=== PATIENT | female | born 1980 | race African-American/Black ===

== ENCOUNTER 2020-12-28 08:02 | Outpatient (REF) | payer OTHER, SELFPAY | END 2020-12-28 08:03 | disposition home or self-care (01) | LOC: HO.LAB 08:02 | PROVIDERS: Visit Provider Internal Medicine | DX: Z20.822 Contact with and (suspected) exposure to COVID-19 (principal) | CPT/HCPCS: 36415; C9803; U0003; U0005 ==

== ENCOUNTER 2021-06-30 15:43 | Emergency (ER) | payer OTHER, SELFPAY ==
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
--- NOTE | ~2021-06-30 | XR_ITS ---
EXAMINATION: XR ANKLE, RIGHT CLINICAL INFORMATION: Pain COMPARISON: None TECHNIQUE: AP, lateral, and mortise views of the right ankle. FINDINGS: Mild soft tissue swelling about the ankle. Underlying bony structures are unremarkable. No acute fracture or dislocation. Ankle mortise appears intact. XR/XR ankle RT min 3V IMPRESSION: Mild soft tissue swelling but no acute bony abnormality.
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
[2021-06-30 16:07] VITALS: BP 126/67; PULSE 93; RESP 16; TEMP 36.3; O2SAT 98; BMI 33.5
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
--- NOTE | 2021-06-30 17:34 | MHC.MBSS ---
PT STATING SHE IS ABOUT 6 WEEKS AND WILL SIGN CONSENT FORM TO HAVE CT SCAN. PT TOO EARLY TO GET HEART TONES ON.
[2021-06-30] MEDS: Ondansetron ODT 4 MG TAB.RAPDIS TRANSLINGU (18:17)
== END 2021-06-30 19:03 | disposition home or self-care (01) ==
PROVIDERS: Emergency Provider Emergency Medicine
DX: S13.4XXA Sprain of ligaments of cervical spine, initial encounter (principal); S13.9XXA Sprain of joints and ligaments of unspecified parts of neck, initial encounter; S93.401A Sprain of unspecified ligament of right ankle, initial encounter; S06.0X0A Concussion without loss of consciousness, initial encounter; G44.309 Post-traumatic headache, unspecified, not intractable; M25.571 Pain in right ankle and joints of right foot; H53.143 Visual discomfort, bilateral; M54.2 Cervicalgia; V43.12XA Car passenger injured in collision with other type car in nontraffic accident, initial encounter; Y93.9 Activity, unspecified; Y92.410 Unspecified street and highway as the place of occurrence of the external cause; Y99.9 Unspecified external cause status; Z79.899 Other long term (current) drug therapy
CPT/HCPCS: 70450; 72125; 73610; 99284

== ENCOUNTER 2021-07-05 16:44 | Emergency (ER) | payer OTHER, SELFPAY ==
--- NOTE | ~2021-07-05 | US_ITS ---
EXAMINATION: US OBSTETRICAL ULTRASOUND CLINICAL INFORMATION: Vaginal bleeding COMPARISON: None. TECHNIQUE: Only transabdominal scanning was performed. The patient refused endovaginal scanning. FINDINGS: Uterus appears unremarkable. A gestational sac is not seen. The endometrium appears slightly heterogeneous measuring 1.6 cm. No uterine masses are seen. The right ovary measures 2.2 x 1.2 x 1.5 cm and appears normal. Left ovary measures 2.1 x 1.6 x 1.1 cm and appears normal. No free fluid is present in the cul-de-sac US/US OB pelvic and transvaginal IMPRESSION: No gestational sac is present.
[2021-07-05 18:43] VITALS: BP 153/86; PULSE 86; RESP 18; TEMP 36.8; O2SAT 97; BMI 33.5
[2021-07-05 19:38] LABS: MANUAL DIFF FLAG NO
[2021-07-05 19:39] LABS: Basophils Percent Auto 0.4 % (0-2); Eosinophils Absolute Auto 0.2 X10*3/uL (0.0-0.4); Eosinophils Percent Auto 2.6 % (0-4); Hematocrit 35.6 % (37-47); Hemoglobin 11.4 g/dl (12.0-16.0); Imm Gran Abs Auto 0.01 X10*3/uL (0.00-0.03); Imm Gran Pct Auto 0.1 % (0.0-0.4); Lymphocytes Absolute Auto 2.6 X10*3/uL (1.2-4.9); Lymphocytes Percent Auto 33.7 % (20-40); Mean Corpuscular Hemoglobin 25.9 pg (27.0-33.0); Mean Corpuscular Volume 80.9 fL (80-98); Mean Platelet Volume 9.4 fL (9.4-12.3); Monocytes Absolute Auto 0.6 X10*3/uL (0.1-1.2); Monocytes Percent Auto 7.7 % (2-11); Neutrophils Absolute Auto 4.3 X10*3/uL (2.0-8.3); Neutrophils Percent Auto 55.5 % (45-73); Platelet Count 291 X10*3/uL (160-400); Red Cell Distribution Width 14.3 % (11.0-16.0); White Blood Count 7.8 X10*3/uL (4.8-10.8)
--- NOTE | 2021-07-05 19:40 | ED_ITS ---
HPI - General Chief complaint: Vaginal Bleeding Stated complaint: miscarriage Time Seen by Provider: 07/05/21 19:40 Source: patient Mode of arrival: ambulatory Limitations: no limitations History of Present Illness HPI Narrative: On Monday she was 6 weeks and passed clots and tissue. Since then she is still bleeding. prior patient had heart and was 6weeks and 1 day. patient is RH positive, 7 P5 Complaint: vaginal bleeding Onset (ago): day(s) Severity: mild Quality: Cramping Associated symptoms: denies other symptoms Related Data Previous Rx's Medication Instructions Recorded acetaminophen 500 mg tablet 500 mg PO Q6H PRN #14 tab 06/30/21 (Tylenol Extra Strength) lidocaine 5 % topical patch 1 patch TOPICAL DAILY #15 ea 06/30/21 (Lidoderm) ondansetron HCl 4 mg tablet 4 mg PO Q8H PRN #10 tab 06/30/21 (Zofran) Allergies Allergy/AdvReac Type Severity Reaction Status Date / Time No Known Allergies Allergy Verified 06/30/21 16:10 Review of Systems Constitutional: Constitutional: Reports no additional constitutional complaints Eyes: Eyes: Reports no additional eye complaints ENT: Denies dizziness Cardiovascular: Cardiovascular: Reports no additional cardiovascular complaints Respiratory: Respiratory: Reports as per HPI Gastrointestinal: Gastrointestinal: Reports no additional gastrointestinal complaints Genitourinary: Genitourinary: Reports no additional female genitourinary complaints Musculoskeletal: Musculoskeletal: Reports no additional musculoskeletal complaints Integumentary/Breasts: Skin/Breast: Denies rash Neurologic: Reports system reviewed and no additional complaints, except as documented, Denies dizziness and Denies Sensory deficit (Neuro) Psychiatric: Psychiatric: Denies anxiety FOR[facility] Social History Social History Advance Directives: No Advance Directives Information Provided: No Patient : No Physical Exam Vital Signs: Vital Signs: Last Vital Signs Temp 98.3 F 07/05/21 18:43 Pulse 86 07/05/21 18:43 Resp 18 07/05/21 18:43 BP 153/86 H 07/05/21 18:43 Pulse Ox 97 07/05/21 18:43 Body Mass Index 33.5 Const: General: healthy appearing Nutritional Appearance: average body habitus Orientation/consciousness: oriented to person and patient oriented x3 Limitations: no limitations HENMT: Head: Yes normal to inspection Ears: external ears normal General nose exam: Normal external nose present Mouth: Normal oral and palatal mucosa present and oropharynx normal Throat: Yes posterior oropharynx normal Eyes: General: appearance normal, both eyes and all related structures Neck: Other: supple Neck: Yes normal visual inspection Chest: Chest palpation & inspection: normal inspection of the chest Resp: Auscultation: clear to auscultation bilaterally Cardio: Jugular venous distension: no JVD Rate: regular rate Rhythm: regular rhythm Heart sounds: S1 normal heart sound present and S2 normal heart sound present GI: Inspection: Yes normal to inspection Palpation (GI): Soft to palpation, nontender and No hepatosplenomegaly present Auscultation: normal bowel sounds : Other: normal vagina, small blood in os, no clots no tissue, os is closed General: Yes no CVA tenderness Back/Spine/Pelvis: Back: no CVA tenderness Skin: General skin exam: no rashes or lesions noted Neuro: General: oriented to person and patient oriented x3 Cranial nerves: Yes CN's II-XII intact bilaterally Motor exam (neuro): 5/5 motor strength present throughout Sensory Exam: No Sensory deficit (Neuro) Extrem: General: Yes normal to inspection Psych: Appearance: grossly normal Course Reevaluation(s) Reevaluation #1: no active bleeding, cervical os not opened, US shows no retained products just thickened endometrium Time: 21:19 MDM - OB/Uterine Contractions Lab Data Result diagrams: 07/05/21 19:31 07/05/21 19:30 Labs: Lab Results 07/05/21 07/05/21 07/05/21 Range/Units 19:30 19:31 19:57 WBC 7.8 (4.8-10.8) X10*3/uL RBC 4.40 (4.20-5.50) X10*6/uL Hgb 11.4 L (12.0-16.0) g/dl Hct 35.6 L (37-47) % MCV 80.9 (80-98) fL MCH 25.9 L (27.0-33.0) pg MCHC 32.0 (31.0-35.0) g/dl RDW 14.3 (11.0-16.0) % Plt Count 291 (160-400) X10*3/uL MPV 9.4 (9.4-12.3) fL Immature Gran % (Auto) 0.1 (0.0-0.4) % Neut % (Auto) 55.5 (45-73) % Lymph % (Auto) 33.7 (20-40) % Burnet % (Auto) 7.7 (2-11) % Eos % (Auto) 2.6 (0-4) % Baso % (Auto) 0.4 (0-2) % Lymph # (Auto) 2.6 (1.2-4.9) X10*3/uL Burnet # (Auto) 0.6 (0.1-1.2) X10*3/uL Eos # (Auto) 0.2 (0.0-0.4) X10*3/uL Baso # (Auto) 0.0 (0.0-0.2) X10*3/uL Abs Immat Gran (auto) 0.01 (0.00-0.03) X10*3/uL Absolute Neuts (auto) 4.3 (2.0-8.3) X10*3/uL Absolute Nucleated RBC 0.000 (0.0-0.012) X10*3/uL Nucleated RBC % (auto) 0.0 (0.0-0.2) /100WBC Sodium 139 (135-145) mmol/L Potassium 4.0 (3.3-5.1) mmol/L Chloride 106 (96-108) mmol/L Carbon Dioxide 24 (22-29) mmol/L Anion Gap 13 (12-20) BUN 11 (9-16) mg/dL Creatinine 0.94 (0.5-1.4) mg/dL Estim Creat Clear Calc 92.1 Estimated GFR > 60 Random Glucose 87 (60-115) mg/dL Calcium 9.1 (8.4-10.2) mg/dL Total Bilirubin 0.2 (0.0-1.0) mg/dL AST 12 (5-31) U/L ALT 10 (0-31) U/L Alkaline Phosphatase 70 (39-117) U/L Total Protein 6.8 (6.5-8.0) g/dL Albumin 3.9 (3.5-5.0) g/dL Beta HCG, Quant 1413 mIU/mL Urine Color YELLOW Urine Appearance CLEAR Urine pH 6.0 (5.0-8.0) Ur Specific [place] 1.010 (1.005-1.025) Urine Protein NEG (NEG-TRACE) MG/DL Urine Glucose (UA) NEG (NEG) MG/DL Urine Ketones NEG (NEG) MG/DL Urine Blood 2+ H (NEG) Urine Nitrite NEG (NEG) Ur Leukocyte Esterase NEG (NEG) Urine RBC 5-9 H (0) /HPF Urine WBC 0-2 (0-4) /HPF Ur Squamous Epith Cells TRACE /LPF Urine Bacteria TRACE /LPF Imaging Data US - abdomen: Radiologist's impression: thickened endometrium no retained products Discharge Plan Discharge Clinical Impression: Missed Patient Disposition: Home, Self-Care Instructions: Miscarriage (ED) Prescriptions: No Action acetaminophen [Tylenol Extra Strength] 500 mg tablet 500 mg PO Q6H PRN (Reason: pain) Qty: 14 RF: 0 lidocaine [Lidoderm] 5 % adhesive patch,medicated 1 patch topical DAILY Qty: 15 RF: 0 ondansetron HCl [Zofran] 4 mg tablet 4 mg PO Q8H PRN (Reason: nausea and vomiting) Qty: 10 RF: 0 Referrals: Physician,Unknown [Primary Care Provider] - 2 days
[2021-07-05 19:57] LABS: Alanine Aminotransferase 10 U/L (0-31); Albumin Level 3.9 g/dL (3.5-5.0); Alkaline Phosphatase 70 U/L (39-117); Anion Gap 13 (12-20); Aspartate Amino Transferase 12 U/L (5-31); Bilirubin Total 0.2 mg/dL (0.0-1.0); Blood Urea Nitrogen 11 mg/dL (9-16); Calcium 9.1 mg/dL (8.4-10.2); Carbon Dioxide 24 mmol/L (22-29); Chloride 106 mmol/L (96-108); Creatinine Clr Calc Pharmacy 92.1; Estimated Glomerular Filt Rate > 60; Glucose Random 87 mg/dL (60-115); Sodium 139 mmol/L (135-145); Total Protein 6.8 g/dL (6.5-8.0)
[2021-07-05 20:03] LABS: HCG Quantitative 1413 mIU/mL
[2021-07-05 20:04] LABS: Appearance Urine CLEAR; Color Urine YELLOW; Glucose Urine UA NEG (NEG); Leukocyte Esterase Urine NEG (NEG); Nitrite Urine NEG (NEG); UACC Culture Trigger NO; Urine Blood 2+ (NEG); Urine Ketones NEG (NEG); Urine Protein NEG (NEG-TRACE)
[2021-07-05 20:13] LABS: WBC Urine 0-2 /HPF (0-4)
[2021-07-05 20:17] LABS: Bacteria Urine TRACE /LPF; Squamous Epithelial Cell Urine TRACE /LPF
== END 2021-07-05 22:08 | disposition home or self-care (01) ==
PROVIDERS: Emergency Provider Emergency Medicine
DX: O20.9 Hemorrhage in early pregnancy, unspecified (principal); Z3A.01 Less than 8 weeks gestation of pregnancy; Z79.899 Other long term (current) drug therapy
CPT/HCPCS: 36415; 76801; 76817; 80053; 81001; 84702; 85025; 99283; 99284

== ENCOUNTER 2021-07-29 10:13 | Emergency (ER) | payer OTHER, SELFPAY ==
--- NOTE | ~2021-07-29 | XR_ITS ---
EXAMINATION: XR KNEE, RIGHT CLINICAL INFORMATION: Trauma, pain COMPARISON: None TECHNIQUE: Four views of the right knee. FINDINGS: There is no fracture, dislocation, destructive process. No focal joint narrowing or erosive change or chondrocalcinosis. Hoffa's fat pad in the deep infrapatellar recess appears normal. There is some mild thickening suprapatellar bursa suggesting small effusion. The distal quadriceps tendon appears thickened and the bursal side margin is ill-defined. XR/XR knee RT 4V IMPRESSION: 1. No fracture or dislocation. 2. Probable small suprapatellar effusion. Nonspecific thickening distal quadriceps with ill-defined bursal side contour. Recommend correlation with clinical impression for potential quadriceps injury.
[2021-07-29 10:54] VITALS: BP 124/75; PULSE 92; RESP 17; TEMP 36.4; O2SAT 98; BMI 33.5
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
[2021-07-29] MEDS: traMADoL HCL 50 MG TABLET PO (12:28)
--- NOTE | 2021-07-29 13:23 | PC.NURSE ---
PT CONFRONTATIONAL WITH THIS RN. PT SAYING [facility] [place] [facility], YOU ALL DONT KNOW WHAT YOU ARE DOING OVER HERE. IM GOING TO [facility]. PT OFFERED CRUTCHES AND MELISSA WRAP FOR HER RIGHT KNEE. PT AT FIRST SAYING NO I DONT WANT THAT, YOU GUYS ARENT DOING ANYTHING FOR ME. THEN I ATTEMPT TO LEAVE THE ROOM, PT STARTS ORDERING THIS RN TO PUT MELISSA WRAP ON HER KNEE. CHARGE NURSE MADE AWARE AND PROVIDER.
[2021-07-29 13:39] VITALS: RESP 18
== END 2021-07-29 13:43 | disposition home or self-care (01) ==
PROVIDERS: Emergency Provider Emergency Medicine Emergency Medical Services; PCP Internal Medicine
DX: S80.01XA Contusion of right knee, initial encounter (principal); M25.561 Pain in right knee; Y04.8XXA Assault by other bodily force, initial encounter; Y93.9 Activity, unspecified; Y92.9 Unspecified place or not applicable; Y99.9 Unspecified external cause status; Z79.899 Other long term (current) drug therapy
CPT/HCPCS: 73564; 99283

== ENCOUNTER 2021-12-18 15:23 | Emergency (ER) | payer OTHER, SELFPAY ==
--- NOTE | ~2021-12-18 | US_ITS ---
EXAMINATION: US OBSTETRICAL ULTRASOUND CLINICAL INFORMATION: Abdominal pain. No bleeding. HCG 212. Last menstrual period is unknown. COMPARISON: 07/05/2021. TECHNIQUE: Ultrasound of the maternal pelvis is performed using transabdominal and transvaginal transducers. Transvaginal imaging is performed due to inadequate visualization transabdominally. M-mode Doppler is also performed. FINDINGS: No identifiable intrauterine gestational sac. The endometrium is heterogeneous and thickened measuring up to 1.6 cm with associated vascularity. Nabothian cysts overlie the cervix and the cervical canal appears closed. The ovaries are normal in morphology with preserved flow at the moment of this examination. The right ovary measures 2.3 x 1.4 x 1.4 cm and the left ovary measures 5.1 x 2.9 x 4.8 cm. There is a 4.5 x 2.4 x 3.8 cm simple appearing cyst in the left ovary, likely a dominant follicle. US/US OB <= 14 weeks fetus IMPRESSION: No evidence of intrauterine gestational sac in this examination. The endometrium is thickened, heterogeneous and hypervascular. Differential considerations for this appearance include retained products of conception, endometritis or less likely an AVM in the absence of recent intervention. Clinical correlation is warranted.
[2021-12-18 15:49] VITALS: BP 126/76; PULSE 100; RESP 19; TEMP 36.6; O2SAT 98; BMI 32.3
[2021-12-18 16:16] LABS: MANUAL DIFF FLAG NO
[2021-12-18 16:18] LABS: Basophils Percent Auto 0.3 % (0-2); Eosinophils Absolute Auto 0.1 X10*3/uL (0.0-0.4); Hematocrit 43.1 % (37.0-47.0); Hemoglobin 13.5 g/dl (12.0-16.0); Imm Gran Abs Auto 0.03 X10*3/uL (0.00-0.03); Imm Gran Pct Auto 0.3 % (0.0-0.4); Lymphocytes Absolute Auto 1.8 X10*3/uL (1.2-4.9); Lymphocytes Percent Auto 20.8 % (20-40); Mean Corpuscular HGB Conc 31.3 g/dl (31.0-35.0); Mean Corpuscular Volume 79.8 fL (80.0-98.0); Mean Platelet Volume 9.2 fL (9.4-12.3); Monocytes Absolute Auto 0.5 X10*3/uL (0.1-1.2); Neutrophils Absolute Auto 6.2 x10*3/uL (2.0-8.3); Neutrophils Percent Auto 71.6 % (45-73); Platelet Count 342 X10*3/uL (160-400); Red Cell Distribution Width 16.6 % (11.0-16.0); White Blood Count 8.7 X10*3/uL (4.8-10.8)
[2021-12-18 16:19] LABS: Appearance Urine CLEAR; Color Urine YELLOW; Glucose Urine UA NEG (NEG); Leukocyte Esterase Urine NEG (NEG); Nitrite Urine NEG (NEG); Specific Gravity - Urine 1.025 (1.005-1.025); UACC Culture Trigger NO; Urine Blood TRACE (NEG); Urine Ketones 5 MG/DL (NEG); Urine Protein NEG (NEG-TRACE)
[2021-12-18 16:30] LABS: Anion Gap 11 (12-20); Blood Urea Nitrogen 9 mg/dL (9-16); Calcium 9.5 mg/dL (8.4-10.2); Carbon Dioxide 26 mmol/L (22-29); Chloride 101 mmol/L (96-108); Creatinine Clr Calc Pharmacy 82.3; Estimated Glomerular Filt Rate 60; Glucose Random 103 mg/dL (60-115); Potassium 4.2 mmol/L (3.3-5.1); Sodium 134 mmol/L (135-145)
[2021-12-18 16:37] LABS: HCG Quantitative 212 mIU/mL
[2021-12-18 16:46] LABS: Bacteria Urine 1+ /LPF; Mucus Urine TRACE /LPF; Squamous Epithelial Cell Urine 1+ /LPF; WBC Urine 0-2 /HPF (0-4)
--- NOTE | 2021-12-18 20:05 | ED_ITS ---
HPI - Abdominal Pain General Chief Complaint: Abdominal Pain Stated Complaint: possible ectopic /dizziness Time Seen by Provider: 12/18/21 17:40 History of Present Illness HPI narrative: Patient is a 41-year-old female had to elective termination in the past also had a miscarriage. Patient last menstrual period was early November. [facility]. It was in the 200 range. Patient was given a pill Two days prior and was given suppositories x4 yesterday. she is complaining of some cramping in the lower abdomen. No vaginal bleeding. Patient from home. [facility] did not show an intrauterine it did show a possible cyst in the ovary. Patient never had ectopic in the past. No fever no chills no cough no congestion or upper respiratory symptoms no diaphoresis. Patient is from home Related Data Previous Rx's Medication Instructions Recorded acetaminophen 500 mg tablet 500 mg PO Q6H PRN #14 tab 06/30/21 (Tylenol Extra Strength) lidocaine 5 % topical patch 1 patch TOPICAL DAILY #15 ea 06/30/21 (Lidoderm) ondansetron HCl 4 mg tablet 4 mg PO Q8H PRN #10 tab 06/30/21 (Zofran) oxycodone 5 mg capsule 5 mg PO Q8H PRN #10 cap 07/29/21 Allergies Allergy/AdvReac Type Severity Reaction Status Date / Time No Known Allergies Allergy Verified 06/30/21 16:10 Review of Systems Review of Systems positive abdominal pain. No nausea no vomiting Yes all other systems are reviewed and are negative [facility] Past Medical History Attestation statement: The following information was validated with the patient. Social History Social History Advance Directives: No Advance Directives Information Provided: No Patient : Yes Physical Exam ED Vital Signs: Vital Signs - 24 hr 12/18/21 15:49 Temperature 98 F Pulse Rate 100 Respiratory Rate 19 Blood Pressure 126/76 Pulse Oximetry 98 BMI result Body Mass Index 32.3 Appearance: Alert. Oriented X3. No acute distress. Eyes: Pupils equal, round and reactive to light. ENT: Pharynx normal. Neck: Normal inspection. Neck supple. No lymph nodes noted. No crepitus CVS: Normal heart rate and rhythm. Pulses normal. Normal S1 and S2 Respiratory: No respiratory distress. Breath sounds normal. No Wheezing. No rales Abdomen: Soft and nontender. No rigidity. No distention. good BS x4 Skin: Skin warm and dry. Normal skin color. Normal skin turgor. Extremities: No lower extremity edema. Neurovascular intact to all extremities. No Lacerations. No Rash Neuro: Oriented X 3. No motor deficit. No sensory deficit. Moving all extermities. No slurred speech MDM - Abdominal Pain MDM Narrative Medical decision making narrative: case discussed with OBGYN Dr. Rm. will get a ultrasound to look for a large ovarian mass. Patient in no distress. Patient's quant is in 200 range which is unchanged. Case discussed with OBGYN felt that patient likely had a failed elective termination. Ultrasound review a simple cyst only. This finding was also discussed with OB. Will [facility] Worsened pain risk of ectopic still exist. Return to the emergency department immediately. In stable condition with discharge home. Medical Records Attestation: I reviewed the patient's medical records. Lab Data Attestation: I reviewed the patient's lab results. Result diagrams: 12/18/21 16:04 12/18/21 16:04 Labs: Lab Results 12/18/21 12/18/21 12/18/21 Range/Units 16:04 16:04 16:04 WBC 8.7 (4.8-10.8) X10*3/uL RBC 5.40 (4.20-5.50) X10*6/uL Hgb 13.5 (12.0-16.0) g/dl Hct 43.1 (37.0-47.0) % MCV 79.8 L (80.0-98.0) fL MCH 25.0 L (27.0-33.0) pg MCHC 31.3 (31.0-35.0) g/dl RDW 16.6 H (11.0-16.0) % Plt Count 342 (160-400) X10*3/uL MPV 9.2 L (9.4-12.3) fL Immature Gran % (Auto) 0.3 (0.0-0.4) % Neut % (Auto) 71.6 (45-73) % Lymph % (Auto) 20.8 (20-40) % Maverick % (Auto) 6.0 (2-11) % Eos % (Auto) 1.0 (0-4) % Baso % (Auto) 0.3 (0-2) % Lymph # (Auto) 1.8 (1.2-4.9) X10*3/uL [place] # (Auto) 0.5 (0.1-1.2) X10*3/uL Eos # (Auto) 0.1 (0.0-0.4) X10*3/uL Baso # (Auto) 0.0 (0.0-0.2) X10*3/uL Abs Immat Gran (auto) 0.03 (0.00-0.03) X10*3/uL Absolute Neuts (auto) 6.2 (2.0-8.3) x10*3/uL Absolute Nucleated RBC 0.000 (0.0-0.012) X10*3/uL Nucleated RBC % (auto) 0.0 (0.0-0.2) /100WBC Sodium 134 L (135-145) mmol/L Potassium 4.2 (3.3-5.1) mmol/L Chloride 101 (96-108) mmol/L Carbon Dioxide 26 (22-29) mmol/L Anion Gap 11 L (12-20) BUN 9 (9-16) mg/dL Creatinine 1.02 (0.5-1.4) mg/dL Estim Creat Clear Calc 82.3 Estimated GFR 60 Random Glucose 103 (60-115) mg/dL Calcium 9.5 (8.4-10.2) mg/dL Beta HCG, Quant 212 mIU/mL Urine Color Urine Appearance Urine pH (5.0-8.0) Ur Specific [place] (1.005-1.025) Urine Protein (NEG-TRACE) MG/DL Urine Glucose (UA) (NEG) MG/DL Urine Ketones (NEG) MG/DL Urine Blood (NEG) Urine Nitrite (NEG) Ur Leukocyte Esterase (NEG) Urine RBC (0) /HPF Urine WBC (0-4) /HPF Ur Squamous Epith Cells /LPF Urine Bacteria /LPF Urine Mucus /LPF Blood Type 12/18/21 12/18/21 Range/Units 16:04 16:04 WBC (4.8-10.8) X10*3/uL RBC (4.20-5.50) X10*6/uL Hgb (12.0-16.0) g/dl Hct (37.0-47.0) % MCV (80.0-98.0) fL MCH (27.0-33.0) pg MCHC (31.0-35.0) g/dl RDW (11.0-16.0) % Plt Count (160-400) X10*3/uL MPV (9.4-12.3) fL Immature Gran % (Auto) (0.0-0.4) % Neut % (Auto) (45-73) % Lymph % (Auto) (20-40) % Maverick % (Auto) (2-11) % Eos % (Auto) (0-4) % Baso % (Auto) (0-2) % Lymph # (Auto) (1.2-4.9) X10*3/uL [place] # (Auto) (0.1-1.2) X10*3/uL Eos # (Auto) (0.0-0.4) X10*3/uL Baso # (Auto) (0.0-0.2) X10*3/uL Abs Immat Gran (auto) (0.00-0.03) X10*3/uL Absolute Neuts (auto) (2.0-8.3) x10*3/uL Absolute Nucleated RBC (0.0-0.012) X10*3/uL Nucleated RBC % (auto) (0.0-0.2) /100WBC Sodium (135-145) mmol/L Potassium (3.3-5.1) mmol/L Chloride (96-108) mmol/L Carbon Dioxide (22-29) mmol/L Anion Gap (12-20) BUN (9-16) mg/dL Creatinine (0.5-1.4) mg/dL Estim Creat Clear Calc Estimated GFR Random Glucose (60-115) mg/dL Calcium (8.4-10.2) mg/dL Beta HCG, Quant mIU/mL Urine Color YELLOW Urine Appearance CLEAR Urine pH 6.0 (5.0-8.0) Ur Specific [place] 1.025 (1.005-1.025) Urine Protein NEG (NEG-TRACE) MG/DL Urine Glucose (UA) NEG (NEG) MG/DL Urine Ketones 5 (NEG) MG/DL Urine Blood TRACE (NEG) Urine Nitrite NEG (NEG) Ur Leukocyte Esterase NEG (NEG) Urine RBC 1-4 (0) /HPF Urine WBC 0-2 (0-4) /HPF Ur Squamous Epith Cells 1+ /LPF Urine Bacteria 1+ /LPF Urine Mucus TRACE /LPF Blood Type O Positive Discharge Plan Discharge Clinical Impression: Encounter for elective termination of , Ectopic Patient Disposition: Home, Self-Care Instructions: Ectopic (DC) Prescriptions: No Action acetaminophen [Tylenol Extra Strength] 500 mg tablet 500 mg PO Q6H PRN (Reason: pain) Qty: 14 0RF lidocaine [Lidoderm] 5 % adhesive patch,medicated 1 patch topical DAILY Qty: 15 0RF Rx Instructions: leave on most painful area for up to 12 hrs. May be substituted ondansetron HCl [Zofran] 4 mg tablet 4 mg PO Q8H PRN (Reason: nausea and vomiting) Qty: 10 0RF oxycodone 5 mg capsule 5 mg PO Q8H PRN (Reason: pain) Qty: 10 0RF [facility]errals: [facility] [Provider Group] - 2 days ( Risk of ectopic still exists. [facility].)
--- NOTE | 2021-12-18 20:12 | PM.GYNCN ---
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 The patient about that she had a positive test few days ago, [facility] and was given Mifepristone po 2 days ago followed by misoprostol 800 mcg vaginally that the patient took yesterday and since then she has been having some cramping but no vaginal bleeding. The patient states that she [facility] which showed no intrauterine and hCG was in the 200 range. No abdominal pain no vaginal bleeding no nausea or vomiting. 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 Review of Systems ROS Unobtainable: All systems reviewed & are unremarkable except as noted in HPI and below Cardiovascular: Denies Palpatations, Loss of consciousness or Chest pain Respiratory: Denies Cough, Wheezing or Shortness of breath Musculoskeletal: Denies Low back pain Gastrointestinal: Denies Heartburn, Constipation, Diarrhea, Nausea or Vomiting Genitourinary: Denies Pain with urination, Burning with urination or Urinary frequency Neurological: Denies Migranes Psychological: Denies Depression OB PMFSH Social History Social History Advance Directives: No Advance Directives Information Provided: No Patient : Yes Meds Allergies Allergy/AdvReac Type Severity Reaction Status Date / Time No Known Allergies Allergy Verified 06/30/21 16:10 [employer] Physical Exam Vitals Vital signs: Temp Pulse Resp BP Pulse Ox 98 F 100 19 126/76 98 12/18/21 15:49 12/18/21 15:49 12/18/21 15:49 12/18/21 15:49 12/18/21 15:49 BMI result Body Mass Index 32.3 Constitutional General Appearance: Healthy appearing, Well-nourished and Well-developed Psychiatric Mood and Affect: active and alert, normal mood and normal affect Skin Appearance: No rashes and No lesions Lungs Respiratory Effort: No intercostal retractions Auscultation: Clear to auscultation Cardiovascular Auscultation: RRR Abdomen Auscultation/Inspection/Palpation: Normal bowel sounds, Soft, Non-distended and No tenderness Female Genitalia (Pelvic) Exam: Deferred Additional Comments: Dr. Cope reported Abdominal exam to be benign [employer] - Results Labs CBC & Chem 7: 12/18/21 16:04 12/18/21 16:04 Labs: Short CBC 12/18/21 Range/Units 16:04 WBC 8.7 (4.8-10.8) X10*3/uL Hgb 13.5 (12.0-16.0) g/dl Hct 43.1 (37.0-47.0) % Plt Count 342 (160-400) X10*3/uL BMP 12/18/21 16:04 Sodium 134 L Potassium 4.2 Chloride 101 Carbon Dioxide 26 BUN 9 Creatinine 1.02 Calcium 9.5 Urine 12/18/21 Range/Units 16:04 Urine Color YELLOW Urine Appearance CLEAR Urine pH 6.0 (5.0-8.0) Ur Specific [place] 1.025 (1.005-1.025) Urine Protein NEG (NEG-TRACE) MG/DL Urine Glucose (UA) NEG (NEG) MG/DL Assessment and Plan (1) Early stage of : Status: Acute Since the patient's abdominal exam is benign, hCG 252 and Rh positive, recommended the following: pelvic ultrasound to rule out any adnexal masses suspicious for ectopic , if negative, the patient is to be discharged home with SAB/incomplete AB/ectopic warnings, to come back for abdominal/pelvic pain fever or heavy vaginal bleeding otherwise [facility] .
[2021-12-18] MEDS: 0.9 % Sodium Chloride 1,000 ML 999 ML IV (20:18)
== END 2021-12-18 23:33 | disposition home or self-care (01) ==
PROVIDERS: Emergency Provider Emergency Medicine Emergency Medical Services
DX: O07.39 Failed attempted termination of pregnancy with other complications (principal); O00.00 Abdominal pregnancy without intrauterine pregnancy; O08.89 Other complications following an ectopic and molar pregnancy; R10.30 Lower abdominal pain, unspecified; N88.8 Other specified noninflammatory disorders of cervix uteri; N83.292 Other ovarian cyst, left side
CPT/HCPCS: 36415; 76801; 80048; 81001; 84702; 85025; 86900; 86901; 96360; 99283; 99284

== ENCOUNTER 2021-12-22 13:21 | Outpatient (REF) | payer OTHER, SELFPAY ==
[2021-12-22 15:26] LABS: HCG Quantitative 12 mIU/mL
[2021-12-23 05:29] LABS: CT PCR NOT DETECTED (Not Detect.); NG PCR NOT DETECTED (Not Detect.)
== END 2021-12-22 13:22 | disposition home or self-care (01) ==
LOC: HO.LAB 13:21
PROVIDERS: Visit Provider Obstetrics & Gynecology
DX: O03.9 Complete or unspecified spontaneous abortion without complication (principal); Z30.09 Encounter for other general counseling and advice on contraception
CPT/HCPCS: 36415; 84702; 87491; 87591; 99202

== ENCOUNTER 2022-02-14 20:40 | Emergency (ER) | payer OTHER, SELFPAY ==
--- NOTE | 2022-02-14 | ECG_ITS ---
Test Reason : CHEST PAIN Blood Pressure : / mmHG Vent. Rate : 079 BPM Atrial Rate : 079 BPM P-R Int : 186 ms QRS Dur : 086 ms QT Int : 366 ms P-R-T Axes : 060 060 039 degrees QTc Int : 419 ms Normal sinus rhythm Normal ECG No previous ECGs available Referred By: Generic ED Physician Electronically Signed By:DAYAN COTA MD
== END 2022-02-14 23:01 | disposition left against medical advice (07) ==
LOC: HO.ED 22:58
PROVIDERS: Emergency Provider Emergency Medicine
DX: R07.9 Chest pain, unspecified (principal)
CPT/HCPCS: 93005; 99281; 99283

== ENCOUNTER 2022-03-31 14:36 | Outpatient (REF) | payer OTHER, SELFPAY ==
[2022-04-06 22:56] LABS: HPV mRNA E6/E7 rflx Not Detected (Not Detected)
== END 2022-03-31 14:37 | disposition home or self-care (01) ==
LOC: HO.LAB 14:36
PROVIDERS: Visit Provider Obstetrics & Gynecology
DX: Z01.419 Encounter for gynecological examination (general) (routine) without abnormal findings (principal); Z11.51 Encounter for screening for human papillomavirus (HPV)
CPT/HCPCS: 87624; 88142

== ENCOUNTER 2023-01-04 19:17 | Emergency (ER) | payer OTHER, SELFPAY ==
--- NOTE | ~2023-01-04 | US_ITS ---
EXAMINATION: US VENOUS ULTRASOUND WITH DOPPLER LOWER EXTREMITY, LEFT CLINICAL INFORMATION: Swelling, postop COMPARISON: None available. TECHNIQUE: Ultrasound of the deep veins is performed from the hip to the calf with compression sonography and color and pulse Doppler assessment. Spectral analysis with color-flow imaging is performed. FINDINGS: There is normal venous compression and respiratory variation and augmented flow. The visualized common femoral vein, superficial femoral vein, profunda femoral vein, popliteal vein, and the trifurcation region shows no evidence of deep venous thrombosis. There is no significant popliteal fossa cyst. In the superficial soft tissues of the left inguinal region, there is a 13.4 x 3.5 x 7.4 cm complex well-defined fluid collection. US/US venous duplex LE LT IMPRESSION: No DVT demonstrated in the left lower extremity.
[2023-01-04 19:28] VITALS: BP 146/70; PULSE 100; RESP 16; TEMP 36.4; O2SAT 98; BMI 29.0
--- NOTE | 2023-01-04 19:29 | ED.GENADULT ---
HPI - General Adult General Chief complaint: Extremity Problem <CAMILA Santillan - Last Filed: 01/04/23 19:35> Stated complaint: left inner thigh..states pocket of fluid <CAMILA Santillan - Last Filed: 01/04/23 19:35> Time Seen by Provider: 01/04/23 21:22 <CAMILA Santillan - Last Filed: 01/04/23 19:35> Source: patient <Nico Lieberman MD - Last Filed: 01/04/23 23:32> Mode of arrival: ambulatory <Nico Lieberman MD - Last Filed: 01/04/23 23:32> Limitations: no limitations <Nico Lieberman MD - Last Filed: 01/04/23 23:32> History of Present Illness HPI narrative: Patient is status post BBL with fat transfer. on 12/21 in [place] comes here for left thigh swelling ultrasound done prior to my evaluation showed fluid collection > seroma. No pain no fever no redness of the skin <Nico Lieberman MD - Last Filed: 01/04/23 23:32> Related Data Home medications: Home Medications Medication Instructions Recorded Confirmed divalproex 500 mg tablet,delayed 1,000 mg PO BID 03/31/22 release (Depakote) Previous Rx's Medication Instructions Recorded acetaminophen 500 mg tablet 500 mg PO Q6H PRN pain #14 tabs 06/30/21 (Tylenol Extra Strength) <CAMILA Santillan - Last Filed: 01/04/23 19:35> Allergies/adverse reactions: Allergies Allergy/AdvReac Type Severity Reaction Status Date / Time No Known Allergies Allergy Verified 01/04/23 19:34 <CAMILA Santillan - Last Filed: 01/04/23 19:35> Review of Systems Review of Systems: Yes all other systems are reviewed and are negative <Nico Lieberman MD - Last Filed: 01/04/23 23:32> PMFSH Past Medical History Medical History: Medical History Anemia Asthma Bipolar 1 disorder Cervical high risk HPV (human papillomavirus) test positive <CAMILA Santillan - Last Filed: 01/04/23 19:35> Social History Social History: Social History Patient Tobacco Use Status: Never used Tobacco Advance Directives: No Advance Directives Information Provided: No Patient : No <CAMILA Santillan - Last Filed: 01/04/23 19:35> Physical Exam ED Vital Signs: Vital Signs - 24 hr 01/04/23 19:28 01/04/23 22:00 Temperature 97.6 F 97.9 F Pulse Rate 100 96 Respiratory Rate 16 16 Blood Pressure 146/70 H 115/69 Pulse Oximetry 98 97 Oxygen Delivery Method Room Air BMI result Body Mass Index 29.0 <CAMILA Santillan - Last Filed: 01/04/23 19:35> Vital Signs - 24 hr 01/04/23 19:28 01/04/23 22:00 Temperature 97.6 F 97.9 F Pulse Rate 100 96 Respiratory Rate 16 16 Blood Pressure 146/70 H 115/69 Pulse Oximetry 98 97 Oxygen Delivery Method Room Air BMI result Body Mass Index 29.0 <Nico Lieberman MD - Last Filed: 01/04/23 23:32> Appearance: Alert. Oriented X3. No acute distress. Neck: Normal inspection. Neck supple. CVS: Normal heart rate and rhythm. Pulses normal. Respiratory: No respiratory distress. Equal air entry bilateral, Abdomen: Soft and nontender. Bowel sounds are present, Skin: Skin warm and dry. Normal skin color. Normal skin turgor. Extremities: No lower extremity edema. No calf tenderness large soft tissue fluctuance swelling left thigh Neuro: Oriented X 3. <Nico Lieberman MD - Last Filed: 01/04/23 23:32> Course Course Course Narrative: RME - 42 yo female with recent inner thigh liposuction on 12/21 in [place] presents to the ER for evaluation of left thigh seroma and left leg swelling that started last week. She has been getting lymphatic massages that has not helped the drainage. No fevers, redness or warmth over the area. No drainage. She would like to have the seroma drained. It makes it hard to walk. Exam is consistent with a moderate sized seroma to the inner thigh, no overlying warmth or erythema. She has some generalized swelling of the LLE into the calf and foot, tightness in the calf. Plan: U/S LLE to r/o DVT, ?discuss with gen surgery management of seroma. <CAMILA Santillan - Last Filed: 01/04/23 19:35> Medications Administered Discontinued Medications Generic Name Dose Route Start Last Admin Trade Name Freq PRN Reason Stop Dose Admin Lidocaine HCl 5 ml 01/04/23 21:46 01/04/23 22:05 Lidocaine Hcl 1 % Mpf 5 Ml Vial INFILTRATI 01/04/23 21:47 5 ml ONCE ONE Administration <CAMILA Santillan - Last Filed: 01/04/23 19:35> Medications Administered Discontinued Medications Generic Name Dose Route Start Last Admin Trade Name Freq PRN Reason Stop Dose Admin Lidocaine HCl 5 ml 01/04/23 21:46 01/04/23 22:05 Lidocaine Hcl 1 % Mpf 5 Ml Vial INFILTRATI 01/04/23 21:47 5 ml ONCE ONE Administration <Nico Lieberman MD - Last Filed: 01/04/23 23:32> Procedures Abscess I/D Site: lower extremity (Left thigh) <Nico Lieberman MD - Last Filed: 01/04/23 23:32> Side (if applicable): left <Nico Lieberman MD - Last Filed: 01/04/23 23:32> Local Anesthetic: lidocaine 1% <Nico Lieberman MD - Last Filed: 01/04/23 23:32> Amount of anesthesia used (mL): 1 <Nico Lieberman MD - Last Filed: 01/04/23 23:32> Technique: needle aspiration <Nico Lieberman MD - Last Filed: 01/04/23 23:32> Amount of fluid expressed (mL): 100 <Nico Lieberman MD - Last Filed: 01/04/23 23:32> Sent for culture/gram staining?: No <Nico Lieberman MD - Last Filed: 01/04/23 23:32> Irrigation: No <Nico Lieberman MD - Last Filed: 01/04/23 23:32> Packing used?: none <Nico Lieberman MD - Last Filed: 01/04/23 23:32> Medical Decision Making Medical Decision Making MDM Narrative: Patient had a huge seroma left thigh post fast transfer and BBL surgery which was drained using needle aspiration clear fluid was drained about 100 cc patient felt much better and comfortable pressure dressing was applied <Nico Lieberman MD - Last Filed: 01/04/23 23:32> Discharge Plan Discharge Clinical Impression: Seroma, post-traumatic <CAMILA Santillan - Last Filed: 01/04/23 19:35> Patient Disposition: Home, Self-Care <CAMILA Santillan - Last Filed: 01/04/23 19:35> Instructions: Seroma (DC) <CAMILA Santillan - Last Filed: 01/04/23 19:35> Additional Instructions: Local care as advised Follow-up with surgeon if any concerns <CAMILA Santillan - Last Filed: 01/04/23 19:35> Prescriptions: No Action acetaminophen [Tylenol Extra Strength] 500 mg tablet 500 mg PO Q6H PRN (Reason: pain) Qty: 14 0RF divalproex [Depakote] 500 mg tablet,delayed release (DR/EC) 1,000 mg PO BID <CAMILA Santillan - Last Filed: 01/04/23 19:35> Referrals: Melida Aponte MD [Physician] - 1 week <CAMILA Santillan - Last Filed: 01/04/23 19:35> Interventions: ED Discharge Assessment Last Done: 01/04/23 23:27 <CAMILA Santillan - Last Filed: 01/04/23 19:35>
--- OUTSIDE RECORDS SUMMARY | 2023-01-04 21:37 | XMS_ITS | Continuity of Care Document ---
Author Name Unknown Organization [facility] Address [address] [place] [address]- Care Team Providers Care Coffee Brewer Name Role Phone Checo John Primary Care Physician [phone] Encounter [facility] Date(s): 04/15/22 - 08/13/22 [facility] [address] [place] [address] Attending Physician: Jenae WOLF, [facility] Referring Physician: Checo John Allergies, Adverse Reactions, Alerts Substance Reaction Severity Status Milk Products Resolved Pork Active Immunizations Given and Recorded Vaccine Date Status Refusal Reason SARS-CoV-2 (COVID-19) mRNA-1273 vaccine 08/28/21 R ecorded SARS-CoV-2 (COVID-19) mRNA-1273 vaccine 07/31/21 R ecorded tetanus/diphtheria/pertussis, acel(Tdap) 10/24/13 Given Medications albuterol CFC free 90 mcg/inh inhalation aerosol 2, puffs, Inhalation, 4 times a day, PRN, # 1 each, Refills 11, Tot. Refills 11, Maintenance, 08/20/21 16:07:00 EST, Aerosol, Route to Pharmacy Electronically, [id number], [facility] #[id number], 168, cm, 08/20/21 15:40:... Start Date: 08/20/21 Stop Date: 08/15/22 Status: Ordered Depakote ER = 250 mg, By Mouth, Daily, 0 Refills, Maintenance, 02/11/22 13:50:00 EDT, Partial fill upon patientrequest if the prescription is for a schedule II opioid drug. Start Date: 02/11/22 Status: Ordered fluconazole 150 mg oral tablet 1 tablet = 150 mg, By Mouth, Once, Repeat dose if still having symptoms in 72 hours, # 2 tablet, 0 Refills, Soft Stop, 07/08/22 12:02:00 EDT, Tablet, [facility] #[id number], Partial fill upon patient request if the prescription is for a schedule... Start Date: 07/08/22 Status: Ordered Problem List Condition Confirmation Course Effective Dates Status H ealth Status Informant Anxiety Confirmed Active Asthma Confirmed Active Bipolar disorder (manic depression) 1 Confirmed Active Intrahepatic cholestasis of Confirmed Active Chronic eczema Confirmed Active Sarcoidosis of skin Confirmed Active History of depression Confirmed Active History of abnormal cervical Pap smear Confirmed Active History of marijuana use Confirmed Active Latent tuberculosis Confirmed Active Irritable bowel Confirmed Active Migraine Confirmed Active AMA (advanced maternal age) multigravida 35+ Confirmed Active Obese class I Confirmed Active N Care Management [facility], Scarlett Walton [phone] Confirmed Active Posttraumatic stress disorder Confirmed Active Confirmed Active Urinary incontinence Confirmed Active Ventricular ectopy Confirmed Active 1Hx suicide attempt Social History Social History Type Response Smoking Status Former smoker, quit more than 30 days ago entered on: 11/11/21 Sex 1Has been off since 2006 Patient Care team information Personnel Name: Checo John Address: Address: [address] [place] [address] Primary [place], [place] [address]
--- OUTSIDE RECORDS SUMMARY | 2023-01-04 21:37 | XMS_ITS | Continuity of Care Document ---
Author Name Unknown Organization [facility] Address [address] [place] [address]- Care Team Providers Care Trust Manager Assistant Name Role Phone Checo John Primary Care Physician Encounter [facility] Date(s): 05/03/22 - 06/03/22 [facility] [address] [place] [id number] Attending Physician: Pb Suero MD Admitting Physician: Pb Suero MD Allergies, Adverse Reactions, Alerts Substance Reaction Severity [...] 16:07:00 EST, Aerosol, Route to Pharmacy Electronically, [id number], [facility] #[id number], 168, cm, 08/20/21 15:40:... Start Date: 08/20/21 Stop Date: 08/15/22 Status: Ordered Problem List Condition Effective Dates Status Health Status Inform ant Anxiety(Confirmed) Active Asthma(Confirmed) Active Bipolar disorder (manic depression)(Confirmed) 1 Active Intrahepatic cholestasis of (Confirmed) Active Chronic eczema(Confirmed) Active Sarcoidosis of skin(Confirmed) Active History of depression(Confirmed) Active History of abnormal cervical Pap smear(Confirmed) Active History of marijuana use(Confirmed) Active Latent tuberculosis(Confirmed) Active Irritable bowel(Confirmed) Active Migraine(Confirmed) Active AMA (advanced maternal age) multigravida 35+(Confirmed) Active Obese class I(Confirmed) Active [facility] , Scarlett Walton [phone](Confirmed) Active Posttraumatic stress disorder(Confirmed) Active (Confirmed) Active Urinary incontinence(Confirmed) Active Ventricular ectopy(Confirmed) Active 1Hx suicide attempt Social History Social History Type Response Smoking Status Former smoker, quit more than 30 days ago entered on: 11/11/21 Sex 1Has been off since 2006 Care Team Personnel Name: Checo John Address: [address] [place] [address]
--- OUTSIDE RECORDS SUMMARY | 2023-01-04 21:37 | XMS_ITS | Continuity of Care Document ---
Author Name Unknown Organization [facility] Address [address] [place] [address]- Care Team Providers Care Clinical Pharmacy Specialist Name Role Phone Sadaf Dawkins MD Primary Care Physician Encounter [facility] Date(s): 03/02/21 - 04/01/[address] [address]- Allergies, Adverse Reactions, Alerts Substance Reaction Severity Status Milk Products Resolved Pork Active Immunizations Given and Recorded Vaccine Date Status Refusal Reason tetanus/diphtheria/pertussis, acel(Tdap) 10/24/13 Given Medications Abilify 10 mg oral tablet 10 mg, 1, tablet, By Mouth, Daily, # 30 tablet, Refills 0, Tot. Refills 0, Maintenance, 05/22/20 14:30:00 EDT, Route to Pharmacy Electronically, [facility] #[id number], 168, cm, 05/22/20 14:15:00 EDT, Height, 83.7, kg, 04/29/20 15:56:00 EDT, Dry... Start Date: 05/22/20 Status: Ordered Actigall 300 mg oral capsule 300 mg, 1, capsule, By Mouth, 3 times a day, # 90 capsule, Refills 1, Tot. Refills 1, Maintenance, 05/29/20 13:47:00 EDT, Route to Pharmacy Electronically, [facility] #[id number], 168, cm, 05/26/20 15:33:00 EDT, Height, 83.58, kg, 05/26/20 15:33:... Start Date: 05/29/20 Status: Ordered albuterol CFC free 90 mcg/inh inhalation aerosol 2, puffs, Inhalation, 4 times a day, PRN, # 25 Gm, Refills 5, Tot. Refills 5, Maintenance, 01/09/2018:29:00 EDT, Aerosol, Route to Pharmacy Electronically, [id number], [facility] #[id number], 168, cm, 01/10/20 15:21:00... Start Date: 01/10/20 Status: Ordered ibuprofen 600 mg oral tablet 600 mg, 1, tablet, By Mouth, 4 times a day, PRN, # 40 tablet, Refills 0, Tot. Refills 0, Maintenance, Pain, 06/10/20 10:28:00 EDT, Route to Pharmacy Electronically, [facility] #[id number], 168, cm, 06/10/20 9:28:00 EDT, Height, 83.58, kg, ... Start Date: 06/10/20 Status: Ordered Problem List Condition Effective Dates Status Health Status Inform ant Anxiety(Confirmed) Active Asthma(Confirmed) Active Bipolar disorder (manic depression)(Confirmed) 1 Active Intrahepatic cholestasis of (Confirmed) Active Chronic eczema(Confirmed) Active History of depression(Confirmed) Active History of abnormal cervical Pap smear(Confirmed) Active History of marijuana use(Confirmed) Active Irritable bowel(Confirmed) Active Migraine(Confirmed) Active AMA (advanced maternal age) multigravida 35+(Confirmed) Active Care Management [facility] (Confirmed) Active Posttraumatic stress disorder(Confirmed) Active (Confirmed) Active Sarcoid(Confirmed) 2 Active Urinary incontinence(Confirmed) Active 1Hx suicide attempt 2Possible dx sarcoid. Hx recurrent right uveitis. Elevated MELISSA level. PET w/ increased uptake in parotids. Social History Social History Type Response Smoking Status Former smoker; Type: Cigarettes; Tobacco use times per day: 1 pack/week; 1 entered on: 10/24/13 Sex 1Has been off since 2006
--- OUTSIDE RECORDS SUMMARY | 2023-01-04 21:37 | XMS_ITS | Continuity of Care Document ---
Author Name Unknown Organization [facility] Address [address] [place] [address]- Care Team Providers Care Converting Operator Name Role Phone Juancho WOLF, Sadaf Primary Care Physician [phone] Encounter [facility] Date(s): 10/03/19 - 10/13/19 [facility] [address] [place] [address]- [facility] Attending Physician: Ora Brown Admitting Physician: Ora Brown Referring Physician: AdmtrOra Allergies, Adverse Reactions, Alerts Substance Reaction Severity Status Milk Products Active Pork Active Immunizations Given and Recorded Vaccine Date Status Refusal Reason tetanus/diphtheria/pertussis, acel(Tdap) 10/24/13 Given Medications albuterol CFC free 90 mcg/inh inhalation aerosol 2, puffs, Inhalation, 4 times a day, PRN, # 25 Gm, Refills 5, Tot. Refills 5, Maintenance, 05/02/1916:45:21 EDT, Aerosol, Route to Pharmacy Electronically, [id number], [facility] #[id number] Start Date: 05/02/19 Status: Ordered Banophen 50 mg oral capsule 2 capsule, By Mouth, Daily at bedtime, PRN NEEDED FOR INSOMNIA, # 60 capsule, 0 Refills, Soft Stop, 09/30/19 7:45:00 EST, [facility] #[id number], 168, cm, 08/20/19 13:51:00 EST, Height, 97.9,kg, 05/21/19 16:53:00 EDT, Dry Weight Start Date: 09/30/19 Status: Ordered cloNIDine 0.1 mg oral tablet 0.1 mg, 1, tablet, By Mouth, 3 times a day, # 90 tablet, Refills 4, Tot. Refills 4, Maintenance, 05/09/19 12:24:02 EDT, Route to Pharmacy Electronically, [id number], [facility] #[id number] Start Date: 05/09/19 Stop Date: 10/06/19 Status: Ordered Cryselle 28 oral tablet 1 tablet, By Mouth, Daily, # 28 tablet, 5 Refills, Maintenance, 05/09/19 12:46:42 EDT, 1 tablet By Mouth Daily,x28 days Start Date: 05/09/19 Stop Date: 10/24/19 Status: Ordered Depo-Provera Contraceptive 150 mg/mL intramuscular suspension 1 mL = 150 mg, Intramuscular, Every 3 months, # 1 mL, 0 Refills, Maintenance, 08/20/19 14:19:06 EST, Suspension Start Date: 08/20/19 Status: Ordered Diflucan 150 mg oral tablet 1 tablet = 150 mg, By Mouth, Once, # 1 tablet, 0 Refills, Soft Stop, 10/05/19 13:18:00 EST, Tablet,[facility] #[id number], 168, cm, 10/03/19 10:33:00 EST, Height, 93.3, kg, 10/03/19 10:33:00 EST, Dry Weight Start Date: 10/05/19 Status: Ordered divalproex sodium 500 mg oral tablet, extended release 1 tablet = 500 mg, By Mouth, Daily, # 30 tablet, 0 Refills, Maintenance, 07/12/19 15:48:09 EDT, ER Tablet Start Date: 07/12/19 Status: Ordered doxepin 50 mg oral capsule 1 capsule = 50 mg, By Mouth, Daily at bedtime, # 30 capsule, 4 Refills, Maintenance, 05/09/19 12:24:47 EDT Start Date: 05/09/19 Stop Date: 10/06/19 Status: Ordered famotidine 20 mg oral tablet 20 mg, 1, tablet, By Mouth, 2 times a day, # 60 tablet, Refills 0, Tot. Refills 0, Maintenance, 07/16/16 22:20:46, Route to Pharmacy Electronically, [id number], [id number] Start Date: 07/16/16 Status: Ordered prazosin 5 mg oral capsule 5 mg, 1, capsule, By Mouth, Daily at bedtime, # 30 capsule, Refills 4, Tot. Refills 4, Maintenance,05/09/19 12:25:10 EDT, Route to Pharmacy Electronically, [id number], [id number] Start Date: 05/09/19 Stop Date: 10/06/19 Status: Ordered shoe insoles shoe insoles, See Instructions, # 2 each, Refills 0, Tot. Refills 0, Maintenance, dx: foot pain ICD10: M79.672 duration: 99 weeks, 05/02/19 17:41:54 EDT, Compound Start Date: 05/02/19 Status: Ordered Problem List Condition Effective Dates Status Health Status Inform ant Asthma(Confirmed) Active Bipolar disorder (manic depression)(Confirmed) 1 Active Chronic eczema(Confirmed) Active History of marijuana use(Confirmed) Active Care Management [facility] , Nela MarkhamLivier CC [phone](Confirmed) Active Posttraumatic stress disorder(Confirmed) Active Sarcoid(Confirmed) 2 Active Urinary incontinence(Confirmed) Active 1Hx suicide attempt 2Possible dx sarcoid. Hx recurrent right uveitis. Elevated MELISSA level. PET w/ increased uptake in parotids. Social History Social History Type Response Smoking Status Never smoker entered on: 10/26/14 Sex 1Has been off since 2006
--- OUTSIDE RECORDS SUMMARY | 2023-01-04 21:37 | XMS_ITS | Continuity of Care Document ---
Author Name Unknown Organization [facility] [place] Address [address] [place] [address]- Care Team Providers Care Sand Mixer Operator Name Role Phone Checo John Primary Care Physician [phone] Encounter [facility] Date(s): 05/17/22 - 06/16/22 [facility] [place] [address] [place], [place] [address] Attending Physician: AdmOra landon Admitting Physician: Admtr, Ar8 Referring Physician: Admtr, Ar8 Allergies, Adverse Reactions, Alerts Substance Reaction Severity [...] 16:07:00 EST, Aerosol, Route to Pharmacy Electronically, [id number], [facility] #[id number], 168, cm, 08/20/21 15:40:... Start Date: 08/20/21 Stop Date: 08/15/22 Status: Ordered Depakote ER = 250 mg, By Mouth, Daily, 0 Refills, Maintenance, 02/11/22 13:50:00 EDT, Partial fill upon patientrequest if the prescription is for a schedule II opioid drug. Start Date: 02/11/22 Status: Ordered Problem List Condition Effective Dates [...] multigravida 35+(Confirmed) Active Obese class I(Confirmed) Active [facility] Care Management [facility] , Scarlett Walton [phone](Confirmed) Active Posttraumatic stress disorder(Confirmed) Active (Confirmed) Active Urinary incontinence(Confirmed) Active Ventricular ectopy(Confirmed) Active 1Hx suicide attempt Social History Social History Type Response Smoking Status Former smoker, quit more than 30 days ago entered on: 11/11/21 Sex 1Has been off since 2006 Care Team Personnel Name: Checo John Address: [address] [place] [address] Primary Care [place], [place] [address]
--- OUTSIDE RECORDS SUMMARY | 2023-01-04 21:37 | XMS_ITS | Continuity of Care Document ---
Author Name Unknown Organization [facility] Address [address] [place] [address]- Care Team Providers Care Corporate Event Planner Name Role Phone Checo John Primary Care Physician [phone] Encounter [facility] Date(s): 11/23/22 - 12/23/22 [facility] [address] [place] [address] Attending Physician: AdmOra landon Admitting Physician: AdmtrOra Referring Physician: Admtr, Ar8 Allergies, Adverse Reactions, [...] 16:07:00 EST, Aerosol, Route to Pharmacy Electronically, [id number], [id number], 168, cm, 08/20/21 15:40:... Start Date: 08/20/21 [...] Refills, Soft Stop, 07/08/22 12:02:00 EDT, Tablet, [facility] #[id number], Partial fill upon patient request if the prescription is for a schedule... Start Date: 07/08/22 Status: Ordered fluconazole 150 mg oral tablet 1 tablet = 150 mg, By Mouth, Once, Repeat dose if still having symptoms in 72 hours, # 2 tablet, 0 Refills, Soft Stop, 12/06/22 9:23:00 EST, Tablet, [facility] #[id number], Partial fill upon patient request if the prescription is for a schedule I... Start Date: 12/06/22 Status: Ordered Problem List Condition Confirmation Course [...] Confirmed Active Obese class I Confirmed Active [facility] Care Management [facility] Poojalaurence Hartman [phone] Confirmed Active Posttraumatic stress disorder Confirmed Active Confirmed Active Urinary incontinence Confirmed Active Ventricular ectopy Confirmed Active 1Hx suicide attempt Social History Social History Type Response Smoking Status Former smoker, quit more than 30 days ago entered on: 11/11/21 Sex 1Has been off since 2006 Patient Care team information Care Team Personnel Name: Era Cano NP Position: Reference Physician Member Role: Primary Care Nurse Address: Address: [address] [place] [address]- [place] Name: Mally Ham RN Position: S RN Member Role: Primary Care Nurse Name: Checo John Position: [facility] PCO Associate Professional Member Role: PCP Address: Address: [address] [place] [address] [place] [address]- Name: Rossana Avalos RN Position: [facility] RN Member Role: Primary Care Nurse Care Team Related Persons Name: JEANETTE PASQUALE Address: [address] [place] [address] Name: ANICETO LUNA Address: home [address] [place] [address] Name: NAIMA LUNA Address: Address: home [address] [place] [address] [place] Name: PT STATES NO ONE, NONE
--- OUTSIDE RECORDS SUMMARY | 2023-01-04 21:37 | XMS_ITS | Continuity of Care Document ---
Author Name Unknown Organization [facility] Address [address] [place] [address]- Care Team Providers Care Resume Specialist Name Role Phone Checo John Primary Care Physician Encounter [facility] Date(s): 07/14/22 - 08/13/22 [facility] [address] [place] [id number] Attending Physician: Ora Brown Admitting Physician: Ora Brown Referring Physician: Ora Brown Allergies, Adverse Reactions, Alerts Substance Reaction Severity [...] 16:07:00 EST, Aerosol, Route to Pharmacy Electronically, [id number], [id number], 168, cm, 08/20/21 15:40:... Start Date: 08/20/21 [...] Refills, Soft Stop, 07/08/22 12:02:00 EDT, Tablet, [facility][id number], Partial fill upon patient request if the [...] class I Confirmed Active [phone] Confirmed Active Posttraumatic stress disorder Confirmed Active Confirmed Active Urinary incontinence Confirmed Active Ventricular ectopy Confirmed Active 1Hx suicide attempt Social History Social History Type Response Smoking Status Former smoker, quit more than 30 days ago entered on: 11/11/21 Sex 1Has been off since 2006 Patient Care team information Personnel Name: Checo John Address: Address: [address] [place] [address] Primary Care [place], [place] [address]
--- OUTSIDE RECORDS SUMMARY | 2023-01-04 21:37 | XMS_ITS | Continuity of Care Document ---
Author Name Unknown Organization [facility] Address [address] [place] [address], [address] [place] [address]- Care Team Providers Care Head Turning Machine Operator Name Role Phone Sadaf Dawkins MD Primary Care Physician [phone] Encounter [facility] Date(s): 06/02/20 - 06/09/20 [facility] [address] [facility], [address] [place] [address]- [facility] Attending Physician: Lizy Stock MD Referring Physician: Amanda Rosario CNM Allergies, Adverse Reactions, Alerts Substance Reaction Severity Status Milk Products Resolved Pork Active Immunizations Given and Recorded Vaccine Date Status Refusal Reason tetanus/diphtheria/pertussis, acel(Tdap) 10/24/13 Given Medications Abilify 10 mg oral tablet 10 mg, 1, tablet, By Mouth, Daily, # 30 tablet, Refills 0, Tot. Refills 0, Maintenance, 05/22/20 14:30:00 EDT, Route to Pharmacy Electronically, [facility] #[id number], 168, cm, 05/22/20 14:15:00 EDT, Height, 83.7, kg, 04/29/20 15:56:00 EDT, Dry... Start Date: 05/22/20 Status: Ordered Actigall 300 mg oral capsule 300 mg, 1, capsule, By Mouth, 3 times a day, # 90 capsule, Refills 1, Tot. Refills 1, Maintenance, 05/29/20 13:47:00 EDT, Route to Pharmacy Electronically, [facility] #[id number], 168, cm, 05/26/20 15:33:00 EDT, Height, 83.58, kg, 05/26/20 15:33:... Start Date: 05/29/20 Status: Ordered albuterol CFC free 90 mcg/inh inhalation aerosol 2, puffs, Inhalation, 4 times a day, PRN, # 25 Gm, Refills 5, Tot. Refills 5, Maintenance, 01/09/2018:29:00 EDT, Aerosol, Route to Pharmacy Electronically, [id number], [facility] #[id number], 168, cm, 01/10/20 15:21:00... Start Date: 01/10/20 Status: Ordered Plus Iron oral tablet 1 tablet, By Mouth, Daily, # 30 tablet, 11 Refills, Maintenance, 05/22/20 14:31:00 EDT, Tablet, [facility] #[id number], 1 tablet By Mouth Daily, 168, cm, 05/22/20 14:15:00 EDT, Height, 83.7, kg,04/29/20 15:56:00 EDT, Dry Weight Start Date: 05/22/20 Status: Ordered promethazine 12.5 mg rectal suppository 1 supp = 12.5 mg, Rectally, Every 6 hours, PRN for nausea/vomiting, # 40 supp, 1 Refills, Maintenance, 05/29/20 13:45:00 EDT, Suppository, [facility] #[id number], 168, cm, 05/26/20 15:33:00 EDT,Height, 83.58, kg, 05/26/20 15:33:00 EDT, Dry Weight Start Date: 05/29/20 Status: Ordered Reglan 10 mg oral tablet 1 tablet = 10 mg, By Mouth, 3 times a day before meals and bedtime, 0 Refills, Maintenance, 06/07/20 21:04:00 EDT Start Date: 06/07/20 Status: Ordered Zofran 4 mg oral tablet See Instructions, 1 tablet By Mouth Daily, # 20 each, 1 Refills, Maintenance, 05/12/20 16:49:00 EDT, [facility] #[id number], 168, cm, 04/29/20 15:56:00 EDT, Height, 83.7, kg, 04/29/20 15:56:00 EDT, Dry Weight Start Date: 05/12/20 Status: Ordered Problem List Condition Effective Dates Status Health Status Inform ant Anxiety(Confirmed) Active Asthma(Confirmed) Active Bipolar disorder (manic depression)(Confirmed) 1 Active Intrahepatic cholestasis of (Confirmed) Active Chronic eczema(Confirmed) Active History of depression(Confirmed) Active History of abnormal cervical Pap smear(Confirmed) Active History of marijuana use(Confirmed) Active Irritable bowel(Confirmed) Active Migraine(Confirmed) Active AMA (advanced maternal age) multigravida 35+(Confirmed) Active Care Management [facility] , Nela Byrd CC [phone](Confirmed) Active Posttraumatic stress disorder(Confirmed) Active (Confirmed) Active Sarcoid(Confirmed) 2 Active Urinary incontinence(Confirmed) Active 1Hx suicide attempt 2Possible dx sarcoid. Hx recurrent right uveitis. Elevated MELISSA level. PET w/ increased uptake in parotids. Social History Social History Type Response Smoking Status Never (less than 100 in lifetime); Tobacco user in household: No entered on: 01/08/20 Sex Female 1Has been off since 2006
--- OUTSIDE RECORDS SUMMARY | 2023-01-04 21:37 | XMS_ITS | Continuity of Care Document ---
Author Name Unknown Organization [facility] Address [address] [place] [address]- Care Team Providers Care Graphic Editor Name Role Phone Checo John Primary Care Physician Encounter [facility] [id number] Date(s): 01/24/22 - 02/23/22 [facility] [address] [place] [address]- [place] Allergies, Adverse Reactions, Alerts Substance Reaction Severity [...] 16:07:00 EST, Aerosol, Route to Pharmacy Electronically, [id number], [facility] #[id number], 168, cm, 08/20/21 15:40:... Start Date: 08/20/21 [...] multigravida 35+(Confirmed) Active Obese class I(Confirmed) Active [facility] Care Management [facility] , Scarlett Walton [phone](Confirmed) Active Posttraumatic stress disorder(Confirmed) Active (Confirmed) Active Urinary incontinence(Confirmed) Active Ventricular ectopy(Confirmed) Active 1Hx suicide attempt Social History Social History Type Response Smoking Status Former smoker, quit more than 30 days ago entered on: 11/11/21 Sex 1Has been off since 2006
--- OUTSIDE RECORDS SUMMARY | 2023-01-04 21:37 | XMS_ITS | Continuity of Care Document ---
Author Name Unknown Organization [facility] [place] Address [address] [place] [address]- Care Team Providers Care Sample Selector Name Role Phone Checo John Primary Care Physician Encounter [facility] Date(s): 01/14/22 - 02/13/22 [facility] [address] [place] [address]- Allergies, Adverse Reactions, Alerts Substance Reaction Severity [...] 16:07:00 EST, Aerosol, Route to Pharmacy Electronically, [id number], [id number], 168, cm, 08/20/21 15:40:... Start Date: 08/20/21 [...] multigravida 35+(Confirmed) Active Obese class I(Confirmed) Active N Care Management [facility] , Scarlett Walton [phone](Confirmed) Active Posttraumatic stress disorder(Confirmed) Active (Confirmed) Active Sarcoid(Confirmed) 2 Active Urinary incontinence(Confirmed) Active Ventricular ectopy(Confirmed) Active 1Hx suicide attempt 2Possible dx sarcoid. Hx recurrent right uveitis. Elevated MELISSA level. PET w/ increased uptake in parotids. Social History Social History Type Response Smoking Status Former smoker, quit more than 30 days ago entered on: 11/11/21 Sex 1Has been off since 2006
--- OUTSIDE RECORDS SUMMARY | 2023-01-04 21:37 | XMS_ITS | Continuity of Care Document ---
Author Name Unknown Organization [facility] Address [address] [place] [address], [address] [place] [address]- Care Team Providers Care Director Of Development And Marketing Name Role Phone Sadaf Dawkins MD Primary Care Physician Encounter [facility] Date(s): 06/05/20 - 07/05/20 [facility] [address] [facility], [address] [place] [address]- [facility] Attending Physician: Ora Brown Admitting Physician: AdmOra landon Referring Physician: AdmtrOra Allergies, Adverse Reactions, Alerts Substance Reaction Severity Status Milk Products Resolved Pork Active Immunizations Given and Recorded Vaccine Date Status Refusal Reason tetanus/diphtheria/pertussis, acel(Tdap) 10/24/13 Given Medications Abilify 10 mg oral tablet 10 mg, 1, tablet, By Mouth, Daily, # 30 tablet, Refills 0, Tot. Refills 0, Maintenance, 05/22/20 14:30:00 EDT, Route to Pharmacy Electronically, [facility] #[id number], 168, cm, 05/22/20 14:15:00 EDT, Height, 83.7, kg, 04/29/20 15:56:00 EDT, Dry... Start Date: 05/22/20 Status: Ordered Actigall 300 mg oral capsule 300 mg, 1, capsule, By Mouth, 3 times a day, # 90 capsule, Refills 1, Tot. Refills 1, Maintenance, 05/29/20 13:47:00 EDT, Route to Pharmacy Electronically, [facility] #[id number], 168, cm, 05/26/20 15:33:00 EDT, Height, 83.58, kg, 05/26/20 15:33:... Start Date: 05/29/20 Status: Ordered albuterol CFC free 90 mcg/inh inhalation aerosol 2, puffs, Inhalation, 4 times a day, PRN, # 25 Gm, Refills 5, Tot. Refills 5, Maintenance, 01/09/2018:29:00 EDT, Aerosol, Route to Pharmacy Electronically, [id number], [facility] #[id number], 168, cm, 01/10/20 15:21:00... Start Date: 01/10/20 Status: Ordered ibuprofen 600 mg oral tablet 600 mg, 1, tablet, By Mouth, 4 times a day, PRN, # 40 tablet, Refills 0, Tot. Refills 0, Maintenance, Pain, 06/10/20 10:28:00 EDT, Route to Pharmacy Electronically, [facility] #[id number], 168, cm, 06/10/20 9:28:00 EDT, Height, 83.58, kg, ... Start Date: 06/10/20 Status: Ordered Plus Iron oral tablet 1 tablet, By Mouth, Daily, # 30 tablet, 11 Refills, Maintenance, 05/22/20 14:31:00 EDT, Tablet, [facility] #[id number], 1 tablet By Mouth Daily, 168, cm, 05/22/20 14:15:00 EDT, Height, 83.7, kg,04/29/20 15:56:00 EDT, Dry Weight Start Date: 05/22/20 Status: Ordered promethazine 12.5 mg rectal suppository 1 supp = 12.5 mg, Rectally, Every 6 hours, PRN for nausea/vomiting, # 40 supp, 1 Refills, Maintenance, 05/29/20 13:45:00 EDT, Suppository, [facility] #[id number], 168, cm, 05/26/20 15:33:00 EDT,Height, 83.58, kg, [...] each, 1 Refills, Maintenance, 05/12/20 16:49:00 EDT, [facility] #[id number], 168, cm, 04/29/20 15:56:00 EDT, Height, 83.7, [...] maternal age) multigravida 35+(Confirmed) Active Care Management [facility] , Nela Byrd [phone](Confirmed) Active Posttraumatic stress disorder(Confirmed) Active (Confirmed) Active [...]
--- OUTSIDE RECORDS SUMMARY | 2023-01-04 21:37 | XMS_ITS | Continuity of Care Document ---
Author Name Unknown Organization [facility] Address [address] [place] [address]- Care Team Providers Care Stagecraft Teacher Name Role Phone Sadaf Dawkins MD Primary Care Physician Encounter [facility] Date(s): 06/17/21 - 07/17/[address] [address] Allergies, Adverse Reactions, Alerts Substance Reaction Severity Status Milk Products Resolved Pork Active Immunizations Given and Recorded Vaccine Date Status Refusal Reason tetanus/diphtheria/pertussis, acel(Tdap) 10/24/13 Given Medications albuterol CFC free 90 mcg/inh inhalation aerosol 2, puffs, Inhalation, 4 times a day, PRN, # 1 each, Refills 11, Tot. Refills 11, Maintenance, 04/14/21 14:17:00 EDT, Aerosol, Route to Pharmacy Electronically, [id number], [facility] #[id number], 168, cm, 04/14/21 14:05:... Start Date: 04/14/21 Stop Date: 04/09/22 Status: Ordered cloNIDine 0.1 mg oral tablet 0.1 mg, 1, tablet, By Mouth, 2 times a day, Refills 0, Maintenance, 04/14/21 14:35:00 EDT, Partial fill upon patient request if the prescription is for a schedule II opioid drug. Start Date: 04/14/21 Status: Ordered divalproex sodium 500 mg oral tablet, extended release 0 Refills, Maintenance, 04/14/21 14:35:00 EDT, Partial fill upon patient request if the prescription is for a schedule II opioid drug. Start Date: 04/14/21 Status: Ordered erythromycin 0.5% ophthalmic ointment 0 Refills, Maintenance, 04/14/21 14:35:00 EDT, Partial fill upon patient request if the prescription is for a schedule II opioid drug. Start Date: 04/14/21 Status: Ordered mirtazapine 7.5 mg oral tablet 0 Refills, Maintenance, 04/14/21 14:35:00 EDT, Partial fill upon patient request if the prescription is for a schedule II opioid drug. Start Date: 04/14/21 Status: Ordered prazosin 1 mg oral capsule Refills 0, Maintenance, 04/14/21 14:35:00 EDT, Partial fill upon patient request if the prescription is for a schedule II opioid drug. Start Date: 04/14/21 Status: Ordered Problem List Condition Effective Dates Status Health Status Inform ant Anxiety(Confirmed) Active Asthma(Confirmed) Active Bipolar disorder (manic depression)(Confirmed) 1 Active Intrahepatic cholestasis of (Confirmed) Active Chronic eczema(Confirmed) Active History of depression(Confirmed) Active History of abnormal cervical Pap smear(Confirmed) Active History of marijuana use(Confirmed) Active Irritable bowel(Confirmed) Active Migraine(Confirmed) Active AMA (advanced maternal age) multigravida 35+(Confirmed) Active Care Management [facility] Taylerman (Confirmed) Active Posttraumatic stress disorder(Confirmed) Active (Confirmed) [...]
--- OUTSIDE RECORDS SUMMARY | 2023-01-04 21:38 | XMS_ITS | Continuity of Care Document ---
Author Name Unknown Organization [facility] [place] Address [address] [place] [address]- Care Team Providers Care Accounts Receivable Associate Name Role Phone Checo John Primary Care Physician [id number] Date(s): 01/26/22 - 02/25/22 [facility] [place] [address] [place], [place] [address] Allergies, Adverse Reactions, Alerts Substance Reaction Severity [...] 16:07:00 EST, Aerosol, Route to Pharmacy Electronically, [id number], [facility][id number], 168, cm, 08/20/21 15:40:... Start Date: 08/20/21 [...] multigravida 35+(Confirmed) Active Obese class I(Confirmed) Active [facility] Care Management [facility] , Scarlett Walton [phone](Confirmed) Active Posttraumatic stress disorder(Confirmed) Active (Confirmed) Active Urinary incontinence(Confirmed) Active Ventricular ectopy(Confirmed) Active 1Hx suicide attempt Social History Social History Type Response Smoking Status Former smoker, quit more than 30 days ago entered on: 11/11/21 Sex 1Has been off since 2006
--- OUTSIDE RECORDS SUMMARY | 2023-01-04 21:38 | XMS_ITS | Continuity of Care Document ---
Author Name Unknown Organization [facility] Address [address] [address]- Care Team Providers Care Electronics Specialist Name Role Phone Sadaf Dawkins MD Primary Care Physician Encounter [facility] Date(s): 05/26/20 - 06/25/20 [facility] [address] [address]- [facility] Allergies, Adverse Reactions, Alerts Substance Reaction Severity Status Milk Products Resolved Pork Active Immunizations Given and Recorded Vaccine Date Status Refusal Reason tetanus/diphtheria/pertussis, acel(Tdap) 10/24/13 Given Medications Abilify 10 mg oral tablet 10 mg, 1, tablet, By Mouth, Daily, # 30 tablet, Refills 0, Tot. Refills 0, Maintenance, 05/22/20 14:30:00 EDT, Route to Pharmacy Electronically, [facility] #[id number], 168, cm, 05/22/20 14:15:00 EDT, Height, 83.7, kg, 04/29/20 15:56:00 EDT, Dry... Start Date: 05/22/20 Status: Ordered Actigall 300 mg oral capsule 300 mg, 1, capsule, By Mouth, 3 times a day, # 90 capsule, Refills 1, Tot. Refills 1, Maintenance, 05/29/20 13:47:00 EDT, Route to Pharmacy Electronically, [facility] #[id number], 168, cm, 05/26/20 15:33:00 EDT, Height, 83.58, kg, 05/26/20 15:33:... Start Date: 05/29/20 Status: Ordered albuterol CFC free 90 mcg/inh inhalation aerosol 2, puffs, Inhalation, 4 times a day, PRN, # 25 Gm, Refills 5, Tot. Refills 5, Maintenance, 01/09/2018:29:00 EDT, Aerosol, Route to Pharmacy Electronically, [id number], [facility] #[id number], 168, cm, 01/10/20 15:21:00... Start Date: 01/10/20 Status: Ordered ibuprofen 600 mg oral tablet 600 mg, 1, tablet, By Mouth, 4 times a day, PRN, # 40 tablet, Refills 0, Tot. Refills 0, Maintenance, Pain, 06/10/20 10:28:00 EDT, Route to Pharmacy Electronically, [facility] #[id number], 168, cm, 06/10/20 9:28:00 EDT, Height, 83.58, kg, ... Start Date: 06/10/20 Status: Ordered Plus Iron oral tablet 1 tablet, By Mouth, Daily, # 30 tablet, 11 Refills, Maintenance, 05/22/20 14:31:00 EDT, Tablet, [facility] #[id number], 1 tablet By Mouth Daily, 168, cm, 05/22/20 14:15:00 EDT, Height, 83.7, kg,04/29/20 15:56:00 EDT, Dry Weight Start Date: 05/22/20 Status: Ordered promethazine 12.5 mg rectal suppository 1 supp = 12.5 mg, Rectally, Every 6 hours, PRN for nausea/vomiting, # 40 supp, 1 Refills, Maintenance, 05/29/20 13:45:00 EDT, Suppository, [facility] #[id number], 168, cm, 05/26/20 15:33:00 EDT,Height, 83.58, kg, [...] each, 1 Refills, Maintenance, 05/12/20 16:49:00 EDT, [facility] #[id number], 168, cm, 04/29/20 15:56:00 EDT, Height, 83.7, [...] maternal age) multigravida 35+(Confirmed) Active Care Management [facility] , Nela Byrd CC [phone](Confirmed) Active Posttraumatic stress disorder(Confirmed) Active (Confirmed) Active Sarcoid(Confirmed) 2 Active Urinary incontinence(Confirmed) Active 1Hx suicide attempt 2Possible dx sarcoid. Hx recurrent right uveitis. Elevated MELISSA level. PET w/ increased uptake in parotids. Social History Social History Type Response Smoking Status Never (less than 100 in lifetime); Tobacco user in household: No entered on: 01/08/20 Sex 1Has been off since 2006
--- OUTSIDE RECORDS SUMMARY | 2023-01-04 21:38 | XMS_ITS | Continuity of Care Document ---
Author Name Unknown Organization [facility] Address [address] [place] [address]- Care Team Providers Care In Home Sales Consultant Name Role Phone Sadaf Dawkins MD Primary Care Physician [place] [facility] [place]/28/[place] - 06/27/[address] [address]- Allergies, Adverse Reactions, Alerts Substance Reaction Severity Status Milk Products Resolved Pork Active Immunizations Given and Recorded Vaccine Date Status Refusal Reason tetanus/diphtheria/pertussis, acel(Tdap) 10/24/13 Given Medications albuterol CFC free 90 mcg/inh inhalation aerosol 2, puffs, Inhalation, 4 times a day, PRN, # 1 each, Refills 11, Tot. Refills 11, Maintenance, 04/14/21 14:17:00 EDT, Aerosol, Route to Pharmacy Electronically, [id number], [facility] #[id number], 168, cm, 04/14/21 14:05:... Start Date: 04/14/21 [...] Active Care Management [facility] Taylerman (Confirmed) Active Posttraumatic stress disorder(Confirmed) Active [...]
--- OUTSIDE RECORDS SUMMARY | 2023-01-04 21:38 | XMS_ITS | Continuity of Care Document ---
Author Name Unknown Organization [facility] Address [address] [address]- Care Team Providers Care Web Applications Developer Name Role Phone Checo John Primary Care Physician [phone] Encounter [facility] [id number] Date(s): 05/05/22 - 06/04/22 [facility] [address] [address]- Attending Physician: Ora Brown Admitting Physician: Ora [...] 16:07:00 EST, Aerosol, Route to Pharmacy Electronically, [id number], [facility] #[id number], 168, cm, 08/20/21 15:40:... Start Date: 08/20/21 [...] multigravida 35+(Confirmed) Active Obese class I(Confirmed) Active [facility] Care Management [facility] , Scarlett Walton [phone](Confirmed) Active Posttraumatic stress disorder(Confirmed) Active (Confirmed) Active Urinary incontinence(Confirmed) Active Ventricular ectopy(Confirmed) Active 1Hx suicide attempt Social History Social History Type Response Smoking Status Former smoker, quit more than 30 days ago entered on: 11/11/21 Sex 1Has been off since 2006 Care Team Personnel Name: Checo John Address: [address] [place] [address] [place], [place] [address]
--- OUTSIDE RECORDS SUMMARY | 2023-01-04 21:38 | XMS_ITS | Continuity of Care Document ---
Author Name Unknown Organization [facility] Address [address] [address]- Care Team Providers Care Quarter Supervisor Name Role Phone Checo John Primary Care Physician Encounter [facility] Date(s): 10/21/22 - 11/20/22 [facility] [address] [address]- [place] Allergies, Adverse Reactions, Alerts Substance Reaction [...] 16:07:00 EST, Aerosol, Route to Pharmacy Electronically, [id number], [facility] #[id number], 168, cm, 08/20/21 15:40:... Start Date: 08/20/21 [...] Refills, Soft Stop, 07/08/22 12:02:00 EDT, Tablet, [facility][id number], Partial fill upon patient request if the [...] Confirmed Active Obese class I Confirmed Active [facility] Care Management [facility] Pooja Hartman [phone] Confirmed Active Posttraumatic stress disorder Confirmed Active Confirmed Active Urinary incontinence Confirmed Active Ventricular ectopy Confirmed Active 1Hx suicide attempt Social History Social History Type Response Smoking Status Former smoker, quit more than 30 days ago entered on: 11/11/21 Sex 1Has been off since 2006 Patient Care team information Care Team Personnel Name: Jerome AUTOBODY TECHNICIAN, Era Alvarez Position: [facility] PCO Associate Professional Member Role: Primary Care Nurse Name: Mally Ham RN Position: [facility] RN Member Role: Primary Care Nurse Name: Checo John Position: [facility] PC[facility] Associate Professional Member Role: PCP Address: Address: [address] [place] [address]- Name: Rossana Avalos RN Position: [facility] SN RN Member Role: Primary Care Nurse Care Team Related Persons Name: PASQUALE REID Address: home [address] [place] [address] Name: NAICETO LUNA Address: home [address] [place] [address] Name: NAIMA LUNA Address: Address: home [address] [place] [address] [place] Name: PT STATES NO ONE, NONE
--- OUTSIDE RECORDS SUMMARY | 2023-01-04 21:38 | XMS_ITS | Continuity of Care Document ---
Author Name Unknown Organization [facility] Address [address] [place] [address]- Care Team Providers Care Substation Operator Conversion Name Role Phone Checo John Primary Care Physician Encounter [facility] NBR [id number] Date(s): 11/19/21 - 12/19/21 [facility] [address] [place] [address] Allergies, Adverse Reactions, Alerts Substance Reaction Severity Status Milk Products Resolved Pork Active Immunizations Given and Recorded Vaccine Date Status Refusal Reason SARS-CoV-2 (COVID-19) mRNA-1273 vaccine 08/28/21 R ecorded SARS-CoV-2 (COVID-19) mRNA-1273 vaccine 07/31/21 R ecorded tetanus/diphtheria/pertussis, acel(Tdap) 10/24/13 Given Medications Abilify 2 mg oral tablet 2 mg, 1, tablet, By Mouth, Daily, total 7mg dose, Refills 0, Maintenance, 08/20/21 16:07:00 EST, Partial fill upon patient request if the prescription is for a schedule II opioid drug. Start Date: 08/20/21 Status: Ordered albuterol CFC free 90 mcg/inh inhalation aerosol 2, puffs, Inhalation, 4 times a day, PRN, # 1 each, Refills 11, Tot. Refills 11, Maintenance, 08/20/21 16:07:00 EST, Aerosol, Route to Pharmacy Electronically, [id number], [facility] #[id number], 168, cm, 08/20/21 15:40:... Start Date: 08/20/21 Stop Date: 08/15/22 Status: Ordered erythromycin 0.5% ophthalmic ointment 0 [...] multigravida 35+(Confirmed) Active Obese class I(Confirmed) Active [facility] Care Management [facility] , Scarlett Anton [phone](Confirmed) Active Posttraumatic stress disorder(Confirmed) Active (Confirmed) Active [...]
--- OUTSIDE RECORDS SUMMARY | 2023-01-04 21:38 | XMS_ITS | Continuity of Care Document ---
Author Name Unknown Organization [facility] Address [address] [place] [address]- Care Team Providers Care Tank Shop Supervisor Name Role Phone Sadaf Dawkins MD Primary Care Physician [phone] [facility] [id number] Date(s): 10/29/20 - 11/05/20 [facility] [address] [place] [address]- Attending Physician: Ishaan Belcher MD Referring Physician: Sadaf Dawkins MD Allergies, Adverse Reactions, Alerts Substance Reaction Severity Status Milk Products Resolved Pork Active Immunizations Given and Recorded Vaccine Date Status Refusal Reason tetanus/diphtheria/pertussis, acel(Tdap) 10/24/13 Given Medications Abilify 10 mg oral tablet 10 mg, 1, tablet, By Mouth, Daily, # 30 tablet, Refills 0, Tot. Refills 0, Maintenance, 05/22/20 14:30:00 EDT, Route to Pharmacy Electronically, [facility] #[id number], 168, cm, 05/22/20 14:15:00 EDT, Height, 83.7, kg, 04/29/20 15:56:00 EDT, Dry... Start Date: 05/22/20 Status: Ordered Actigall 300 mg oral capsule 300 mg, 1, capsule, By Mouth, 3 times a day, # 90 capsule, Refills 1, Tot. Refills 1, Maintenance, 05/29/20 13:47:00 EDT, Route to Pharmacy Electronically, [facility] #[id number], 168, cm, 05/26/20 15:33:00 EDT, Height, 83.58, kg, 05/26/20 15:33:... Start Date: 05/29/20 Status: Ordered albuterol CFC free 90 mcg/inh inhalation aerosol 2, puffs, Inhalation, 4 times a day, PRN, # 25 Gm, Refills 5, Tot. Refills 5, Maintenance, 01/09/2018:29:00 EDT, Aerosol, Route to Pharmacy Electronically, [id number], [facility] #[id number], 168, cm, 01/10/20 15:21:00... Start Date: 01/10/20 Status: Ordered Diflucan 150 mg oral tablet 1 tablet = 150 mg, By Mouth, Once, # 1 tablet, 0 Refills, Soft Stop, 11/03/20 9:59:00 EST, Tablet, [facility] #[id number], Partial fill upon patient request if the prescription is for a scheduleII opioid drug., 168, cm, 10/29/20 9:46:00 EST, Hei... Start Date: 11/03/20 Status: Ordered ibuprofen 600 mg oral tablet 600 mg, 1, tablet, By Mouth, 4 times a day, PRN, # 40 tablet, Refills 0, Tot. Refills 0, Maintenance, Pain, 06/10/20 10:28:00 EDT, Route to Pharmacy Electronically, [facility] #[id number], 168, cm, 06/10/20 9:28:00 EDT, Height, 83.58, kg, ... Start Date: 06/10/20 Status: Ordered Plus Iron oral tablet 1 tablet, By Mouth, Daily, # 30 tablet, 11 Refills, Maintenance, 05/22/20 14:31:00 EDT, Tablet, [facility] #[id number], 1 tablet By Mouth Daily, 168, cm, 05/22/20 14:15:00 EDT, Height, 83.7, kg,04/29/20 15:56:00 EDT, Dry Weight Start Date: 05/22/20 Status: Ordered promethazine 12.5 mg rectal suppository 1 supp = 12.5 mg, Rectally, Every 6 hours, PRN for nausea/vomiting, # 40 supp, 1 Refills, Maintenance, 05/29/20 13:45:00 EDT, Suppository, [facility] #[id number], 168, cm, 05/26/20 15:33:00 EDT,Height, 83.58, kg, [...] each, 1 Refills, Maintenance, 05/12/20 16:49:00 EDT, [facility] #[id number], 168, cm, 04/29/20 15:56:00 EDT, Height, 83.7, [...] maternal age) multigravida 35+(Confirmed) Active Care Management [facility] Nela CC [phone](Confirmed) Active Posttraumatic stress disorder(Confirmed) Active (Confirmed) Active Sarcoid(Confirmed) 2 Active Urinary incontinence(Confirmed) Active 1Hx suicide attempt 2Possible dx sarcoid. Hx recurrent right uveitis. Elevated MELISSA level. PET w/ increased uptake in parotids. Vital Signs Most recent to oldest [Reference Range]: 1 Height 168 cm (10/29/20 9:46 AM) Oxygen Saturation [94-100 %] 100 % (10/29/20 9:46 AM) Pulse Rate [55-90 bpm] 87 bpm (10/29/20 9:46 AM) Blood Pressure [90-138/55-84 mm Hg] 129/ 90mm Hg (10/29/20 9:46 AM) Respiratory Rate [16-30 br/min] 18 br/mi n (10/29/20 9:46 AM) Temperature [96.8-100.4 DegF] 97.9 DegF (10/29/20 9:46 AM) Mode of Delivery (Oxygen) Room air (10/29/20 9:46 AM) Blood pressure sites Arm, right (10/29/20 9:46 AM) Temperature Route Temporal (10/29/20 9:46 AM) Social History Social History Type Response Smoking Status Former smoker; Type: Cigarettes; Tobacco use times per day: 1 pack/week; 1 entered on: 10/24/13 Sex 1Has been off since 2006
--- OUTSIDE RECORDS SUMMARY | 2023-01-04 21:38 | XMS_ITS | Continuity of Care Document ---
Author Name Unknown Organization [facility] Address [address] [place] [address]- Care Team Providers Care Second Hand Name Role Phone Sadaf Dawkins MD Primary Care Physician Encounter [facility] Date(s): 10/21/19 - 10/22/[address] [address] [facility] Discharge Disposition: A-D/C Walkout Attending Physician: Not on Staff, Attending MD Admitting Physician: Not on Staff, Admitting MD Referring Physician: Not on Staff, Referring MD Allergies, Adverse Reactions, Alerts Substance Reaction Severity Status Milk Products Active Pork Active Immunizations Given and Recorded Vaccine Date Status Refusal Reason tetanus/diphtheria/pertussis, acel(Tdap) 10/24/13 Given Medications albuterol CFC free 90 mcg/inh inhalation aerosol 2, puffs, Inhalation, 4 times a day, PRN, # 25 Gm, Refills 5, Tot. Refills 5, Maintenance, 05/02/1916:45:21 EDT, Aerosol, Route to Pharmacy Electronically, [id number], [facility] #[id number] Start Date: 05/02/19 Status: Ordered Banophen 50 mg oral capsule 2 capsule, By Mouth, Daily at bedtime, PRN NEEDED FOR INSOMNIA, # 60 capsule, 0 Refills, Soft Stop, 09/30/19 7:45:00 EST, [facility] #[id number], 168, cm, 08/20/19 13:51:00 EST, Height, 97.9,kg, 05/21/19 16:53:00 EDT, Dry Weight Start Date: 09/30/19 Status: Ordered cloNIDine 0.1 mg oral tablet 0.1 mg, 1, tablet, By Mouth, 3 times a day, # 90 tablet, Refills 4, Tot. Refills 4, Maintenance, 05/09/19 12:24:02 EDT, Route to Pharmacy Electronically, [id number], [facility] #[id number] Start Date: 05/09/19 Stop Date: 10/06/19 Status: [...] 0 Refills, Soft Stop, 10/05/19 13:18:00 EST, Tablet,[facility] #[id number], 168, cm, 10/03/19 10:33:00 EST, Height, 93.3, [...] Maintenance, 07/16/16 22:20:46, Route to Pharmacy Electronically, [id number], [facility] [id number] Start Date: 07/16/16 Status: Ordered prazosin 5 mg oral capsule 5 mg, 1, capsule, By Mouth, Daily at bedtime, # 30 capsule, Refills 4, Tot. Refills 4, Maintenance,05/09/19 12:25:10 EDT, Route to Pharmacy Electronically, [id number], [facility] #[id number] Start Date: 05/09/19 Stop Date: 10/06/19 Status: [...] History of marijuana use(Confirmed) Active Care Management [facility] , Nela MarkhamLivier CC [phone](Confirmed) Active Posttraumatic stress disorder(Confirmed) Active Sarcoid(Confirmed) 2 Active Urinary incontinence(Confirmed) Active 1Hx suicide attempt 2Possible dx sarcoid. Hx recurrent right uveitis. Elevated MELISSA level. PET w/ increased uptake in parotids. Vital Signs Most recent to oldest [Reference Range]: 1 Weight 91 kg (10/21/19 9:24 PM) Oxygen Saturation [94-100 %] 100 % (10/21/19 9:24 PM) Pulse Rate [55-90 bpm] 84 bpm (10/21/19 9:24 PM) Blood Pressure [90-138/55-84 mm Hg] 134/ 73mm Hg (10/21/19 9:24 PM) Respiratory Rate [16-30 br/min] 16 br/mi n (10/21/19 9:24 PM) Temperature [96.8-100.4 DegF] 98.1 DegF (10/21/19 9:24 PM) Mode of Delivery (Oxygen) Room air (10/21/19 9:24 PM) Blood pressure sites Arm, right (10/21/19 9:24 PM) Temperature Route Oral (10/21/19 9:24 PM) Dry Weight 91 kg (10/21/19 9:24 PM) Weight Obtained Via Standing scale (10/21/19 9:24 PM) Dry Weight Obtained Via Standing scale (10/21/19 9:24 PM) Social History Social History Type Response Smoking Status Never smoker entered on: 10/26/14 Sex 1Has been off since 2006
--- OUTSIDE RECORDS SUMMARY | 2023-01-04 21:38 | XMS_ITS | Continuity of Care Document ---
Author Name Unknown Organization [facility] Address [address] [place] [address]- Care Team Providers Care Manager Environmental Name Role Phone Checo John Primary Care Physician [phone] Encounter [facility] NBR [id number] Date(s): 11/22/21 - 12/22/21 [facility] [address] [place], [place] [address] Allergies, Adverse Reactions, Alerts Substance Reaction [...] 16:07:00 EST, Aerosol, Route to Pharmacy Electronically, [id number], [facility] #[id number], 168, cm, 08/20/21 15:40:... Start Date: 08/20/21 [...] multigravida 35+(Confirmed) Active Obese class I(Confirmed) Active [facility] Care Management [facility] , Scarlett Anton [phone](Confirmed) Active Posttraumatic stress disorder(Confirmed) Active (Confirmed) Active [...]
--- OUTSIDE RECORDS SUMMARY | 2023-01-04 21:38 | XMS_ITS | Continuity of Care Document ---
Author Name Unknown Organization [facility] Address [address] [place] [address]- Care Team Providers Care Cardiology Teacher Name Role Phone Sadaf Dawkins MD Primary Care Physician [phone] Encounter [facility] Date(s): 05/06/20 - 06/05/[address] [address] [place] Allergies, Adverse Reactions, Alerts Substance Reaction Severity Status Milk Products Resolved Pork Active Immunizations Given and Recorded Vaccine Date Status Refusal Reason tetanus/diphtheria/pertussis, acel(Tdap) 10/24/13 Given Medications Abilify 10 mg oral tablet 10 mg, 1, tablet, By Mouth, Daily, # 30 tablet, Refills 0, Tot. Refills 0, Maintenance, 05/22/20 14:30:00 EDT, Route to Pharmacy Electronically, [facility] #[id number], 168, cm, 05/22/20 14:15:00 EDT, Height, 83.7, kg, 04/29/20 15:56:00 EDT, Dry... Start Date: 05/22/20 Status: Ordered Actigall 300 mg oral capsule 300 mg, 1, capsule, By Mouth, 3 times a day, # 90 capsule, Refills 1, Tot. Refills 1, Maintenance, 05/29/20 13:47:00 EDT, Route to Pharmacy Electronically, [facility] #[id number], 168, cm, 05/26/20 15:33:00 EDT, Height, 83.58, kg, 05/26/20 15:33:... Start Date: 05/29/20 Status: Ordered albuterol CFC free 90 mcg/inh inhalation aerosol 2, puffs, Inhalation, 4 times a day, PRN, # 25 Gm, Refills 5, Tot. Refills 5, Maintenance, 01/09/2018:29:00 EDT, Aerosol, Route to Pharmacy Electronically, [id number], [facility] #[id number], 168, cm, 01/10/20 15:21:00... Start Date: 01/10/20 Status: Ordered Plus Iron oral tablet 1 tablet, By Mouth, Daily, # 30 tablet, 11 Refills, Maintenance, 05/22/20 14:31:00 EDT, Tablet, [facility] #[id number], 1 tablet By Mouth Daily, 168, cm, 05/22/20 14:15:00 EDT, Height, 83.7, kg,04/29/20 15:56:00 EDT, Dry Weight Start Date: 05/22/20 Status: Ordered promethazine 12.5 mg rectal suppository 1 supp = 12.5 mg, Rectally, Every 6 hours, PRN for nausea/vomiting, # 40 supp, 1 Refills, Maintenance, 05/29/20 13:45:00 EDT, Suppository, [facility] #[id number], 168, cm, 05/26/20 15:33:00 EDT,Height, 83.58, kg, 05/26/20 15:33:00 EDT, Dry Weight Start Date: 05/29/20 Status: Ordered Zofran 4 mg oral tablet See Instructions, 1 tablet By Mouth Daily, # 20 each, 1 Refills, Maintenance, 05/12/20 16:49:00 EDT, [facility] #[id number], 168, cm, 04/29/20 15:56:00 EDT, Height, 83.7, [...] maternal age) multigravida 35+(Confirmed) Active Care Management [facility] , Nela Byrd [facility] [phone](Confirmed) Active Posttraumatic stress disorder(Confirmed) Active (Confirmed) Active [...]
--- OUTSIDE RECORDS SUMMARY | 2023-01-04 21:38 | XMS_ITS | Continuity of Care Document ---
Author Name Unknown Organization [facility] Address [address] [address]- Care Team Providers Care Industrial Diamond Polisher Name Role Phone Sadaf Dawkins MD Primary Care Physician [facility] [id number] Date(s): 04/23/21 - 05/30/21 [facility] [address] [address]- Attending Physician: Sadaf Dawkins MD Admitting Physician: Sadaf Dawkins MD Referring Physician: Sadaf Dawkins MD Allergies, [...] 14:17:00 EDT, Aerosol, Route to Pharmacy Electronically, [id number], [facility] #[id number], 168, cm, 04/14/21 14:05:... Start Date: 04/14/21 [...] maternal age) multigravida 35+(Confirmed) Active Care Management [facility] (Confirmed) Active Posttraumatic stress disorder(Confirmed) [...]
--- OUTSIDE RECORDS SUMMARY | 2023-01-04 21:38 | XMS_ITS | Continuity of Care Document ---
Author Name Unknown Organization [facility] Address [address] [place] [address]- Care Team Providers Care Molded Candles Wicker Name Role Phone Checo John Primary Care Physician Encounter [facility] R [id number] Date(s): 01/20/22 - 01/27/22 [facility] [address] [place] [address]- Attending Physician: Andry Herrera DO Referring Physician: Checo John Allergies, Adverse Reactions, [...] 16:07:00 EST, Aerosol, Route to Pharmacy Electronically, [id number], [facility] #[id number], 168, cm, 08/20/21 15:40:... Start Date: 08/20/21 Stop Date: 08/15/22 Status: Ordered Diflucan 150 mg oral tablet 1 tablet = 150 mg, By Mouth, Once, # 2 tablet, 0 Refills, Soft Stop, 01/20/22 16:56:00 EDT, Tablet,[facility] #[id number], Partial fill upon patient request if the prescription is for a schedule II opioid drug., 168, cm, 01/20/22 16:13:00 EDT, H... Start Date: 01/20/22 Status: Ordered erythromycin 0.5% ophthalmic ointment 0 [...] multigravida 35+(Confirmed) Active Obese class I(Confirmed) Active [facility] Care Management [facility] , Scarlett Walton [phone](Confirmed) Active Posttraumatic stress disorder(Confirmed) Active (Confirmed) Active Sarcoid(Confirmed) 2 Active Urinary incontinence(Confirmed) Active Ventricular ectopy(Confirmed) Active 1Hx suicide attempt 2Possible dx sarcoid. Hx recurrent right uveitis. Elevated MELISSA level. PET w/ increased uptake in parotids. Vital Signs Most recent to oldest [Reference Range]: 1 Height 168 cm (01/20/22 4:13 PM) Oxygen Saturation [94-100 %] 100 % (01/20/22 4:13 PM) Pulse Rate [55-90 bpm] 93 bpm *H* (01/20/22 4:13 PM) Blood Pressure [90-138/55-84 mm Hg] 133/ 88mm Hg (01/20/22 4:13 PM) Temperature [96.8-100.4 DegF] 97.6 DegF (01/20/22 4:13 PM) Mode of Delivery (Oxygen) Room air (01/20/22 4:13 PM) Blood pressure sites Arm, right (01/20/22 4:13 PM) Temperature Route Temporal (01/20/22 4:13 PM) Social History Social History Type Response Smoking Status Former smoker, quit more than 30 days ago entered on: 11/11/21 Sex 1Has been off since 2006
--- OUTSIDE RECORDS SUMMARY | 2023-01-04 21:38 | XMS_ITS | Continuity of Care Document ---
Author Name Unknown Organization [facility] Address [address] [place] [address]- Care Team Providers Care Painter And Grader Cork Name Role Phone Checo John Primary Care Physician Encounter [facility] Date(s): 06/27/22 - 07/27/22 [facility] [address] [place], [place] [address] Attending Physician: Andry Herrera DO Allergies, Adverse Reactions, Alerts Substance Reaction Severity [...] 16:07:00 EST, Aerosol, Route to Pharmacy Electronically, [id number], [facility] #[id number], 613, cm, 08/20/21 15:40:... Start Date: 08/20/21 Stop [...] Refills, Soft Stop, 07/08/22 12:02:00 EDT, Tablet, [facility] #[id number], Partial fill upon patient request if the [...] Confirmed Active Obese class I Confirmed Active [facility] Care Management [facility], Scarlett Anton [phone] Confirmed Active Posttraumatic stress disorder Confirmed Active Confirmed Active Urinary incontinence Confirmed Active Ventricular ectopy Confirmed Active 1Hx suicide attempt Social History Social History Type Response Smoking Status Former smoker, quit more than 30 days ago entered on: 11/11/21 Sex 1Has been off since 2006 Patient Care team information Personnel Name: Checo John Address: Address: [address] [place] [address] Primary [facility] [place] [address]
--- OUTSIDE RECORDS SUMMARY | 2023-01-04 21:38 | XMS_ITS | Continuity of Care Document ---
Author Name Unknown Organization [facility] Address [address] [place] [address]- Care Team Providers Care Boiler Attendant Name Role Phone Sadaf Dawkins MD Primary Care Physician Encounter [facility] Date(s): 12/12/19 - 12/22/[address] [address]- [facility] Attending Physician: Ora Brown Admitting Physician: Ora [...] 05/02/1916:45:21 EDT, Aerosol, Route to Pharmacy Electronically, [id number], [facility] #[id number] Start Date: 05/02/19 Status: Ordered Banophen 50 mg oral capsule 2 capsule, By Mouth, Daily at bedtime, PRN NEEDED FOR INSOMNIA, # 60 capsule, 0 Refills, Soft Stop, 09/30/19 7:45:00 EST, [facility] #[id number], 168, cm, 08/20/19 13:51:00 EST, Height, 97.9,kg, 05/21/19 16:53:00 EDT, Dry Weight Start Date: 09/30/19 Status: Ordered cloNIDine 0.1 mg oral tablet 0.1 mg, 1, tablet, By Mouth, 3 times a day, # 90 tablet, Refills 4, Tot. Refills 4, Maintenance, 05/09/19 12:24:02 EDT, Route to Pharmacy Electronically, [id number], [facility] #[id number] Start Date: 05/09/19 Stop Date: 10/06/19 Status: Ordered Depo-Provera Contraceptive 150 mg/mL intramuscular suspension 1 mL = 150 mg, Intramuscular, Every 3 months, # 1 mL, 0 Refills, Maintenance, 08/20/19 14:19:06 EST, Suspension Start Date: 08/20/19 Status: Ordered Diflucan 150 mg oral tablet 1 tablet = 150 mg, By Mouth, Once, # 1 tablet, 0 Refills, Soft Stop, 10/05/19 13:18:00 EST, Tablet,[facility] #[id number], 168, cm, 10/03/19 10:33:00 EST, Height, 93.3, [...] Maintenance, 07/16/16 22:20:46, Route to Pharmacy Electronically, [id number], [facility] [address]1978 Start Date: 07/16/16 Status: Ordered prazosin 5 mg oral capsule 5 mg, 1, capsule, By Mouth, Daily at bedtime, # 30 capsule, Refills 4, Tot. Refills 4, Maintenance,05/09/19 12:25:10 EDT, Route to Pharmacy Electronically, [id number], [facility] #[id number] Start Date: 05/09/19 Stop Date: 10/06/19 Status: [...] History of marijuana use(Confirmed) Active Care Management [facility] , Nela MarkhamLivier CC [phone](Confirmed) Active Posttraumatic stress disorder(Confirmed) Active Sarcoid(Confirmed) 2 Active Urinary incontinence(Confirmed) Active 1Hx suicide attempt 2Possible dx sarcoid. Hx recurrent right uveitis. Elevated MELISSA level. PET w/ increased uptake in parotids. Social History Social History Type Response Smoking Status Never smoker entered on: 10/26/14 Sex 1Has been off since 2006
--- OUTSIDE RECORDS SUMMARY | 2023-01-04 21:38 | XMS_ITS | Continuity of Care Document ---
Author Name Unknown Organization [facility] Address [address] [address]- Care Team Providers Care Seconds Handler Name Role Phone Sadaf Dawkins MD Primary Care Physician Encounter [facility] ACCT R [id number] Date(s): 10/30/20 - 12/02/20 [facility] [address] [address]- Attending Physician: Not on Staff, Attending MD Referring Physician: Montrell WOLF, Lizy Cunningham Allergies, Adverse Reactions, Alerts Substance Reaction Severity Status Milk Products Resolved Pork Active Immunizations Given and Recorded Vaccine Date Status Refusal Reason tetanus/diphtheria/pertussis, acel(Tdap) 10/24/13 Given Medications Abilify 10 mg oral tablet 10 mg, 1, tablet, By Mouth, Daily, # 30 tablet, Refills 0, Tot. Refills 0, Maintenance, 05/22/20 14:30:00 EDT, Route to Pharmacy Electronically, [facility] #[id number], 168, cm, 05/22/20 14:15:00 EDT, Height, 83.7, kg, 04/29/20 15:56:00 EDT, Dry... Start Date: 05/22/20 Status: Ordered Actigall 300 mg oral capsule 300 mg, 1, capsule, By Mouth, 3 times a day, # 90 capsule, Refills 1, Tot. Refills 1, Maintenance, 05/29/20 13:47:00 EDT, Route to Pharmacy Electronically, [facility] #[id number], 168, cm, 05/26/20 15:33:00 EDT, Height, 83.58, kg, 05/26/20 15:33:... Start Date: 05/29/20 Status: Ordered albuterol CFC free 90 mcg/inh inhalation aerosol 2, puffs, Inhalation, 4 times a day, PRN, # 25 Gm, Refills 5, Tot. Refills 5, Maintenance, 01/09/2018:29:00 EDT, Aerosol, Route to Pharmacy Electronically, [id number], [facility] #[id number], 168, cm, 01/10/20 15:21:00... Start Date: 01/10/20 Status: Ordered Diflucan 150 mg oral tablet 1 tablet = 150 mg, By Mouth, Once, # 1 tablet, 0 Refills, Soft Stop, 11/11/20 13:24:00 EST, Tablet,[facility] #[id number], Partial fill upon patient request if the prescription is for a schedule II opioid drug., 168, cm, 10/29/20 9:46:00 EST, He... Start Date: 11/11/20 Status: Ordered ibuprofen 600 mg oral tablet 600 mg, 1, tablet, By Mouth, 4 times a day, PRN, # 40 tablet, Refills 0, Tot. Refills 0, Maintenance, Pain, 06/10/20 10:28:00 EDT, Route to Pharmacy Electronically, [facility] #[id number], 168, cm, 06/10/20 9:28:00 EDT, Height, 83.58, kg, ... Start Date: 06/10/20 Status: Ordered Plus Iron oral tablet 1 tablet, By Mouth, Daily, # 30 tablet, 11 Refills, Maintenance, 05/22/20 14:31:00 EDT, Tablet, [facility] #[id number], 1 tablet By Mouth Daily, 168, cm, 05/22/20 14:15:00 EDT, Height, 83.7, kg,04/29/20 15:56:00 EDT, Dry Weight Start Date: 05/22/20 Status: Ordered promethazine 12.5 mg rectal suppository 1 supp = 12.5 mg, Rectally, Every 6 hours, PRN for nausea/vomiting, # 40 supp, 1 Refills, Maintenance, 05/29/20 13:45:00 EDT, Suppository, [facility] #00821, 168, cm, 05/26/20 15:33:00 EDT,Height, 83.58, kg, [...] each, 1 Refills, Maintenance, 05/12/20 16:49:00 EDT, [facility] #[id number], 168, cm, 04/29/20 15:56:00 EDT, Height, 83.7, [...] maternal age) multigravida 35+(Confirmed) Active Care Management [facility] [phone](Confirmed) Active Posttraumatic stress disorder(Confirmed) Active (Confirmed) Active [...]
--- OUTSIDE RECORDS SUMMARY | 2023-01-04 21:38 | XMS_ITS | Continuity of Care Document ---
Author Name Unknown Organization [facility] Address [address] [place] [address]- Care Team Providers Care Hazardous Substances Scientist Name Role Phone Checo John Primary Care Physician Encounter [facility] Date(s): 05/13/22 - 06/12/22 [facility] [place] [address] [place], [place] [address] Allergies, Adverse Reactions, Alerts Substance Reaction [...] 16:07:00 EST, Aerosol, Route to Pharmacy Electronically, [id number], [facility] #[id number], 168, cm, 08/20/21 15:40:... Start Date: 08/20/21 [...] 35+(Confirmed) Active Obese class I(Confirmed) Active [facility] Care Management [facility] , Scarlett Walton [phone](Confirmed) Active Posttraumatic stress disorder(Confirmed) Active (Confirmed) Active Urinary incontinence(Confirmed) Active Ventricular ectopy(Confirmed) Active 1Hx suicide attempt Social History Social History Type Response Smoking Status Former smoker, quit more than 30 days ago entered on: 11/11/21 Sex 1Has been off since 2006 Care Team Personnel Name: Checo John Address: [address] [place] [address]
--- OUTSIDE RECORDS SUMMARY | 2023-01-04 21:38 | XMS_ITS | Continuity of Care Document ---
Author Name Unknown Organization [facility] ter Address [address] [place] [address]- Care Team Providers Care Swatch Cutter Name Role Phone Checo John Primary Care Physician [place] [facility] [place]/27/[place] - 02/09/[address] [address] Attending Physician: Mohit Maldonado MD Admitting Physician: Mohit Maldonado MD Referring Physician: Mohit Maldonado MD Allergies, Adverse Reactions, Alerts Substance Reaction [...] 16:07:00 EST, Aerosol, Route to Pharmacy Electronically, [id number], [facility] #[id number], 777, cm, 08/20/21 15:40:... Start Date: 08/20/21 Stop Date: 08/15/22 Status: Ordered Diflucan 150 mg oral tablet 1 tablet = 150 mg, By Mouth, Once, # 2 tablet, 0 Refills, Soft Stop, 01/20/22 16:56:00 EDT, Tablet,[facility] #[id number], Partial fill upon patient request if the [...] multigravida 35+(Confirmed) Active Obese class I(Confirmed) Active [facility] Care Management [facility] , Scarlett Anton [phone](Confirmed) Active Posttraumatic stress disorder(Confirmed) Active (Confirmed) Active [...]
--- OUTSIDE RECORDS SUMMARY | 2023-01-04 21:38 | XMS_ITS | Continuity of Care Document ---
Author Name Unknown Organization [facility] Address [address] [place] [address]- Care Team Providers Care Radio Interference Investigator Name Role Phone Sadaf Dawkins MD Primary Care Physician [place] [facility] [place] 11/11/20 - 12/11/20 [facility] [address] [place] [address]- Allergies, Adverse Reactions, Alerts Substance Reaction Severity Status Milk Products Resolved Pork Active Immunizations Given and Recorded Vaccine Date Status Refusal Reason tetanus/diphtheria/pertussis, acel(Tdap) 10/24/13 Given Medications Abilify 10 mg oral tablet 10 mg, 1, tablet, By Mouth, Daily, # 30 tablet, Refills 0, Tot. Refills 0, Maintenance, 05/22/20 14:30:00 EDT, Route to Pharmacy Electronically, [facility] #[id number], 168, cm, 05/22/20 14:15:00 EDT, Height, 83.7, kg, 04/29/20 15:56:00 EDT, Dry... Start Date: 05/22/20 Status: Ordered Actigall 300 mg oral capsule 300 mg, 1, capsule, By Mouth, 3 times a day, # 90 capsule, Refills 1, Tot. Refills 1, Maintenance, 05/29/20 13:47:00 EDT, Route to Pharmacy Electronically, [facility] #[id number], 168, cm, 05/26/20 15:33:00 EDT, Height, 83.58, kg, 05/26/20 15:33:... Start Date: 05/29/20 Status: Ordered albuterol CFC free 90 mcg/inh inhalation aerosol 2, puffs, Inhalation, 4 times a day, PRN, # 25 Gm, Refills 5, Tot. Refills 5, Maintenance, 01/09/2018:29:00 EDT, Aerosol, Route to Pharmacy Electronically, [id number], [facility] #40038, 168, cm, 01/10/20 15:21:00... Start Date: 01/10/20 Status: Ordered Diflucan 150 mg oral tablet 1 tablet = 150 mg, By Mouth, Once, # 1 tablet, 0 Refills, Soft Stop, 11/11/20 13:24:00 EST, Tablet,[facility] #[id number], Partial fill upon patient request if the prescription is for a schedule II opioid drug., 168, cm, 10/29/20 9:46:00 EST, He... Start Date: 11/11/20 Status: Ordered ibuprofen 600 mg oral tablet 600 mg, 1, tablet, By Mouth, 4 times a day, PRN, # 40 tablet, Refills 0, Tot. Refills 0, Maintenance, Pain, 06/10/20 10:28:00 EDT, Route to Pharmacy Electronically, [facility] #[id number], 168, cm, 06/10/20 9:28:00 EDT, Height, 83.58, kg, ... Start Date: 06/10/20 Status: Ordered Plus Iron oral tablet 1 tablet, By Mouth, Daily, # 30 tablet, 11 Refills, Maintenance, 05/22/20 14:31:00 EDT, Tablet, [facility] #[id number], 1 tablet By Mouth Daily, 168, cm, 05/22/20 14:15:00 EDT, Height, 83.7, kg,04/29/20 15:56:00 EDT, Dry Weight Start Date: 05/22/20 Status: Ordered promethazine 12.5 mg rectal suppository 1 supp = 12.5 mg, Rectally, Every 6 hours, PRN for nausea/vomiting, # 40 supp, 1 Refills, Maintenance, 05/29/20 13:45:00 EDT, Suppository, [facility] #55397, 168, cm, 05/26/20 15:33:00 EDT,Height, 83.58, kg, [...] each, 1 Refills, Maintenance, 05/12/20 16:49:00 EDT, [facility] #31716, 168, cm, 04/29/20 15:56:00 EDT, Height, 83.7, [...] age) multigravida 35+(Confirmed) Active Care Management [facility] [phone](Confirmed) Active Posttraumatic stress disorder(Confirmed) Active (Confirmed) Active [...]
--- OUTSIDE RECORDS SUMMARY | 2023-01-04 21:38 | XMS_ITS | Continuity of Care Document ---
Author Name Unknown Organization [facility] Address [address] [address]- Care Team Providers Care Adult Secondary Education Instructor Name Role Phone Checo John Primary Care Physician [phone] [place] [facility] [place] 06/03/22 [facility] [address] [place] [address] Attending Physician: Ora Brown Admitting Physician: Admtr, Ora Referring Physician: Admtr, Ar8 Allergies, Adverse Reactions, [...] 16:07:00 EST, Aerosol, Route to Pharmacy Electronically, [id number], [facility] #[id number], 168, cm, 08/20/21 15:40:... Start Date: 08/20/21 [...] Active Obese class I(Confirmed) Active [facility] Care Management [facility] , Scarlett Walton [phone](Confirmed) Active Posttraumatic stress disorder(Confirmed) Active (Confirmed) Active Urinary incontinence(Confirmed) Active Ventricular ectopy(Confirmed) Active 1Hx suicide attempt Social History Social History Type Response Smoking Status Former smoker, quit more than 30 days ago entered on: 11/11/21 Sex 1Has been off since 2006 Care Team Personnel Name: Checo John Address: [address] [place] [address] [place]
--- OUTSIDE RECORDS SUMMARY | 2023-01-04 21:38 | XMS_ITS | Continuity of Care Document ---
Author Name Unknown Organization [facility] Address [address] [place], [place] [address]- Care Team Providers Care Tube Teller Name Role Phone Checo John Primary Care Physician En[facility] [id number] Date(s): 11/11/21 - 12/11/21 [facility] [address] [place], [place] [address]- Attending Physician: Ora Brown Admitting Physician: AdmtrOra Referring Physician: Admtr, Ora Allergies, Adverse Reactions, Alerts Substance Reaction Severity [...] 16:07:00 EST, Aerosol, Route to Pharmacy Electronically, [id number], [facility] #[id number], 689, cm, 08/20/21 15:40:... Start Date: 08/20/21 Stop [...] multigravida 35+(Confirmed) Active Obese class I(Confirmed) Active [facility] Care Management [facility] , Scarlett Anton [phone](Confirmed) Active Posttraumatic stress disorder(Confirmed) Active (Confirmed) Active [...]
--- OUTSIDE RECORDS SUMMARY | 2023-01-04 21:38 | XMS_ITS | Continuity of Care Document ---
Author Name Unknown Organization [facility] Address [address] [place] [address]- Care Team Providers Care Sql Programmer Name Role Phone Sadaf Dawkins MD Primary Care Physician [place] [facility] [place] Date(s): 08/20/21 - 09/19/[address] [address]- Attending Physician: Admtr, Ora Allergies, Adverse Reactions, Alerts Substance Reaction Severity Status Milk Products Resolved Pork Active Immunizations Given and Recorded Vaccine Date Status Refusal Reason tetanus/diphtheria/pertussis, acel(Tdap) 10/24/13 Given Medications Abilify 2 [...] 16:07:00 EST, Aerosol, Route to Pharmacy Electronically, [id number], [facility] #[id number], 128, cm, 08/20/21 15:40:... Start Date: 08/20/21 Stop [...] 35+(Confirmed) Active Obese class I(Confirmed) Active [facility] Care Management [facility] , Scarlett Anton [phone](Confirmed) Active Posttraumatic stress disorder(Confirmed) Active (Confirmed) Active [...]
--- OUTSIDE RECORDS SUMMARY | 2023-01-04 21:38 | XMS_ITS | Continuity of Care Document ---
Author Name Unknown Organization [facility] [employer] [facility] Address [address] [place] [address], [address] [place] [address]- Care Team Providers Care Commercial Loan Underwriter Name Role Phone Juancho WOLF, Sadaf Primary Care Physician [place] [facility] [id number] Date(s): 05/19/20 - 05/26/20 [facility] [address] [facility] [place] [address]- [facility] Attending Physician: Lizy Stock MD Referring Physician: Stephanie Jacobs CNM Allergies, Adverse Reactions, Alerts Substance Reaction Severity Status Milk Products Resolved Pork Active Immunizations Given and Recorded Vaccine Date Status Refusal Reason tetanus/diphtheria/pertussis, acel(Tdap) 10/24/13 Given Medications Abilify 10 mg oral tablet 10 mg, 1, tablet, By Mouth, Daily, # 30 tablet, Refills 0, Tot. Refills 0, Maintenance, 05/22/20 14:30:00 EDT, Route to Pharmacy Electronically, [facility] #[id number], 168, cm, 05/22/20 14:15:00 EDT, Height, 83.7, kg, 04/29/20 15:56:00 EDT, Dry... Start Date: 05/22/20 Status: Ordered Actigall 300 mg oral capsule 300 mg, 1, capsule, By Mouth, 3 times a day, # 60 capsule, Refills 1, Tot. Refills 1, Maintenance, 04/29/20 16:07:00 EDT, Route to Pharmacy Electronically, [facility] #[id number], 168, cm, 04/29/20 15:56:00 EDT, Height, 83.7, kg, 04/29/20 15:56:0... Start Date: 04/29/20 Status: Ordered albuterol CFC free 90 mcg/inh inhalation aerosol 2, puffs, Inhalation, 4 times a day, PRN, # 25 Gm, Refills 5, Tot. Refills 5, Maintenance, 01/09/2018:29:00 EDT, Aerosol, Route to Pharmacy Electronically, [id number], [facility] #[id number], 168, cm, 01/10/20 15:21:00... Start Date: 01/10/20 Status: Ordered Plus Iron oral tablet 1 tablet, By Mouth, Daily, # 30 tablet, 11 Refills, Maintenance, 05/22/20 14:31:00 EDT, Tablet, [facility] #59525, 1 tablet By Mouth Daily, 168, cm, 05/22/20 14:15:00 EDT, Height, 83.7, kg,04/29/20 15:56:00 EDT, Dry Weight Start Date: 05/22/20 Status: Ordered promethazine 12.5 mg rectal suppository 1 supp = 12.5 mg, Rectally, Every 6 hours, PRN for nausea/vomiting, # 40 supp, 0 Refills, Maintenance, 03/25/20 14:05:00 EDT, Suppository, [facility] #[id number], 168, cm, 03/25/20 13:36:00 EDT,Height, 84, kg, 01/23/20 0:53:00 EDT, Dry Weight Start Date: 03/25/20 Status: Ordered Zofran 4 mg oral tablet See Instructions, 1 tablet By Mouth Daily, # 20 each, 1 Refills, Maintenance, 05/12/20 16:49:00 EDT, [facility] #84123, 168, cm, 04/29/20 15:56:00 EDT, Height, 83.7, kg, 04/29/20 15:56:00 EDT, Dry Weight Start Date: 05/12/20 Status: Ordered Problem List Condition Effective Dates Status Health Status Inform ant Anxiety(Confirmed) Active Asthma(Confirmed) Active Bipolar disorder (manic depression)(Confirmed) 1 Active Chronic eczema(Confirmed) Active History of depression(Confirmed) Active History of abnormal cervical Pap smear(Confirmed) Active History of marijuana use(Confirmed) Active Irritable bowel(Confirmed) Active Migraine(Confirmed) Active AMA (advanced maternal age) multigravida 35+(Confirmed) Active Care Management [facility] [phone](Confirmed) Active Posttraumatic stress disorder(Confirmed) Active (Confirmed) Active [...]
--- OUTSIDE RECORDS SUMMARY | 2023-01-04 21:38 | XMS_ITS | Continuity of Care Document ---
Author Name Unknown Organization [facility] Address [address] [place] [address]- Care Team Providers Care Devulcanizer Charger Name Role Phone Sadaf Dawkins MD Primary Care Physician [place] [facility] [place] - 05/23/[address] [address]- [place] Attending Physician: Luisa Mills MD Admitting Physician: Luisa Mills MD Referring Physician: Luann Calderon CNM Allergies, Adverse Reactions, Alerts Substance Reaction Severity Status Milk Products Resolved Pork Active Immunizations Given and Recorded Vaccine Date Status Refusal Reason tetanus/diphtheria/pertussis, acel(Tdap) 10/24/13 Given Medications Abilify 10 mg oral tablet 10 mg, 1, tablet, By Mouth, Daily, # 30 tablet, Refills 0, Tot. Refills 0, Maintenance, 05/22/20 14:30:00 EDT, Route to Pharmacy Electronically, [facility] #[id number], 168, cm, 05/22/20 14:15:00 EDT, Height, 83.7, kg, 04/29/20 15:56:00 EDT, Dry... Start Date: 05/22/20 Status: Ordered Actigall 300 mg oral capsule 300 mg, 1, capsule, By Mouth, 3 times a day, # 60 capsule, Refills 1, Tot. Refills 1, Maintenance, 04/29/20 16:07:00 EDT, Route to Pharmacy Electronically, [facility] #26511, 168, cm, 04/29/20 15:56:00 EDT, Height, 83.7, kg, 04/29/20 15:56:0... Start Date: 04/29/20 Status: Ordered albuterol CFC free 90 mcg/inh inhalation aerosol 2, puffs, Inhalation, 4 times a day, PRN, # 25 Gm, Refills 5, Tot. Refills 5, Maintenance, 01/09/2018:29:00 EDT, Aerosol, Route to Pharmacy Electronically, [id number], [facility] #90798, 168, cm, 01/10/20 15:21:00... Start Date: 01/10/20 Status: Ordered Plus Iron oral tablet 1 tablet, By Mouth, Daily, # 30 tablet, 11 Refills, Maintenance, 05/22/20 14:31:00 EDT, Tablet, [facility] #[id number], 1 tablet By Mouth Daily, 168, cm, 05/22/20 14:15:00 EDT, Height, 83.7, kg,04/29/20 15:56:00 EDT, Dry Weight Start Date: 05/22/20 Status: Ordered promethazine 12.5 mg rectal suppository 1 supp = 12.5 mg, Rectally, Every 6 hours, PRN for nausea/vomiting, # 40 supp, 0 Refills, Maintenance, 03/25/20 14:05:00 EDT, Suppository, [facility] #84733, 168, cm, 03/25/20 13:36:00 EDT,Height, 84, kg, 01/23/20 0:53:00 EDT, Dry Weight Start Date: 03/25/20 Status: Ordered Zofran 4 mg oral tablet See Instructions, 1 tablet By Mouth Daily, # 20 each, 1 Refills, Maintenance, 05/12/20 16:49:00 EDT, [facility] #52583, 168, cm, 04/29/20 15:56:00 EDT, Height, 83.7, [...] Management [facility] , [facility] [phone](Confirmed) Active Posttraumatic stress disorder(Confirmed) Active (Confirmed) Active [...]
--- OUTSIDE RECORDS SUMMARY | 2023-01-04 21:38 | XMS_ITS | Continuity of Care Document ---
Author Name Unknown Organization [facility] [employer] Address [address] [place] [address], [address] [place] [address]- Care Team Providers Care Locomotive Crane Engineer Name Role Phone Sadaf Dawkins MD Primary Care Physician En[place] [facility] Date(s): 05/14/20 - 06/25/20 [facility] [address] [facility], [address] [place] [address]- [facility] Attending Physician: Lilia Miller MD Referring Physician: Amanda Rosario CNM Allergies, Adverse Reactions, Alerts Substance Reaction Severity Status Milk Products Resolved Pork Active Immunizations Given and Recorded Vaccine Date Status Refusal Reason tetanus/diphtheria/pertussis, acel(Tdap) 10/24/13 Given Medications Abilify 10 mg oral tablet 10 mg, 1, tablet, By Mouth, Daily, # 30 tablet, Refills 0, Tot. Refills 0, Maintenance, 05/22/20 14:30:00 EDT, Route to Pharmacy Electronically, [facility] #[id number], 168, cm, 05/22/20 14:15:00 EDT, Height, 83.7, kg, 04/29/20 15:56:00 EDT, Dry... Start Date: 05/22/20 Status: Ordered Actigall 300 mg oral capsule 300 mg, 1, capsule, By Mouth, 3 times a day, # 90 capsule, Refills 1, Tot. Refills 1, Maintenance, 05/29/20 13:47:00 EDT, Route to Pharmacy Electronically, [facility] #06399, 168, cm, 05/26/20 15:33:00 EDT, Height, 83.58, kg, 05/26/20 15:33:... Start Date: 05/29/20 Status: Ordered albuterol CFC free 90 mcg/inh inhalation aerosol 2, puffs, Inhalation, 4 times a day, PRN, # 25 Gm, Refills 5, Tot. Refills 5, Maintenance, 01/09/2018:29:00 EDT, Aerosol, Route to Pharmacy Electronically, [id number], [facility] #51041, 168, cm, 01/10/20 15:21:00... Start Date: 01/10/20 Status: Ordered ibuprofen 600 mg oral tablet 600 mg, 1, tablet, By Mouth, 4 times a day, PRN, # 40 tablet, Refills 0, Tot. Refills 0, Maintenance, Pain, 06/10/20 10:28:00 EDT, Route to Pharmacy Electronically, [facility] #72877, 168, cm, 06/10/20 9:28:00 EDT, Height, 83.58, kg, ... Start Date: 06/10/20 Status: Ordered Plus Iron oral tablet 1 tablet, By Mouth, Daily, # 30 tablet, 11 Refills, Maintenance, 05/22/20 14:31:00 EDT, Tablet, [facility] #31776, 1 tablet By Mouth Daily, 168, cm, 05/22/20 14:15:00 EDT, Height, 83.7, kg,04/29/20 15:56:00 EDT, Dry Weight Start Date: 05/22/20 Status: Ordered promethazine 12.5 mg rectal suppository 1 supp = 12.5 mg, Rectally, Every 6 hours, PRN for nausea/vomiting, # 40 supp, 1 Refills, Maintenance, 05/29/20 13:45:00 EDT, Suppository, [facility] #80767, 168, cm, 05/26/20 15:33:00 EDT,Height, 83.58, kg, [...] each, 1 Refills, Maintenance, 05/12/20 16:49:00 EDT, [facility] #[id number], 168, cm, 04/29/20 15:56:00 EDT, Height, 83.7, [...] age) multigravida 35+(Confirmed) Active Care Management [facility] [phone](Confirmed) Active Posttraumatic stress disorder(Confirmed) Active (Confirmed) Active [...]
--- OUTSIDE RECORDS SUMMARY | 2023-01-04 21:38 | XMS_ITS | Continuity of Care Document ---
Author Name Unknown Organization [facility] Address [address] [address]- Care Team Providers Care Boathouse Keeper Name Role Phone Checo John Primary Care Physician [phone] [place] [facility] [place] Date[place]s): 06/01/22 - 07/01/22 [facility] [address] [address] [place] Allergies, Adverse Reactions, Alerts Substance Reaction [...] 16:07:00 EST, Aerosol, Route to Pharmacy Electronically, [id number], [facility] #[id number], 168, cm, 08/20/21 15:40:... Start Date: 08/20/21 [...] multigravida 35+(Confirmed) Active Obese class I(Confirmed) Active [facility] Care Management [facility] Scarlett Walton [phone](Confirmed) Active Posttraumatic stress disorder(Confirmed) Active (Confirmed) Active Urinary incontinence(Confirmed) Active Ventricular ectopy(Confirmed) Active 1Hx suicide attempt Social History Social History Type Response Smoking Status Former smoker, quit more than 30 days ago entered on: 11/11/21 Sex 1Has been off since 2006 Care Team Personnel Name: Cehco John Address: [address] [place] [id number] [place] [address]
--- OUTSIDE RECORDS SUMMARY | 2023-01-04 21:38 | XMS_ITS | Continuity of Care Document ---
Author Name Unknown Organization [facility] Address [address] [place] [address]- Care Team Providers Care Director Public Service Name Role Phone Sadaf Dawkins MD Primary Care Physician [place] [facility] [place] - 06/27/[address] [address]- Allergies, Adverse Reactions, Alerts Substance Reaction Severity Status Milk Products Resolved Pork Active Immunizations Given and Recorded Vaccine Date Status Refusal Reason tetanus/diphtheria/pertussis, acel(Tdap) 10/24/13 Given Medications albuterol CFC free 90 mcg/inh inhalation aerosol 2, puffs, Inhalation, 4 times a day, PRN, # 1 each, Refills 11, Tot. Refills 11, Maintenance, 04/14/21 14:17:00 EDT, Aerosol, Route to Pharmacy Electronically, [id number], [facility] #[id number], 168, cm, 04/14/21 14:05:... Start Date: 04/14/21 [...] multigravida 35+(Confirmed) Active Care Management [facility] Taylerman (Confirmed) Active Posttraumatic stress disorder(Confirmed) Active [...]
--- OUTSIDE RECORDS SUMMARY | 2023-01-04 21:38 | XMS_ITS | Continuity of Care Document ---
Author Name Unknown Organization [facility] Address [address] [address]- Care Team Providers Care Piling Cutter Name Role Phone Checo John Primary Care Physician [phone] Encounter [facility] [place] Date(s): 05/06/22 - 06/05/22 [facility] [address] [place] [id number] Allergies, Adverse Reactions, Alerts Substance Reaction [...] 16:07:00 EST, Aerosol, Route to Pharmacy Electronically, [id number], [id number], 168, cm, 08/20/21 15:40:... Start Date: 08/20/21 [...] Obese class I(Confirmed) Active N Care Management [facility] J[facility] , Scarlett Walton [phone](Confirmed) Active Posttraumatic stress disorder(Confirmed) Active (Confirmed) Active Urinary incontinence(Confirmed) Active Ventricular ectopy(Confirmed) Active 1Hx suicide attempt Social History Social History Type Response Smoking Status Former smoker, quit more than 30 days ago entered on: 11/11/21 Sex 1Has been off since 2006 Care Team Personnel Name: Checo John Address: [address] [place] [address] Care [place], [place] [address]
--- OUTSIDE RECORDS SUMMARY | 2023-01-04 21:38 | XMS_ITS | Continuity of Care Document ---
Author Name Unknown Organization [facility] Address [address] [place] [address]- Care Team Providers Care Life Agent Name Role Phone Checo John Primary Care Physician En[facility] [place] [facility] R [id number] Date(s): 03/31/22 - 06/01/22 [facility] [address] [place] [address] Attending Physician: Albert Ardon MD Admitting Physician: Albert Ardon MD Referring Physician: Checo John Allergies, Adverse Reactions, [...] 16:07:00 EST, Aerosol, Route to Pharmacy Electronically, [id number], [facility] #[id number], 168, cm, 08/20/21 15:40:... Start Date: 08/20/21 [...] Obese class I(Confirmed) Active N Care Management [facility] , Scarlett Walton [phone](Confirmed) Active Posttraumatic stress disorder(Confirmed) Active (Confirmed) Active Urinary incontinence(Confirmed) Active Ventricular ectopy(Confirmed) Active 1Hx suicide attempt Social History Social History Type Response Smoking Status Former smoker, quit more than 30 days ago entered on: 11/11/21 Sex 1Has been off since 2006
--- OUTSIDE RECORDS SUMMARY | 2023-01-04 21:38 | XMS_ITS | Continuity of Care Document ---
Author Name Unknown Organization [facility] Address [address] [address]- Care Team Providers Care Beef Cattle Grazier Name Role Phone Sadaf Dawkins MD Primary Care Physician [place] [facility] [id number] Date(s): 04/30/21 - 05/30/21 [facility] [address] [address]- Attending Physician: Ora Brown Admitting Physician: Admtr, Ar8 Referring Physician: Admtr, [...] 14:17:00 EDT, Aerosol, Route to Pharmacy Electronically, [id number], [facility] #[id number], 168, cm, 04/14/21 14:05:... Start Date: 04/14/21 [...] 35+(Confirmed) Active Care Management [facility] Taylerman (Confirmed) Active Posttraumatic stress disorder(Confirmed) Active [...]
--- OUTSIDE RECORDS SUMMARY | 2023-01-04 21:38 | XMS_ITS | Continuity of Care Document ---
Author Name Unknown Organization [facility] Address [address] [place] [address]- Care Team Providers Care Kennel Staff Member Name Role Phone Sadaf Dawkins MD Primary Care Physician [phone] Encounter [facility] [place] Date(s): 05/06/20 - 06/05/[address] [address]- [facility] Attending Physician: Admtr, Ar8 Allergies, Adverse Reactions, Alerts Substance Reaction Severity Status Milk Products Resolved Pork Active Immunizations Given and Recorded Vaccine Date Status Refusal Reason tetanus/diphtheria/pertussis, acel(Tdap) 10/24/13 Given Medications Abilify 10 mg oral tablet 10 mg, 1, tablet, By Mouth, Daily, # 30 tablet, Refills 0, Tot. Refills 0, Maintenance, 05/22/20 14:30:00 EDT, Route to Pharmacy Electronically, [facility] #[id number], 168, cm, 05/22/20 14:15:00 EDT, Height, 83.7, kg, 04/29/20 15:56:00 EDT, Dry... Start Date: 05/22/20 Status: Ordered Actigall 300 mg oral capsule 300 mg, 1, capsule, By Mouth, 3 times a day, # 90 capsule, Refills 1, Tot. Refills 1, Maintenance, 05/29/20 13:47:00 EDT, Route to Pharmacy Electronically, [facility] #[id number], 168, cm, 05/26/20 15:33:00 EDT, Height, 83.58, kg, 05/26/20 15:33:... Start Date: 05/29/20 Status: Ordered albuterol CFC free 90 mcg/inh inhalation aerosol 2, puffs, Inhalation, 4 times a day, PRN, # 25 Gm, Refills 5, Tot. Refills 5, Maintenance, 01/09/2018:29:00 EDT, Aerosol, Route to Pharmacy Electronically, [id number], [facility] #[id number], 168, cm, 01/10/20 15:21:00... Start Date: 01/10/20 Status: Ordered Plus Iron oral tablet 1 tablet, By Mouth, Daily, # 30 tablet, 11 Refills, Maintenance, 05/22/20 14:31:00 EDT, Tablet, [facility] #[id number], 1 tablet By Mouth Daily, 168, cm, 05/22/20 14:15:00 EDT, Height, 83.7, kg,04/29/20 15:56:00 EDT, Dry Weight Start Date: 05/22/20 Status: Ordered promethazine 12.5 mg rectal suppository 1 supp = 12.5 mg, Rectally, Every 6 hours, PRN for nausea/vomiting, # 40 supp, 1 Refills, Maintenance, 05/29/20 13:45:00 EDT, Suppository, [facility] #[id number], 168, cm, 05/26/20 15:33:00 EDT,Height, 83.58, kg, 05/26/20 15:33:00 EDT, Dry Weight Start Date: 05/29/20 Status: Ordered Zofran 4 mg oral tablet See Instructions, 1 tablet By Mouth Daily, # 20 each, 1 Refills, Maintenance, 05/12/20 16:49:00 EDT, [facility] #[id number], 168, cm, 04/29/20 15:56:00 EDT, Height, 83.7, [...] maternal age) multigravida 35+(Confirmed) Active Care Management [facility] Nela CC [phone](Confirmed) Active Posttraumatic stress disorder(Confirmed) Active (Confirmed) Active [...]
--- OUTSIDE RECORDS SUMMARY | 2023-01-04 21:38 | XMS_ITS | Continuity of Care Document ---
Author Name Unknown Organization [facility] Address [address] [place] [address]- Care Team Providers Care Measurer Machine Name Role Phone Sadaf Dawkins MD Primary Care Physician En[place] [facility] [place] Date(s): 10/03/19 - 10/10/19 [facility] [address] [place] [address]- [facility] Attending Physician: Maykel WOLF, [address] Referring Physician: Sadaf Dawkins MD Allergies, Adverse Reactions, Alerts Substance Reaction Severity Status Milk Products Active Pork Active Immunizations Given and Recorded Vaccine Date Status Refusal Reason tetanus/diphtheria/pertussis, acel(Tdap) 10/24/13 Given Medications albuterol CFC free 90 mcg/inh inhalation aerosol 2, puffs, Inhalation, 4 times a day, PRN, # 25 Gm, Refills 5, Tot. Refills 5, Maintenance, 05/02/1916:45:21 EDT, Aerosol, Route to Pharmacy Electronically, [id number], [facility] #[id number] Start Date: 05/02/19 Status: Ordered Banophen 50 mg oral capsule 2 capsule, By Mouth, Daily at bedtime, PRN NEEDED FOR INSOMNIA, # 60 capsule, 0 Refills, Soft Stop, 09/30/19 7:45:00 EST, [facility] #[id number], 168, cm, 08/20/19 13:51:00 EST, Height, 97.9,kg, 05/21/19 16:53:00 EDT, Dry Weight Start Date: 09/30/19 Status: Ordered cloNIDine 0.1 mg oral tablet 0.1 mg, 1, tablet, By Mouth, 3 times a day, # 90 tablet, Refills 4, Tot. Refills 4, Maintenance, 05/09/19 12:24:02 EDT, Route to Pharmacy Electronically, [id number], [facility] #[id number] Start Date: 05/09/19 Stop Date: 10/06/19 Status: [...] 0 Refills, Soft Stop, 10/05/19 13:18:00 EST, Tablet,[facility] #[id number], 168, cm, 10/03/19 10:33:00 EST, Height, 93.3, [...] Maintenance, 07/16/16 22:20:46, Route to Pharmacy Electronically, [id number], [email or web address] [id number] Start Date: 07/16/16 Status: Ordered prazosin 5 mg oral capsule 5 mg, 1, capsule, By Mouth, Daily at bedtime, # 30 capsule, Refills 4, Tot. Refills 4, Maintenance,05/09/19 12:25:10 EDT, Route to Pharmacy Electronically, [id number], [facility] #[id number] Start Date: 05/09/19 Stop Date: 10/06/19 Status: [...] History of marijuana use(Confirmed) Active Care Management [facility] , Nela MarkhamLivier CC [phone](Confirmed) Active Posttraumatic stress disorder(Confirmed) Active Sarcoid(Confirmed) 2 Active Urinary incontinence(Confirmed) Active 1Hx suicide attempt 2Possible dx sarcoid. Hx recurrent right uveitis. Elevated MELISSA level. PET w/ increased uptake in parotids. Vital Signs Most recent to oldest [Reference Range]: 1 Height 168 cm (10/03/19 10:33 AM) Weight 93.3 kg (10/03/19 10:33 AM) Oxygen Saturation [94-100 %] 100 % (10/03/19 10:33 AM) Pulse Rate [55-90 bpm] 77 bpm (10/03/19 10:33 AM) Body Mass Index [18.5-24.99] 33.06 *>HHI* (10/03/19 10:33 AM) Blood Pressure [90-138/55-84 mm Hg] 132/ 75mm Hg (10/03/19 10:33 AM) Respiratory Rate [16-30 br/min] 18 br/mi n (10/03/19 10:33 AM) Temperature [96.8-100.4 DegF] 98.1 DegF (10/03/19 10:33 AM) Mode of Delivery (Oxygen) Room air (10/03/19 10:33 AM) Blood pressure sites Arm, right (10/03/19 10:33 AM) Temperature Route Oral (10/03/19 10:33 AM) Dry Weight 93.3 kg (10/03/19 10:33 AM) Dry Weight Obtained Via Standing scale (10/03/19 10:33 AM) Social History Social History Type Response Smoking Status Never smoker entered on: 10/26/14 Sex 1Has been off since 2006
--- OUTSIDE RECORDS SUMMARY | 2023-01-04 21:38 | XMS_ITS | Continuity of Care Document ---
Author Name Unknown Organization [facility] Address [address] [place] [address]- Care Team Providers Care Belt Buckle Maker Name Role Phone Checo John Primary Care Physician [place] [facility] [place] Date(s): 07/08/22 - 08/07/22 [facility] [address] [place], [place] [address] Attending Physician: Ora Brown Admitting Physician: AdmOra [...] 16:07:00 EST, Aerosol, Route to Pharmacy Electronically, [id number], [facility] #[id number], 168, cm, 08/20/21 15:40:... Start Date: 08/20/21 [...] Refills, Soft Stop, 07/08/22 12:02:00 EDT, Tablet, [facility] #[id number], Partial fill upon patient request if the [...] class I Confirmed Active [facility] [phone] Confirmed Active Posttraumatic stress disorder Confirmed Active Confirmed Active Urinary incontinence Confirmed Active Ventricular ectopy Confirmed Active 1Hx suicide attempt Social History Social History Type Response Smoking Status Former smoker, quit more than 30 days ago entered on: 11/11/21 Sex 1Has been off since 2006 Patient Care team information Personnel Name: Checo John Address: Address: [address] [place] [address] [place], [place] [address]
--- OUTSIDE RECORDS SUMMARY | 2023-01-04 21:38 | XMS_ITS | Continuity of Care Document ---
Author Name Unknown Organization [facility] [place] Address [address] [place] [address]- Care Team Providers Care Winder Hand Name Role Phone Checo John Primary Care Physician Encounter [facility] Date(s): 02/25/22 - 03/27/22 [facility] [place] [address] [place], [place] [address] Allergies, Adverse Reactions, Alerts Substance Reaction [...] 16:07:00 EST, Aerosol, Route to Pharmacy Electronically, [id number], [facility] #[id number], 168, cm, 08/20/21 15:40:... Start Date: 08/20/21 [...] multigravida 35+(Confirmed) Active Obese class I(Confirmed) Active [facility] Care Management [facility] , Scarlett Walton [phone](Confirmed) Active Posttraumatic stress disorder(Confirmed) Active (Confirmed) Active Urinary incontinence(Confirmed) Active Ventricular ectopy(Confirmed) Active 1Hx suicide attempt Social History Social History Type Response Smoking Status Former smoker, quit more than 30 days ago entered on: 11/11/21 Sex 1Has been off since 2006
--- OUTSIDE RECORDS SUMMARY | 2023-01-04 21:38 | XMS_ITS | Continuity of Care Document ---
Author Name Unknown Organization [facility] Address [address] [place] [address]- Care Team Providers Care Glass Melt Operator Name Role Phone Sadaf Dawkins MD Primary Care Physician En[facility] Date(s): 06/02/20 - 07/02/20 [facility] [address] [address]- [facility] Allergies, Adverse Reactions, Alerts Substance Reaction Severity Status Milk Products Resolved Pork Active Immunizations Given and Recorded Vaccine Date Status Refusal Reason tetanus/diphtheria/pertussis, acel(Tdap) 10/24/13 Given Medications Abilify 10 mg oral tablet 10 mg, 1, tablet, By Mouth, Daily, # 30 tablet, Refills 0, Tot. Refills 0, Maintenance, 05/22/20 14:30:00 EDT, Route to Pharmacy Electronically, [facility] #[id number], 168, cm, 05/22/20 14:15:00 EDT, Height, 83.7, kg, 04/29/20 15:56:00 EDT, Dry... Start Date: 05/22/20 Status: Ordered Actigall 300 mg oral capsule 300 mg, 1, capsule, By Mouth, 3 times a day, # 90 capsule, Refills 1, Tot. Refills 1, Maintenance, 05/29/20 13:47:00 EDT, Route to Pharmacy Electronically, [facility] #[id number], 168, cm, 05/26/20 15:33:00 EDT, Height, 83.58, kg, 05/26/20 15:33:... Start Date: 05/29/20 Status: Ordered albuterol CFC free 90 mcg/inh inhalation aerosol 2, puffs, Inhalation, 4 times a day, PRN, # 25 Gm, Refills 5, Tot. Refills 5, Maintenance, 01/09/2018:29:00 EDT, Aerosol, Route to Pharmacy Electronically, [id number], [facility] #[id number], 168, cm, 01/10/20 15:21:00... Start Date: 01/10/20 Status: Ordered ibuprofen 600 mg oral tablet 600 mg, 1, tablet, By Mouth, 4 times a day, PRN, # 40 tablet, Refills 0, Tot. Refills 0, Maintenance, Pain, 06/10/20 10:28:00 EDT, Route to Pharmacy Electronically, [facility] #[id number], 168, cm, 06/10/20 9:28:00 EDT, Height, 83.58, kg, ... Start Date: 06/10/20 Status: Ordered Plus Iron oral tablet 1 tablet, By Mouth, Daily, # 30 tablet, 11 Refills, Maintenance, 05/22/20 14:31:00 EDT, Tablet, [facility] #[id number], 1 tablet By Mouth Daily, 168, cm, 05/22/20 14:15:00 EDT, Height, 83.7, kg,04/29/20 15:56:00 EDT, Dry Weight Start Date: 05/22/20 Status: Ordered promethazine 12.5 mg rectal suppository 1 supp = 12.5 mg, Rectally, Every 6 hours, PRN for nausea/vomiting, # 40 supp, 1 Refills, Maintenance, 05/29/20 13:45:00 EDT, Suppository, [facility] #[id number], 168, cm, 05/26/20 15:33:00 EDT,Height, 83.58, kg, [...] each, 1 Refills, Maintenance, 05/12/20 16:49:00 EDT, [facility] #[id number], 168, cm, 04/29/20 15:56:00 EDT, Height, 83.7, [...] maternal age) multigravida 35+(Confirmed) Active Care Management [facility] , Nela Byrd CC [phone](Confirmed) Active Posttraumatic stress disorder(Confirmed) Active (Confirmed) Active [...]
--- OUTSIDE RECORDS SUMMARY | 2023-01-04 21:38 | XMS_ITS | Continuity of Care Document ---
Author Name Unknown Organization [facility] Address [address] [place] [address], [address] [place] [address]- Care Team Providers Care Flue Gas Analyst Name Role Phone Sadaf Dawkins MD Primary Care Physician [phone] [place] [facility] [place] - 04/16/21 [facility] [address] [facility], [address] [place] [address]- Attending Physician: Tari Macario MD Admitting Physician: Tari Macario MD Referring Physician: Sadaf Dawkins MD Allergies, [...] 14:17:00 EDT, Aerosol, Route to Pharmacy Electronically, [id number], [facility] #[id number], 168, cm, 04/14/21 14:05:... Start Date: 04/14/21 [...] maternal age) multigravida 35+(Confirmed) Active Care Management [facility] (Confirmed) Active Posttraumatic stress disorder(Confirmed) Active (Confirmed) [...]
--- OUTSIDE RECORDS SUMMARY | 2023-01-04 21:38 | XMS_ITS | Continuity of Care Document ---
Author Name Unknown Organization [facility] Address [address] [place] [address]- Care Team Providers Care Train Station Agent Name Role Phone Sadaf Dawkins MD Primary Care Physician [phone] [id number]13[facility] [address] [place] [address]- Attending Physician: Meggan Fishman MD Referring Physician: Sadaf Dawkins MD Allergies, [...] 14:17:00 EDT, Aerosol, Route to Pharmacy Electronically, [id number], [facility] #[id number], 168, cm, 04/14/21 14:05:... Start Date: 04/14/21 [...] maternal age) multigravida 35+(Confirmed) Active [facility] (Confirmed) Active Posttraumatic stress disorder(Confirmed) Active (Confirmed) Active Sarcoid(Confirmed) 2 Active Urinary incontinence(Confirmed) Active 1Hx suicide attempt 2Possible dx sarcoid. Hx recurrent right uveitis. Elevated MELISSA level. PET w/ increased uptake in parotids. Vital Signs Most recent to oldest [Reference Range]: 1 Height 168 cm (08/06/21 1:12 PM) Oxygen Saturation [94-100 %] 100 % (08/06/21 1:12 PM) Pulse Rate [55-90 bpm] 77 bpm (08/06/21 1:12 PM) Blood Pressure [90-138/55-84 mm Hg] 110/ 62mm Hg (08/06/21 1:12 PM) Respiratory Rate [16-30 br/min] 20 br/mi n (08/06/21 1:12 PM) Temperature [96.8-100.4 DegF] 98.3 DegF (08/06/21 1:12 PM) Mode of Delivery (Oxygen) Room air (08/06/21 1:12 PM) Blood pressure sites Arm, left (08/06/21 1:12 PM) Temperature Route Temporal (08/06/21 1:12 PM) Social History Social History Type Response Smoking Status Former smoker; Type: Cigarettes; Tobacco use times per day: 1 pack/week; 1 entered on: 10/24/13 Sex 1Has been off since 2006
--- OUTSIDE RECORDS SUMMARY | 2023-01-04 21:38 | XMS_ITS | Continuity of Care Document ---
Author Name Unknown Organization [facility] Address [address] [place] [address]- Care Team Providers Care Manufacturing Engineer Name Role Phone Sadaf Dawkins MD Primary Care Physician En[facility] [place] Date(s): 08/23/21 - 09/22/[address] [address]- Allergies, Adverse Reactions, Alerts Substance Reaction Severity [...] 16:07:00 EST, Aerosol, Route to Pharmacy Electronically, [id number], [facility] #[id number], 947, cm, 08/20/21 15:40:... Start Date: 08/20/21 Stop [...] multigravida 35+(Confirmed) Active Obese class I(Confirmed) Active [facility] Care Management [facility] , Scarlett Anton [phone](Confirmed) Active Posttraumatic stress disorder(Confirmed) Active (Confirmed) Active [...]
--- OUTSIDE RECORDS SUMMARY | 2023-01-04 21:38 | XMS_ITS | Continuity of Care Document ---
Author Name Unknown [facility] Address [address] [place] [address]- Care Team Providers Care Parimutuel Ticket Checker Name Role Phone Sadaf Dawkins MD Primary Care Physician [phone] [place] [facility] [place](s): 05/06/20 - 06/05/20 [facility] [address] [address]- [facility] Allergies, Adverse Reactions, Alerts Substance Reaction Severity Status Milk Products Resolved Pork Active Immunizations Given and Recorded Vaccine Date Status Refusal Reason tetanus/diphtheria/pertussis, acel(Tdap) 10/24/13 Given Medications Abilify 10 mg oral tablet 10 mg, 1, tablet, By Mouth, Daily, # 30 tablet, Refills 0, Tot. Refills 0, Maintenance, 05/22/20 14:30:00 EDT, Route to Pharmacy Electronically, [facility] #[id number], 168, cm, 05/22/20 14:15:00 EDT, Height, 83.7, kg, 04/29/20 15:56:00 EDT, Dry... Start Date: 05/22/20 Status: Ordered Actigall 300 mg oral capsule 300 mg, 1, capsule, By Mouth, 3 times a day, # 90 capsule, Refills 1, Tot. Refills 1, Maintenance, 05/29/20 13:47:00 EDT, Route to Pharmacy Electronically, [facility] #[id number], 168, cm, 05/26/20 15:33:00 EDT, Height, 83.58, kg, 05/26/20 15:33:... Start Date: 05/29/20 Status: Ordered albuterol CFC free 90 mcg/inh inhalation aerosol 2, puffs, Inhalation, 4 times a day, PRN, # 25 Gm, Refills 5, Tot. Refills 5, Maintenance, 01/09/2018:29:00 EDT, Aerosol, Route to Pharmacy Electronically, [id number], [facility] #[id number], 168, cm, 01/10/20 15:21:00... Start Date: 01/10/20 Status: Ordered Plus Iron oral tablet 1 tablet, By Mouth, Daily, # 30 tablet, 11 Refills, Maintenance, 05/22/20 14:31:00 EDT, Tablet, [facility] #09913, 1 tablet By Mouth Daily, 168, cm, 05/22/20 14:15:00 EDT, Height, 83.7, kg,04/29/20 15:56:00 EDT, Dry Weight Start Date: 05/22/20 Status: Ordered promethazine 12.5 mg rectal suppository 1 supp = 12.5 mg, Rectally, Every 6 hours, PRN for nausea/vomiting, # 40 supp, 1 Refills, Maintenance, 05/29/20 13:45:00 EDT, Suppository, [facility] #68430, 168, cm, 05/26/20 15:33:00 EDT,Height, 83.58, kg, 05/26/20 15:33:00 EDT, Dry Weight Start Date: 05/29/20 Status: Ordered Zofran 4 mg oral tablet See Instructions, 1 tablet By Mouth Daily, # 20 each, 1 Refills, Maintenance, 05/12/20 16:49:00 EDT, [facility] #09500, 168, cm, 04/29/20 15:56:00 EDT, Height, 83.7, [...] multigravida 35+(Confirmed) Active Care Management [facility] [phone](Confirmed) Active Posttraumatic stress disorder(Confirmed) Active (Confirmed) Active [...]
--- OUTSIDE RECORDS SUMMARY | 2023-01-04 21:39 | XMS_ITS | Continuity of Care Document ---
Author Name Unknown Organization [facility] Address [address] [place] [address]- Care Team Providers Care Stain Remover Name Role Phone Sadaf Dawkins MD Primary Care Physician [phone] Encounter [facility] Date(s): 06/24/21 - 08/13/[address] [address]- Attending Physician: Sadaf Dawkins MD Admitting Physician: Sadaf Dawkins MD Allergies, Adverse Reactions, Alerts Substance Reaction Severity Status Milk Products Resolved Pork Active Immunizations Given and Recorded Vaccine Date Status Refusal Reason tetanus/diphtheria/pertussis, acel(Tdap) 10/24/13 Given Medications albuterol CFC free 90 mcg/inh inhalation aerosol 2, puffs, Inhalation, 4 times a day, PRN, # 1 each, Refills 11, Tot. Refills 11, Maintenance, 04/14/21 14:17:00 EDT, Aerosol, Route to Pharmacy Electronically, [id number], [facility] #[id number], 168, cm, 04/14/21 14:05:... Start Date: 04/14/21 [...] maternal age) multigravida 35+(Confirmed) Active Care Management [facility] (Confirmed) Active Posttraumatic stress disorder(Confirmed) Active [...]
--- OUTSIDE RECORDS SUMMARY | 2023-01-04 21:39 | XMS_ITS | Continuity of Care Document ---
Author Name Unknown Organization [facility] Address [facility] [address] [address]- Care Team Providers Care Fleet Sales Associate Name Role Phone Sadaf Dawkins MD Primary Care Physician [place] [facility] [place]/02/20 - 01/21/21 [facility] [address] [address]- Attending Physician: Danyelle Abraham CNM Admitting Physician: Danyelle Abraham CNM Referring Physician: Sadaf Dawkins MD Allergies, Adverse Reactions, Alerts Substance Reaction Severity Status Milk Products Resolved Pork Active Immunizations Given and Recorded Vaccine Date Status Refusal Reason tetanus/diphtheria/pertussis, acel(Tdap) 10/24/13 Given Medications Abilify 10 mg oral tablet 10 mg, 1, tablet, By Mouth, Daily, # 30 tablet, Refills 0, Tot. Refills 0, Maintenance, 05/22/20 14:30:00 EDT, Route to Pharmacy Electronically, [facility] #[id number], 168, cm, 05/22/20 14:15:00 EDT, Height, 83.7, kg, 04/29/20 15:56:00 EDT, Dry... Start Date: 05/22/20 Status: Ordered Actigall 300 mg oral capsule 300 mg, 1, capsule, By Mouth, 3 times a day, # 90 capsule, Refills 1, Tot. Refills 1, Maintenance, 05/29/20 13:47:00 EDT, Route to Pharmacy Electronically, [facility][id number], 168, cm, 05/26/20 15:33:00 EDT, Height, 83.58, kg, 05/26/20 15:33:... Start Date: 05/29/20 Status: Ordered albuterol CFC free 90 mcg/inh inhalation aerosol 2, puffs, Inhalation, 4 times a day, PRN, # 25 Gm, Refills 5, Tot. Refills 5, Maintenance, 01/09/2018:29:00 EDT, Aerosol, Route to Pharmacy Electronically, [id number], [facility] #[id number], 168, cm, 01/10/20 15:21:00... Start Date: 01/10/20 Status: Ordered Diflucan 150 mg oral tablet 1 tablet = 150 mg, By Mouth, Once, # 1 tablet, 0 Refills, Soft Stop, 11/11/20 13:24:00 EST, Tablet,[facility] #[id number], Partial fill upon patient request if the prescription is for a schedule II opioid drug., 168, cm, 10/29/20 9:46:00 EST, He... Start Date: 11/11/20 Status: Ordered ibuprofen 600 mg oral tablet 600 mg, 1, tablet, By Mouth, 4 times a day, PRN, # 40 tablet, Refills 0, Tot. Refills 0, Maintenance, Pain, 06/10/20 10:28:00 EDT, Route to Pharmacy Electronically, [facility] #[id number], 168, cm, 06/10/20 9:28:00 EDT, Height, 83.58, kg, ... Start Date: 06/10/20 Status: Ordered Plus Iron oral tablet 1 tablet, By Mouth, Daily, # 30 tablet, 11 Refills, Maintenance, 05/22/20 14:31:00 EDT, Tablet, [facility] #[id number], 1 tablet By Mouth Daily, 168, cm, 05/22/20 14:15:00 EDT, Height, 83.7, kg,04/29/20 15:56:00 EDT, Dry Weight Start Date: 05/22/20 Status: Ordered promethazine 12.5 mg rectal suppository 1 supp = 12.5 mg, Rectally, Every 6 hours, PRN for nausea/vomiting, # 40 supp, 1 Refills, Maintenance, 05/29/20 13:45:00 EDT, Suppository, [facility] #[id number], 168, cm, 05/26/20 15:33:00 EDT,Height, 83.58, kg, [...] each, 1 Refills, Maintenance, 05/12/20 16:49:00 EDT, [facility] #[id number], 168, cm, 04/29/20 15:56:00 EDT, Height, 83.7, [...] maternal age) multigravida 35+(Confirmed) Active Care Management [facility] [phone](Confirmed) Active Posttraumatic stress disorder(Confirmed) Active (Confirmed) Active [...]
--- OUTSIDE RECORDS SUMMARY | 2023-01-04 21:39 | XMS_ITS | Continuity of Care Document ---
Author Name Unknown Organization [facility] Address [address] [address]- Care Team Providers Care Bilingual Operator Name Role Phone Checo John Primary Care Physician [phone] [place] [facility] Date(s): 05/05/22 - 05/12/22 [facility] [address] [address]- [place] Encounter Diagnosis PVC's (premature ventricular contractions)(Discharge Diagnosis) - 05/05/22 Attending Physician: Norman Vera MD Admitting Physician: Norman Vera MD Referring Physician: Checo John Allergies, Adverse [...] 16:07:00 EST, Aerosol, Route to Pharmacy Electronically, [id number], [id number], 168, cm, 08/20/21 15:40:... Start Date: 08/20/21 [...] multigravida 35+(Confirmed) Active Obese class I(Confirmed) Active [facility] Care Management Scarlett Tiwari [phone](Confirmed) Active Posttraumatic stress disorder(Confirmed) Active (Confirmed) Active Urinary incontinence(Confirmed) Active Ventricular ectopy(Confirmed) Active 1Hx suicide attempt Diagnosis Diagnosis Type Effective Dates Health Status Clinical Service Informant PVC's (premature ventricular contractions) Discharge Diagnosis 05/05/22 Vital Signs Most recent to oldest [Reference Range]: 1 Height 168 cm (05/05/22 11:02 AM) Weight 95.9 kg (05/05/22 11:02 AM) Oxygen Saturation [94-100 %] 100 % (05/05/22 11:02 AM) Pulse Rate [55-90 bpm] 62 bpm (05/05/22 11:02 AM) Body Mass Index [18.5-24.99] 33.98 *>HHI* (05/05/22 11:02 AM) Blood Pressure [90-138/55-84 mm Hg] 121/ 68mm Hg (05/05/22 11:02 AM) Mode of Delivery (Oxygen) Room air (05/05/22 11:02 AM) Blood pressure sites Arm, left (05/05/22 11:02 AM) Weight Obtained Via Standing scale (05/05/22 11:02 AM) Social History Social History Type Response Smoking Status Former smoker, quit more than 30 days ago entered on: 11/11/21 Sex 1Has been off since 2006
--- OUTSIDE RECORDS SUMMARY | 2023-01-04 21:39 | XMS_ITS | Continuity of Care Document ---
Author Name Unknown Organization [facility] Address [address] [address]- Care Team Providers Care Paper Cup Machine Operator Name Role Phone Checo John Primary Care Physician En[place] [facility] [place] Date(s): 11/24/22 - 12/24/22 [facility] [address] [address]- Attending Physician: Ora Brown Admitting Physician: AdmtrOra Referring Physician: Admtr, Ar8 [...] 16:07:00 EST, Aerosol, Route to Pharmacy Electronically, [id number], [facility] #[id number], 708, cm, 08/20/21 15:40:... Start Date: 08/20/21 Stop [...] Refills, Soft Stop, 07/08/22 12:02:00 EDT, Tablet, [facility] #[id number], Partial fill upon patient request if the prescription is for a schedule... Start Date: 07/08/22 Status: Ordered fluconazole 150 mg oral tablet 1 tablet = 150 mg, By Mouth, Once, Repeat dose if still having symptoms in 72 hours, # 2 tablet, 0 Refills, Soft Stop, 12/06/22 9:23:00 EST, Tablet, [facility] #[id number], Partial fill upon patient request if the [...] Confirmed Active Obese class I Confirmed Active [facility] [phone] Confirmed Active Posttraumatic stress disorder Confirmed Active Confirmed Active Urinary incontinence Confirmed Active Ventricular ectopy Confirmed Active 1Hx suicide attempt Social History Social History Type Response Smoking Status Former smoker, quit more than 30 days ago entered on: 11/11/21 Sex 1Has been off since 2006 Patient Care team information Care Team Personnel Name: Jerome MARTINEZ, Era Alvarez Position: Reference Physician Member Role: Primary Care Nurse Address: Address: [address] [place] [address]- [place] Name: Mally Ham RN Position: [facility] RN Member Role: Primary Care Nurse Name: Checo John Position: [facility] PCO Associate Professional Member Role: PCP Address: Address: [address] [place] [address] [place] [address]- Name: Rossana Avalos RN Position: [facility] SN RN Member Role: Primary Care Nurse Care Team Related Persons Name: JEANETTE PASQUALE Address: home [address] [place] [address] Name: ANICETO LUNA Address: home [address] [place] [address] Name: NAIMA LUNA Address: Address: home [address] [place] [address] [place] Name: PT STATES NO ONE, NONE
--- OUTSIDE RECORDS SUMMARY | 2023-01-04 21:39 | XMS_ITS | Continuity of Care Document ---
Author Name Unknown Organization [facility] Address [address] [place] [address]- Care Team Providers Care Dermatology Teacher Name Role Phone Checo John Primary Care Physician [phone] Encounter [facility] Date(s): 05/20/22 - 06/19/22 [facility] [place] [address] [place], [place] [address] Allergies, Adverse Reactions, Alerts Substance Reaction Severity [...] 16:07:00 EST, Aerosol, Route to Pharmacy Electronically, [id number], [facility] #[id number], 168, cm, 08/20/21 15:40:... Start Date: 08/20/21 [...] 35+(Confirmed) Active Obese class I(Confirmed) Active [facility] Care Management [facility] , Scarlett Walton [phone](Confirmed) Active Posttraumatic stress disorder(Confirmed) Active (Confirmed) Active Urinary incontinence(Confirmed) Active Ventricular ectopy(Confirmed) Active 1Hx suicide attempt Social History Social History Type Response Smoking Status Former smoker, quit more than 30 days ago entered on: 11/11/21 Sex 1Has been off since 2006 Care Team Personnel Name: Checo John Address: [address] [place] [address]
--- OUTSIDE RECORDS SUMMARY | 2023-01-04 21:39 | XMS_ITS | Continuity of Care Document ---
Author Name Unknown Organization [facility] Address [address] [address]- Care Team Providers Care Store Management Trainee Name Role Phone Checo John Primary Care Physician [place] [facility] [id number] Date(s): 05/18/22 - 05/25/22 [facility] [address] [address]- Attending Physician: Norman Vera MD Admitting Physician: Norman Vera MD Referring Physician: Norman Vera MD Allergies, Adverse Reactions, Alerts Substance Reaction [...] 16:07:00 EST, Aerosol, Route to Pharmacy Electronically, [id number], [facility] #[id number], 168, cm, 08/20/21 15:40:... Start Date: 08/20/21 [...] Active [facility] Care Management Nathan Stover , Scarlett Walton [phone](Confirmed) Active Posttraumatic stress disorder(Confirmed) Active (Confirmed) Active Urinary incontinence(Confirmed) Active Ventricular ectopy(Confirmed) Active 1Hx suicide attempt Social History Social History Type Response Smoking Status Former smoker, quit more than 30 days ago entered on: 11/11/21 Sex 1Has been off since 2006
--- OUTSIDE RECORDS SUMMARY | 2023-01-04 21:39 | XMS_ITS | Continuity of Care Document ---
Author Name Unknown Organization [facility] Address [address] [address]- Care Team Providers Care Geochemist Name Role Phone Sadaf Dawkins MD Primary Care Physician Encounter [facility] Date(s): 04/27/20 - 05/27/20 [facility] [address] [address]- [facility] Allergies, Adverse Reactions, Alerts Substance Reaction Severity Status Milk Products Resolved Pork Active Immunizations Given and Recorded Vaccine Date Status Refusal Reason tetanus/diphtheria/pertussis, acel(Tdap) 10/24/13 Given Medications Abilify 10 mg oral tablet 10 mg, 1, tablet, By Mouth, Daily, # 30 tablet, Refills 0, Tot. Refills 0, Maintenance, 05/22/20 14:30:00 EDT, Route to Pharmacy Electronically, [facility] #[id number], 168, cm, 05/22/20 14:15:00 EDT, Height, 83.7, kg, 04/29/20 15:56:00 EDT, Dry... Start Date: 05/22/20 Status: Ordered Actigall 300 mg oral capsule 300 mg, 1, capsule, By Mouth, 3 times a day, # 60 capsule, Refills 1, Tot. Refills 1, Maintenance, 04/29/20 16:07:00 EDT, Route to Pharmacy Electronically, [facility] #[id number], 168, cm, 04/29/20 15:56:00 EDT, Height, 83.7, kg, 04/29/20 15:56:0... Start Date: 04/29/20 Status: Ordered albuterol CFC free 90 mcg/inh inhalation aerosol 2, puffs, Inhalation, 4 times a day, PRN, # 25 Gm, Refills 5, Tot. Refills 5, Maintenance, 01/09/2018:29:00 EDT, Aerosol, Route to Pharmacy Electronically, [id number], [facility] #[id number], 168, cm, 01/10/20 15:21:00... Start Date: 01/10/20 Status: Ordered Plus Iron oral tablet 1 tablet, By Mouth, Daily, # 30 tablet, 11 Refills, Maintenance, 05/22/20 14:31:00 EDT, Tablet, [facility] #[id number], 1 tablet By Mouth Daily, 168, cm, 05/22/20 14:15:00 EDT, Height, 83.7, kg,04/29/20 15:56:00 EDT, Dry Weight Start Date: 05/22/20 Status: Ordered promethazine 12.5 mg rectal suppository 1 supp = 12.5 mg, Rectally, Every 6 hours, PRN for nausea/vomiting, # 40 supp, 0 Refills, Maintenance, 03/25/20 14:05:00 EDT, Suppository, [facility] #[id number], 168, cm, 03/25/20 13:36:00 EDT,Height, 84, kg, 01/23/20 0:53:00 EDT, Dry Weight Start Date: 03/25/20 Status: Ordered Zofran 4 mg oral tablet See Instructions, 1 tablet By Mouth Daily, # 20 each, 1 Refills, Maintenance, 05/12/20 16:49:00 EDT, [facility] #[id number], 168, cm, 04/29/20 15:56:00 EDT, Height, 83.7, [...] maternal age) multigravida 35+(Confirmed) Active Care Management [facility] , N[facility] [phone](Confirmed) Active Posttraumatic stress disorder(Confirmed) Active (Confirmed) Active [...]
--- OUTSIDE RECORDS SUMMARY | 2023-01-04 21:39 | XMS_ITS | Continuity of Care Document ---
Author Name Unknown Organization [facility] Address [address] [place] [address], [address] [place] [address]- Care Team Providers Care Content Administrator Name Role Phone Juancho WOLF, Sadaf Primary Care Physician [place] [facility] [place](s): 05/26/20 - 06/02/20 [facility] [address] [facility], [address] [place] [address]- [facility] Attending Physician: Orville Tavares MD Admitting Physician: Montrell WOLF, Lizy Cunningham Referring Physician: Amanda Rosario CNM Allergies, Adverse Reactions, Alerts Substance Reaction Severity Status Milk Products Resolved Pork Active Immunizations Given and Recorded Vaccine Date Status Refusal Reason tetanus/diphtheria/pertussis, acel(Tdap) 10/24/13 Given Medications Abilify 10 mg oral tablet 10 mg, 1, tablet, By Mouth, Daily, # 30 tablet, Refills 0, Tot. Refills 0, Maintenance, 05/22/20 14:30:00 EDT, Route to Pharmacy Electronically, [facility] #[id number], 168, cm, 05/22/20 14:15:00 EDT, Height, 83.7, kg, 04/29/20 15:56:00 EDT, Dry... Start Date: 05/22/20 Status: Ordered Actigall 300 mg oral capsule 300 mg, 1, capsule, By Mouth, 3 times a day, # 90 capsule, Refills 1, Tot. Refills 1, Maintenance, 05/29/20 13:47:00 EDT, Route to Pharmacy Electronically, [facility] #[id number], 168, cm, 05/26/20 15:33:00 EDT, Height, 83.58, kg, 05/26/20 15:33:... Start Date: 05/29/20 Status: Ordered albuterol CFC free 90 mcg/inh inhalation aerosol 2, puffs, Inhalation, 4 times a day, PRN, # 25 Gm, Refills 5, Tot. Refills 5, Maintenance, 01/09/2018:29:00 EDT, Aerosol, Route to Pharmacy Electronically, [id number], [facility] #[id number], 168, cm, 01/10/20 15:21:00... Start Date: 01/10/20 Status: Ordered Plus Iron oral tablet 1 tablet, By Mouth, Daily, # 30 tablet, 11 Refills, Maintenance, 05/22/20 14:31:00 EDT, Tablet, [facility] #[id number], 1 tablet By Mouth Daily, 168, cm, 05/22/20 14:15:00 EDT, Height, 83.7, kg,04/29/20 15:56:00 EDT, Dry Weight Start Date: 05/22/20 Status: Ordered promethazine 12.5 mg rectal suppository 1 supp = 12.5 mg, Rectally, Every 6 hours, PRN for nausea/vomiting, # 40 supp, 1 Refills, Maintenance, 05/29/20 13:45:00 EDT, Suppository, [facility] #[id number], 168, cm, 05/26/20 15:33:00 EDT,Height, 83.58, kg, 05/26/20 15:33:00 EDT, Dry Weight Start Date: 05/29/20 Status: Ordered Zofran 4 mg oral tablet See Instructions, 1 tablet By Mouth Daily, # 20 each, 1 Refills, Maintenance, 05/12/20 16:49:00 EDT, [facility] #[id number], 168, cm, 04/29/20 15:56:00 EDT, Height, 83.7, [...] maternal age) multigravida 35+(Confirmed) Active Care Management [facility] , [facility] [phone](Confirmed) Active Posttraumatic stress disorder(Confirmed) Active (Confirmed) Active [...]
--- OUTSIDE RECORDS SUMMARY | 2023-01-04 21:39 | XMS_ITS | Continuity of Care Document ---
Author Name Unknown Organization [facility] [place] Address [address] [place] [address]- Care Team Providers Care Pantographer Name Role Phone Checo John Primary Care Physician Encounter [facility] Date(s): 02/21/22 - 03/23/22 [facility] [place] [address] [place], [place] [address] Allergies, Adverse Reactions, Alerts Substance Reaction Severity Status Pork Active Milk Products Resolved Immunizations Given and Recorded Vaccine Date Status Refusal Reason SARS-CoV-2 (COVID-19) mRNA-1273 vaccine 08/28/21 R ecorded SARS-CoV-2 (COVID-19) mRNA-1273 vaccine 07/31/21 R ecorded tetanus/diphtheria/pertussis, acel(Tdap) 10/24/13 Given Medications albuterol CFC free 90 mcg/inh inhalation aerosol 2, puffs, Inhalation, 4 times a day, PRN, # 1 each, Refills 11, Tot. Refills 11, Maintenance, 08/20/21 16:07:00 EST, Aerosol, Route to Pharmacy Electronically, [id number], [facility] #[id number], 168, cm, 08/20/21 15:40:... Start Date: 08/20/21 [...] [facility] Care Management [facility] , Scarlett Walton [phone](Confirmed) Active Posttraumatic stress disorder(Confirmed) Active (Confirmed) Active Urinary incontinence(Confirmed) Active Ventricular ectopy(Confirmed) Active 1Hx suicide attempt Social History Social History Type Response Smoking Status Former smoker, quit more than 30 days ago entered on: 11/11/21 Sex 1Has been off since 2006
--- OUTSIDE RECORDS SUMMARY | 2023-01-04 21:39 | XMS_ITS | Continuity of Care Document ---
Author Name Unknown Organization [facility] ter Address [address] [place] [address]- Care Team Providers Care Quantity Surveyor Name Role Phone Sadaf Dawkins MD Primary Care Physician Encounter [facility] [place] Date(s): 02/02/20 - 02/06/[address] [address] [facility] Encounter Diagnosis Agitation(Final) - 02/02/20 Agitation(Final) - 02/02/20 Acute lower UTI(Final) - 02/04/20 Discharge Disposition: A-D/C Home Attending Physician: Norman Burkett MD Admitting Physician: Norman Burkett MD Referring Physician: Not on Staff, Referring MD Allergies, Adverse Reactions, Alerts Substance Reaction Severity Status Milk Products Resolved Pork Active Immunizations Given and Recorded Vaccine Date Status Refusal Reason tetanus/diphtheria/pertussis, acel(Tdap) 10/24/13 Given Medications Abilify 5 mg oral tablet 5 mg, 1, tablet, By Mouth, Daily, # 30 tablet, Refills 1, Tot. Refills 1, Soft Stop, 02/06/20 10:57:00 EDT, Print Requisition Start Date: 02/06/20 Stop Date: 04/06/20 Status: Ordered acetaminophen 325 mg oral tablet 650 mg, 2, tablet, By Mouth, Every 4 hours, PRN, # 30 tablet, Refills 0, Tot. Refills 0, Acute 10/08/20 10:34:00 EST, Pain , Mild, 01/23/20 10:33:00 EDT, Print Requisition Start Date: 01/23/20 Stop Date: 10/08/20 Status: Ordered albuterol CFC free 90 mcg/inh inhalation aerosol 2, puffs, Inhalation, 4 times a day, PRN, # 25 Gm, Refills 5, Tot. Refills 5, Maintenance, 01/09/2018:29:00 EDT, Aerosol, Route to Pharmacy Electronically, [id number], [facility] #[id number], 168, cm, 01/10/20 15:21:00... Start Date: 01/10/20 Status: Ordered cephalexin monohydrate 500 mg oral capsule 1 capsule = 500 mg, By Mouth, Every 6 hours, for 5 days, # 20 capsule, 0 Refills, Acute 02/11/20 9:59:00 EDT, 02/06/20 9:59:00 EDT, Capsule Start Date: 02/06/20 Stop Date: 02/11/20 Status: Ordered Knee Immobilizer See Instructions, # 1 Unknown, Maintenance, wear as needed on left knee, 01/23/20 13:02:00 EDT, Compound Start Date: 01/23/20 Status: Ordered Miconazole 7 vaginal suppository 1 sprays, Vaginally, Daily at bedtime, # 7 supp, 0 Refills, Maintenance, 01/10/20 18:30:00 EDT, Suppository, [facility] #[id number], 1 sprays Vaginally Daily at bedtime, 168, cm, 01/10/20 15:21:00 EDT, Height, 88.5, kg, 01/08/20 11:24:00 EDT, Dry... Start Date: 01/10/20 Status: Ordered Plus Iron oral tablet 1 tablet, By Mouth, Daily, # 30 tablet, 11 Refills, Maintenance, 01/10/20 18:29:00 EDT, Tablet, [facility] #[id number], 1 tablet By Mouth Daily, 168, cm, 01/10/20 15:21:00 EDT, Height, 88.5, kg,01/08/20 11:24:00 EDT, Dry Weight Start Date: 01/10/20 Status: Ordered shoe insoles shoe insoles, See Instructions, # 2 each, Refills 0, Tot. Refills 0, Maintenance, dx: foot pain ICD10: M79.672 duration: 99 weeks, 05/02/19 17:41:54 EDT, Compound Start Date: 05/02/19 Status: Ordered Walker See Instructions, # 1 Unknown, Maintenance, wheeled walker for use as needed for walking, 01/23/20 15:07:00 EDT, Compound Start Date: 01/23/20 Status: Ordered Problem List Condition Effective Dates Status Health Status Inform ant Anxiety(Confirmed) Active Asthma(Confirmed) Active Bipolar disorder (manic depression)(Confirmed) 1 Active Chronic eczema(Confirmed) Active History of depression(Confirmed) Active History of abnormal cervical Pap smear(Confirmed) Active History of marijuana use(Confirmed) Active Irritable bowel(Confirmed) Active Migraine(Confirmed) Active AMA (advanced maternal age) multigravida 35+(Confirmed) Active Care Management [facility] Nela CC [phone](Confirmed) Active Posttraumatic stress disorder(Confirmed) Active (Confirmed) Active Sarcoid(Confirmed) 2 Active Urinary incontinence(Confirmed) Active 1Hx suicide attempt 2Possible dx sarcoid. Hx recurrent right uveitis. Elevated MELISSA level. PET w/ increased uptake in parotids. Results Orders for Microbiology Reports Name Date Urine Culture (URINE CULTURE) 02/04/20 Microbiology Reports TEST:Urine Culture STATUS:Auth (Verified) BODY SITE: SOURCE:URINE COLLECTED DATE/TIME:02/04/20 1:20 AM Urine Culture SPECIMEN DESCRIPTION : URINE SPECIAL REQUESTS : NONE CULTURE : >100,000 COL/ML STREPTOCOCCI, GR.B BETA HEMOLYTIC ISOLATED SUSCEPTIBILITY TESTING NOT ROUTINELY PERFORMED ON THIS ISOLATE. REPORT STATUS : FINAL 02/05/2020 Vital Signs Most recent to oldest [Reference Range]: 1 2 3 Oxygen Saturation [94-100 %] 100 % (02/06/20 6:54 AM) 100 % (02/05/20 10:40 PM) 99 % (02/05/20 2:01 PM) Pulse Rate [55-90 bpm] 83 bpm (02/06/20 6:54 AM) 103 bpm *H* (02/05/20 10:40 PM) 66 bpm (02/05/20 2:01 PM) Blood Pressure [90-138/55-84 mm Hg] 93/51mm Hg (02/06/20 6:54 AM) 99/68mm Hg (02/05/20 10:40 PM) 98/58mm Hg (02/05/20 2:01 PM) Respiratory Rate [16-30 br/min] 16 br/min (02/06/20 6:54 AM) 18 br/min (02/05/20 10:40 PM) 18 br/min (02/05/20 2:01 PM) Temperature [96.8-100.4 DegF] 98.2 DegF (02/06/20 6:54 AM) 97.5 DegF (02/05/20 10:40 PM) 98 DegF (02/05/20 2:01 PM) Mode of Delivery (Oxygen) Room air (02/06/20 6:54 AM) Room air (02/05/20 10:40 PM) Room air (02/05/20 2:01 PM) Blood pressure sites Arm, right (02/06/20 6:54 AM) Arm, left (02/05/20 10:40 PM) Arm, right (02/05/20 2:01 PM) Temperature Route Oral (02/06/20 6:54 AM) Oral (02/05/20 10:40 PM) Oral (02/05/20 2:01 PM) Social History Social History Type Response Smoking Status Never (less than 100 in lifetime); Tobacco user in household: No entered on: 01/08/20 Sex Female 1Has been off since 2006
--- OUTSIDE RECORDS SUMMARY | 2023-01-04 21:39 | XMS_ITS | Continuity of Care Document ---
Author Name Unknown Organization [facility] [place] Address [address] [place] [address]- Care Team Providers Care Housekeeping Coordinator Name Role Phone Checo John Primary Care Physician [phone] Encounter [facility] [place] Date(s): 11/11/21 - 12/11/21 [facility] [address] [place] [address]- Allergies, Adverse Reactions, Alerts Substance Reaction Severity [...] 16:07:00 EST, Aerosol, Route to Pharmacy Electronically, [id number], [facility] #[id number], 168, cm, 08/20/21 15:40:... Start Date: 08/20/21 [...] multigravida 35+(Confirmed) Active Obese class I(Confirmed) Active [facility] Care Management [facility] , Scarlett Anton [phone](Confirmed) Active Posttraumatic stress disorder(Confirmed) Active (Confirmed) Active [...]
--- OUTSIDE RECORDS SUMMARY | 2023-01-04 21:39 | XMS_ITS | Continuity of Care Document ---
Author Name Unknown Organization [facility] Address [address] [place], [place] [id number]- Care Team Providers Care Underwriting Manager Name Role Phone Checo John Primary Care Physician Encounter [facility] Date(s): 10/18/21 - 12/08/21 [facility] [address] [place] [address]- Attending Physician: Checo John Allergies, Adverse Reactions, Alerts [...] 16:07:00 EST, Aerosol, Route to Pharmacy Electronically, [id number], [facility] #[id number], 168, cm, 08/20/21 15:40:... Start Date: 08/20/21 [...] multigravida 35+(Confirmed) Active Obese class I(Confirmed) Active [facility] Care Management [facility] , Scarlett Anton [phone](Confirmed) Active Posttraumatic stress disorder(Confirmed) Active (Confirmed) Active [...]
--- OUTSIDE RECORDS SUMMARY | 2023-01-04 21:39 | XMS_ITS | Continuity of Care Document ---
Author Name Unknown Organization [facility] Address [address] [place] [address], [address] [place] [address]- Care Team Providers Care Tieing Machine Operator Name Role Phone Sadaf Dawkins MD Primary Care Physician [place] [facility] [place] - 06/28/20 [facility] [address] [facility] [place] [address]- [facility] Attending Physician: Aubrey WOLF, Karuna Cunningham Allergies, Adverse Reactions, Alerts Substance Reaction Severity Status Milk Products Resolved Pork Active Immunizations Given and Recorded Vaccine Date Status Refusal Reason tetanus/diphtheria/pertussis, acel(Tdap) 10/24/13 Given Medications Abilify 10 mg oral tablet 10 mg, 1, tablet, By Mouth, Daily, # 30 tablet, Refills 0, Tot. Refills 0, Maintenance, 05/22/20 14:30:00 EDT, Route to Pharmacy Electronically, [facility] #[id number], 168, cm, 05/22/20 14:15:00 EDT, Height, 83.7, kg, 04/29/20 15:56:00 EDT, Dry... Start Date: 05/22/20 Status: Ordered Actigall 300 mg oral capsule 300 mg, 1, capsule, By Mouth, 3 times a day, # 90 capsule, Refills 1, Tot. Refills 1, Maintenance, 05/29/20 13:47:00 EDT, Route to Pharmacy Electronically, [facility] #[id number], 168, cm, 05/26/20 15:33:00 EDT, Height, 83.58, kg, 05/26/20 15:33:... Start Date: 05/29/20 Status: Ordered albuterol CFC free 90 mcg/inh inhalation aerosol 2, puffs, Inhalation, 4 times a day, PRN, # 25 Gm, Refills 5, Tot. Refills 5, Maintenance, 01/09/2018:29:00 EDT, Aerosol, Route to Pharmacy Electronically, [id number], [facility] #[id number], 168, cm, 01/10/20 15:21:00... Start Date: 01/10/20 Status: Ordered ibuprofen 600 mg oral tablet 600 mg, 1, tablet, By Mouth, 4 times a day, PRN, # 40 tablet, Refills 0, Tot. Refills 0, Maintenance, Pain, 06/10/20 10:28:00 EDT, Route to Pharmacy Electronically, [facility] #[id number], 168, cm, 06/10/20 9:28:00 EDT, Height, 83.58, kg, ... Start Date: 06/10/20 Status: Ordered Plus Iron oral tablet 1 tablet, By Mouth, Daily, # 30 tablet, 11 Refills, Maintenance, 05/22/20 14:31:00 EDT, Tablet, [facility] #[id number], 1 tablet By Mouth Daily, 168, cm, 05/22/20 14:15:00 EDT, Height, 83.7, kg,04/29/20 15:56:00 EDT, Dry Weight Start Date: 05/22/20 Status: Ordered promethazine 12.5 mg rectal suppository 1 supp = 12.5 mg, Rectally, Every 6 hours, PRN for nausea/vomiting, # 40 supp, 1 Refills, Maintenance, 05/29/20 13:45:00 EDT, Suppository, [facility] #[id number], 168, cm, 05/26/20 15:33:00 EDT,Height, 83.58, kg, [...] each, 1 Refills, Maintenance, 05/12/20 16:49:00 EDT, [facility] #[id number], 168, cm, 04/29/20 15:56:00 EDT, Height, 83.7, [...] maternal age) multigravida 35+(Confirmed) Active Care Management [facility] [phone](Confirmed) Active Posttraumatic stress disorder(Confirmed) Active (Confirmed) Active [...]
--- OUTSIDE RECORDS SUMMARY | 2023-01-04 21:39 | XMS_ITS | Continuity of Care Document ---
Author Name Unknown Organization [facility] Address [address] [place] [address]- Care Team Providers Care Document Manager Name Role Phone Sadaf Dawkins MD Primary Care Physician [phone] [place] [facility] [place]s): 04/24/20 - 05/24/20 [facility] [address] [address]- [facility] Allergies, Adverse Reactions, Alerts Substance Reaction Severity Status Pork Active Milk Products Resolved Immunizations Given and Recorded Vaccine Date Status Refusal Reason tetanus/diphtheria/pertussis, acel(Tdap) 10/24/13 Given Medications Abilify 10 mg oral tablet 10 mg, 1, tablet, By Mouth, Daily, # 30 tablet, Refills 0, Tot. Refills 0, Maintenance, 05/22/20 14:30:00 EDT, Route to Pharmacy Electronically, [facility] #[id number], 168, cm, 05/22/20 14:15:00 EDT, Height, 83.7, kg, 04/29/20 15:56:00 EDT, Dry... Start Date: 05/22/20 Status: Ordered Actigall 300 mg oral capsule 300 mg, 1, capsule, By Mouth, 3 times a day, # 60 capsule, Refills 1, Tot. Refills 1, Maintenance, 04/29/20 16:07:00 EDT, Route to Pharmacy Electronically, [facility] #[id number], 168, cm, 04/29/20 15:56:00 EDT, Height, 83.7, kg, 04/29/20 15:56:0... Start Date: 04/29/20 Status: Ordered albuterol CFC free 90 mcg/inh inhalation aerosol 2, puffs, Inhalation, 4 times a day, PRN, # 25 Gm, Refills 5, Tot. Refills 5, Maintenance, 01/09/2018:29:00 EDT, Aerosol, Route to Pharmacy Electronically, [id number], [facility] #[id number], 168, cm, 01/10/20 15:21:00... Start Date: 01/10/20 Status: Ordered Plus Iron oral tablet 1 tablet, By Mouth, Daily, # 30 tablet, 11 Refills, Maintenance, 05/22/20 14:31:00 EDT, Tablet, [facility] #[id number], 1 tablet By Mouth Daily, 168, cm, 05/22/20 14:15:00 EDT, Height, 83.7, kg,04/29/20 15:56:00 EDT, Dry Weight Start Date: 05/22/20 Status: Ordered promethazine 12.5 mg rectal suppository 1 supp = 12.5 mg, Rectally, Every 6 hours, PRN for nausea/vomiting, # 40 supp, 0 Refills, Maintenance, 03/25/20 14:05:00 EDT, Suppository, [facility] #[id number], 168, cm, 03/25/20 13:36:00 EDT,Height, 84, kg, 01/23/20 0:53:00 EDT, Dry Weight Start Date: 03/25/20 Status: Ordered Zofran 4 mg oral tablet See Instructions, 1 tablet By Mouth Daily, # 20 each, 1 Refills, Maintenance, 05/12/20 16:49:00 EDT, [facility] #[id number], 168, cm, 04/29/20 15:56:00 EDT, Height, 83.7, [...] 35+(Confirmed) Active Care Management [facility] , Nela Byrd [facility] [phone](Confirmed) Active Posttraumatic stress disorder(Confirmed) Active (Confirmed) Active [...]
--- OUTSIDE RECORDS SUMMARY | 2023-01-04 21:39 | XMS_ITS | Continuity of Care Document ---
Author Name Unknown Organization [facility] Address [address] [place] [address]- Care Team Providers Care Custodial Worker Name Role Phone Checo John Primary Care Physician [place] [facility] [place] - 06/02/22 [facility] [address] [place] [address] Allergies, Adverse Reactions, Alerts Substance Reaction Severity [...] 16:07:00 EST, Aerosol, Route to Pharmacy Electronically, [id number], [id number], 168, cm, 08/20/21 15:40:... Start Date: 08/20/21 [...] Obese class I(Confirmed) Active N Care Management [facility] , Scarlett Walton [phone](Confirmed) Active Posttraumatic stress disorder(Confirmed) Active (Confirmed) Active Urinary incontinence(Confirmed) Active Ventricular ectopy(Confirmed) Active 1Hx suicide attempt Social History Social History Type Response Smoking Status Former smoker, quit more than 30 days ago entered on: 11/11/21 Sex 1Has been off since 2006 Care Team Personnel Name: Checo John Address: [address] [place] [address] [place], [place] [address]
--- OUTSIDE RECORDS SUMMARY | 2023-01-04 21:39 | XMS_ITS | Continuity of Care Document ---
Author Name Unknown Organization [facility] Address [address] [place] [address]- Care Team Providers Care Electrical Solderer Name Role Phone Sadaf Dawkins MD Primary Care Physician [phone] Encounter [facility] [place] Date(s): 10/29/20 - 11/28/20 [facility] [address] [place] [address]- Attending Physician: Ora Brown Admitting Physician: Ora [...] 05/22/20 14:30:00 EDT, Route to Pharmacy Electronically, [facility] #[id number], 168, cm, 05/22/20 14:15:00 EDT, Height, 83.7, kg, 04/29/20 15:56:00 EDT, Dry... Start Date: 05/22/20 Status: Ordered Actigall 300 mg oral capsule 300 mg, 1, capsule, By Mouth, 3 times a day, # 90 capsule, Refills 1, Tot. Refills 1, Maintenance, 05/29/20 13:47:00 EDT, Route to Pharmacy Electronically, [facility] #[id number], 168, cm, 05/26/20 15:33:00 EDT, Height, 83.58, kg, 05/26/20 15:33:... Start Date: 05/29/20 Status: Ordered albuterol CFC free 90 mcg/inh inhalation aerosol 2, puffs, Inhalation, 4 times a day, PRN, # 25 Gm, Refills 5, Tot. Refills 5, Maintenance, 01/09/2018:29:00 EDT, Aerosol, Route to Pharmacy Electronically, [id number], [facility] #[id number], 168, cm, 01/10/20 15:21:00... Start Date: 01/10/20 Status: Ordered Diflucan 150 mg oral tablet 1 tablet = 150 mg, By Mouth, Once, # 1 tablet, 0 Refills, Soft Stop, 11/11/20 13:24:00 EST, Tablet,[facility] #[id number], Partial fill upon patient request if the prescription is for a schedule II opioid drug., 168, cm, 10/29/20 9:46:00 EST, He... Start Date: 11/11/20 Status: Ordered ibuprofen 600 mg oral tablet 600 mg, 1, tablet, By Mouth, 4 times a day, PRN, # 40 tablet, Refills 0, Tot. Refills 0, Maintenance, Pain, 06/10/20 10:28:00 EDT, Route to Pharmacy Electronically, [facility] #[id number], 168, cm, 06/10/20 9:28:00 EDT, Height, 83.58, kg, ... Start Date: 06/10/20 Status: Ordered Plus Iron oral tablet 1 tablet, By Mouth, Daily, # 30 tablet, 11 Refills, Maintenance, 05/22/20 14:31:00 EDT, Tablet, [facility] #[id number], 1 tablet By Mouth Daily, 168, cm, 05/22/20 14:15:00 EDT, Height, 83.7, kg,04/29/20 15:56:00 EDT, Dry Weight Start Date: 05/22/20 Status: Ordered promethazine 12.5 mg rectal suppository 1 supp = 12.5 mg, Rectally, Every 6 hours, PRN for nausea/vomiting, # 40 supp, 1 Refills, Maintenance, 05/29/20 13:45:00 EDT, Suppository, [facility] #06023, 168, cm, 05/26/20 15:33:00 EDT,Height, 83.58, kg, [...] each, 1 Refills, Maintenance, 05/12/20 16:49:00 EDT, [facility] #[id number], 168, cm, 04/29/20 15:56:00 EDT, Height, 83.7, [...] Management [facility] [phone](Confirmed) Active Posttraumatic stress disorder(Confirmed) Active (Confirmed) Active [...]
--- OUTSIDE RECORDS SUMMARY | 2023-01-04 21:39 | XMS_ITS | Continuity of Care Document ---
Author Name Unknown Organization [facility] Address [address] [address]- Care Team Providers Care Immunology Teacher Name Role Phone Sadaf Dawkins MD Primary Care Physician En[place] [facility] [place] [facility] [id number] Date(s): 04/16/21 - 05/23/21 [facility] [address] [address]- Attending Physician: Sadaf Dawkins MD Admitting Physician: [...] 14:17:00 EDT, Aerosol, Route to Pharmacy Electronically, [id number], [facility] #[id number], 168, cm, 04/14/21 14:05:... Start Date: 04/14/21 [...] age) multigravida 35+(Confirmed) Active Care Management [facility] Taylerman (Confirmed) Active Posttraumatic stress [...]
--- OUTSIDE RECORDS SUMMARY | 2023-01-04 21:39 | XMS_ITS | Continuity of Care Document ---
Author Name Unknown Organization [facility] [place] Address [address] [place] [address]- Care Team Providers Care Inspector Materials And Processes Name Role Phone Checo John Primary Care Physician [facility] Date(s): 01/20/22 - 02/19/22 [facility] [address] [place] [address]- Allergies, Adverse Reactions, Alerts Substance Reaction Severity [...] 16:07:00 EST, Aerosol, Route to Pharmacy Electronically, [id number], [facility][id number], 168, cm, 08/20/21 15:40:... Start Date: 08/20/21 [...] Care Management [facility] , Scarlett Walton [phone](Confirmed) Active Posttraumatic stress disorder(Confirmed) Active (Confirmed) Active [...]
--- OUTSIDE RECORDS SUMMARY | 2023-01-04 21:39 | XMS_ITS | Continuity of Care Document ---
Author Name Unknown Organization [facility] Address [address] [place] [address]- Care Team Providers Care Medical Coding Specialist Name Role Phone Sadaf Dawkins MD Primary Care Physician [place] [facility] [place](s): 06/24/21 - 07/24/[address] [address] Allergies, Adverse Reactions, Alerts Substance Reaction Severity Status Milk Products Resolved Pork Active Immunizations Given and Recorded Vaccine Date Status Refusal Reason tetanus/diphtheria/pertussis, acel(Tdap) 10/24/13 Given Medications albuterol CFC free 90 mcg/inh inhalation aerosol 2, puffs, Inhalation, 4 times a day, PRN, # 1 each, Refills 11, Tot. Refills 11, Maintenance, 04/14/21 14:17:00 EDT, Aerosol, Route to Pharmacy Electronically, [id number], [facility] #[id number], 168, cm, 04/14/21 14:05:... Start Date: 04/14/21 [...] maternal age) multigravida 35+(Confirmed) Active Care Management [facility] Taylerman (Confirmed) Active Posttraumatic stress disorder(Confirmed) Active [...]
--- OUTSIDE RECORDS SUMMARY | 2023-01-04 21:39 | XMS_ITS | Continuity of Care Document ---
Author Name Unknown Organization [facility] Address [address] [place] [address]- Care Team Providers Care Political Science Faculty Member Name Role Phone Sadaf Dawkins MD Primary Care Physician [phone] Encounter [facility] Date(s): 04/27/20 - 04/27/[address] [address]- [facility] Discharge Disposition: A-D/C Home Attending Physician: Debbie Saxena MD Admitting Physician: Debbie Saxena MD Referring Physician: Debbie Saxena MD Allergies, Adverse Reactions, Alerts Substance Reaction Severity Status Milk Products Resolved Pork Active Immunizations Given and Recorded Vaccine Date Status Refusal Reason tetanus/diphtheria/pertussis, acel(Tdap) 10/24/13 Given Medications Abilify 10 mg oral tablet 10 mg, 1, tablet, By Mouth, Daily, # 30 tablet, Refills 0, Tot. Refills 0, Maintenance, 04/15/20 15:25:00 EDT, Route to Pharmacy Electronically, [facility] #[id number], 168, cm, 04/15/20 15:17:00 EDT, Height, 85.4, kg, 04/15/20 15:17:00 EDT, Dry... Start Date: 04/15/20 Status: Ordered acetaminophen 325 mg oral tablet [...] 01/09/2018:29:00 EDT, Aerosol, Route to Pharmacy Electronically, [id number], [facility] #[id number], 168, cm, 01/10/20 15:21:00... Start Date: 01/10/20 Status: Ordered Knee Immobilizer See Instructions, # 1 Unknown, Maintenance, wear as needed on left knee, 01/23/20 13:02:00 EDT, Compound Start Date: 01/23/20 Status: Ordered Miconazole 7 vaginal suppository 1 sprays, Vaginally, Daily at bedtime, # 7 supp, 0 Refills, Maintenance, 01/10/20 18:30:00 EDT, Suppository, [facility] #[id number], 1 sprays Vaginally Daily at bedtime, 168, cm, 01/10/20 15:21:00 EDT, Height, 88.5, kg, 01/08/20 11:24:00 EDT, Dry... Start Date: 01/10/20 Status: Ordered Plus Iron oral tablet 1 tablet, By Mouth, Daily, # 30 tablet, 11 Refills, Maintenance, 01/10/20 18:29:00 EDT, Tablet, [facility] #[id number], 1 tablet By Mouth Daily, 168, cm, 01/10/20 15:21:00 EDT, Height, 88.5, kg,01/08/20 11:24:00 EDT, Dry Weight Start Date: 01/10/20 Status: Ordered promethazine 12.5 mg rectal suppository 1 supp = 12.5 mg, Rectally, Every 6 hours, PRN for nausea/vomiting, # 40 supp, 0 Refills, Maintenance, 03/25/20 14:05:00 EDT, Suppository, [facility] #[id number], 168, cm, 03/25/20 13:36:00 EDT,Height, 84, kg, 01/23/20 0:53:00 EDT, Dry Weight Start Date: 03/25/20 Status: Ordered Reglan 10 mg oral tablet 1 tablet = 10 mg, By Mouth, 4 times a day, for 21 days, 30 minutes before meals and at bedtime, # 84 tablet, 2 Refills, Acute 06/29/20 15:31:00 EDT, 04/27/20 15:31:00 EDT, Tablet, [facility] #[id number], 168, cm, 04/15/20 15:17:00 EDT, Height, 85... Start Date: 04/27/20 Stop Date: 06/29/20 Status: Ordered shoe insoles shoe insoles, See Instructions, # 2 each, Refills 0, Tot. Refills 0, Maintenance, dx: foot pain ICD10: M79.672 duration: 99 weeks, 05/02/19 17:41:54 EDT, Compound Start Date: 05/02/19 Status: Ordered Unisom 25 mg oral tablet 1 tablet = 25 mg, By Mouth, Daily at bedtime, PRN for sleep, 15 to 30 minutes before bed Do not usewithin 4 hours of phenergan (promethrazine), # 16 tablet, 1 Refills, Acute 05/28/20 15:33:00 EDT, 04/27/20 15:31:00 EDT, Tablet, [facility]... Start Date: 04/27/20 Stop Date: 05/28/20 Status: Ordered Vitamin B6 50 mg oral tablet 50 mg, 1, tablet, By Mouth, Daily, for 21 days, # 21 tablet, Refills 2, Tot. Refills 2, Acute 06/29/20 15:32:00 EDT, 04/27/20 15:32:00 EDT, Route to Pharmacy Electronically, [facility] #[id number], 168, cm, 04/15/20 15:17:00 EDT, Height, 85.4, kg... Start Date: 04/27/20 Stop Date: 06/29/20 Status: Ordered Walker See Instructions, # 1 Unknown, Maintenance, wheeled walker for use as needed for walking, 01/23/20 15:07:00 EDT, Compound Start Date: 01/23/20 Status: Ordered Zofran 4 mg oral tablet See Instructions, 1 tablet By Mouth Daily, # 20 each, 1 Refills, Maintenance, 02/26/20 16:44:00 EDT, [facility] #[id number], 168, cm, 02/26/20 16:17:00 EDT, Height, 84, kg, 01/23/20 0:53:00 EDT,Dry Weight Start Date: 02/26/20 Status: Ordered Problem List Condition Effective Dates Status Health Status Inform ant Anxiety(Confirmed) Active Asthma(Confirmed) Active Bipolar disorder (manic depression)(Confirmed) 1 Active Chronic eczema(Confirmed) Active History of depression(Confirmed) Active History of abnormal cervical Pap smear(Confirmed) Active History of marijuana use(Confirmed) Active Irritable bowel(Confirmed) Active Migraine(Confirmed) Active AMA (advanced maternal age) multigravida 35+(Confirmed) Active Care Management [facility] , [facility] [phone](Confirmed) Active Posttraumatic stress disorder(Confirmed) Active (Confirmed) Active Sarcoid(Confirmed) 2 Active Urinary incontinence(Confirmed) Active 1Hx suicide attempt 2Possible dx sarcoid. Hx recurrent right uveitis. Elevated MELISSA level. PET w/ increased uptake in parotids. Vital Signs Most recent to oldest [Reference Range]: 1 Weight 84.0 kg (04/27/20 11:12 AM) Blood Pressure [90-138/55-84 mm Hg] 111/ 64mm Hg (04/27/20 11:29 AM) Respiratory Rate [16-30 br/min] 20 br/mi n (04/27/20 11:29 AM) Temperature [96.8-100.4 DegF] 98.2 DegF (04/27/20 11:12 AM) Blood pressure sites Arm, right (04/27/20 11:29 AM) Temperature Route Oral (04/27/20 11:12 AM) Weight Obtained Via Standing scale (04/27/20 11:12 AM) Social History Social History Type Response Smoking Status Never (less than 100 in lifetime); Tobacco user in household: No entered on: 01/08/20 Sex Female 1Has been off since 2006
--- OUTSIDE RECORDS SUMMARY | 2023-01-04 21:39 | XMS_ITS | Continuity of Care Document ---
Author Name Unknown Organization [facility] Address [address] [place] [address]- Care Team Providers Care Traffic Engineering Director Name Role Phone Sadaf Dawkins MD Primary Care Physician [place] [facility] [place]/10/[place] - 07/10/[address] [address]- Allergies, Adverse Reactions, Alerts Substance Reaction Severity Status Milk Products Resolved Pork Active Immunizations Given and Recorded Vaccine Date Status Refusal Reason tetanus/diphtheria/pertussis, acel(Tdap) 10/24/13 Given Medications albuterol CFC free 90 mcg/inh inhalation aerosol 2, puffs, Inhalation, 4 times a day, PRN, # 1 each, Refills 11, Tot. Refills 11, Maintenance, 04/14/21 14:17:00 EDT, Aerosol, Route to Pharmacy Electronically, [id number], [facility] #[id number], 168, cm, 04/14/21 14:05:... Start Date: 04/14/21 [...] [facility] (Confirmed) Active Posttraumatic stress [...]
--- OUTSIDE RECORDS SUMMARY | 2023-01-04 21:39 | XMS_ITS | Continuity of Care Document ---
Author Name Unknown Organization [facility] Address [address] [address]- Care Team Providers Care Decorating Kiln Operator Name Role Phone Sadaf Dawkins MD Primary Care Physician Encounter [facility] Date(s): 10/28/20 - 11/27/20 [facility] [address] [address] Allergies, Adverse Reactions, Alerts Substance Reaction Severity Status Milk Products Resolved Pork Active Immunizations Given and Recorded Vaccine Date Status Refusal Reason tetanus/diphtheria/pertussis, acel(Tdap) 10/24/13 Given Medications Abilify 10 mg oral tablet 10 mg, 1, tablet, By Mouth, Daily, # 30 tablet, Refills 0, Tot. Refills 0, Maintenance, 05/22/20 14:30:00 EDT, Route to Pharmacy Electronically, [facility] #[id number], 168, cm, 05/22/20 14:15:00 EDT, Height, 83.7, kg, 04/29/20 15:56:00 EDT, Dry... Start Date: 05/22/20 Status: Ordered Actigall 300 mg oral capsule 300 mg, 1, capsule, By Mouth, 3 times a day, # 90 capsule, Refills 1, Tot. Refills 1, Maintenance, 05/29/20 13:47:00 EDT, Route to Pharmacy Electronically, [facility] #[id number], 168, cm, 05/26/20 15:33:00 EDT, Height, 83.58, kg, 05/26/20 15:33:... Start Date: 05/29/20 Status: Ordered albuterol CFC free 90 mcg/inh inhalation aerosol 2, puffs, Inhalation, 4 times a day, PRN, # 25 Gm, Refills 5, Tot. Refills 5, Maintenance, 01/09/2018:29:00 EDT, Aerosol, Route to Pharmacy Electronically, [id number], [facility] #[id number], 168, cm, 01/10/20 15:21:00... Start Date: 01/10/20 Status: Ordered Diflucan 150 mg oral tablet 1 tablet = 150 mg, By Mouth, Once, # 1 tablet, 0 Refills, Soft Stop, 11/11/20 13:24:00 EST, Tablet,[facility] #[id number], Partial fill upon patient request if the prescription is for a schedule II opioid drug., 168, cm, 10/29/20 9:46:00 EST, He... Start Date: 11/11/20 Status: Ordered ibuprofen 600 mg oral tablet 600 mg, 1, tablet, By Mouth, 4 times a day, PRN, # 40 tablet, Refills 0, Tot. Refills 0, Maintenance, Pain, 06/10/20 10:28:00 EDT, Route to Pharmacy Electronically, [facility] #[id number], 168, cm, 06/10/20 9:28:00 EDT, Height, 83.58, kg, ... Start Date: 06/10/20 Status: Ordered Plus Iron oral tablet 1 tablet, By Mouth, Daily, # 30 tablet, 11 Refills, Maintenance, 05/22/20 14:31:00 EDT, Tablet, [facility] #[id number], 1 tablet By Mouth Daily, 168, cm, 05/22/20 14:15:00 EDT, Height, 83.7, kg,04/29/20 15:56:00 EDT, Dry Weight Start Date: 05/22/20 Status: Ordered promethazine 12.5 mg rectal suppository 1 supp = 12.5 mg, Rectally, Every 6 hours, PRN for nausea/vomiting, # 40 supp, 1 Refills, Maintenance, 05/29/20 13:45:00 EDT, Suppository, [facility] #[id number], 168, cm, 05/26/20 15:33:00 EDT,Height, 83.58, kg, [...] each, 1 Refills, Maintenance, 05/12/20 16:49:00 EDT, [facility] #00401, 168, cm, 04/29/20 15:56:00 EDT, Height, 83.7, [...] Management [facility] [phone](Confirmed) Active Posttraumatic stress disorder(Confirmed) Active (Confirmed) Active [...]
--- OUTSIDE RECORDS SUMMARY | 2023-01-04 21:39 | XMS_ITS | Continuity of Care Document ---
Author Name Unknown Organization [facility] Address [address] [place] [address]- Care Team Providers Care Drier Operator Helper Name Role Phone Checo John Primary Care Physician [phone] [facility] Date(s): 06/27/22 - 07/27/22 [facility] [address], [place] [address] [...] 16:07:00 EST, Aerosol, Route to Pharmacy Electronically, [id number], [facility] #[id number], 168, cm, 08/20/21 15:40:... Start Date: 08/20/21 [...] Refills, Soft Stop, 07/08/22 12:02:00 EDT, Tablet, [facility] #[id number], Partial fill upon patient request if the [...] class I Confirmed Active N Care Management [facility], Scarlett Anton [phone] Confirmed Active Posttraumatic stress disorder Confirmed Active Confirmed Active Urinary incontinence Confirmed Active Ventricular ectopy Confirmed Active 1Hx suicide attempt Social History Social History Type Response Smoking Status Former smoker, quit more than 30 days ago entered on: 11/11/21 Sex 1Has been off since 2006 Patient Care team information Personnel Name: Checo John Address: Address: [address] [place] [address] Primary Care [facility] [address]
--- OUTSIDE RECORDS SUMMARY | 2023-01-04 21:39 | XMS_ITS | Continuity of Care Document ---
Author Name Unknown Organization [facility] Address [address] [place] [address]- Care Team Providers Care Diamond Powder Mixer Name Role Phone Sadaf Dawkins MD Primary Care Physician [phone] [place] [facility] [place] 05/14/20 - 06/25/20 [facility] [address] [address]- [facility] Attending Physician: Not on Staff, Attending MD Referring Physician: Amanda Rosario CNM Allergies, Adverse Reactions, Alerts Substance Reaction Severity Status Milk Products Resolved Pork Active Immunizations Given and Recorded Vaccine Date Status Refusal Reason tetanus/diphtheria/pertussis, acel(Tdap) 10/24/13 Given Medications Abilify 10 mg oral tablet 10 mg, 1, tablet, By Mouth, Daily, # 30 tablet, Refills 0, Tot. Refills 0, Maintenance, 05/22/20 14:30:00 EDT, Route to Pharmacy Electronically, [facility] #[id number], 168, cm, 05/22/20 14:15:00 EDT, Height, 83.7, kg, 04/29/20 15:56:00 EDT, Dry... Start Date: 05/22/20 Status: Ordered Actigall 300 mg oral capsule 300 mg, 1, capsule, By Mouth, 3 times a day, # 90 capsule, Refills 1, Tot. Refills 1, Maintenance, 05/29/20 13:47:00 EDT, Route to Pharmacy Electronically, [facility] #[id number], 168, cm, 05/26/20 15:33:00 EDT, Height, 83.58, kg, 05/26/20 15:33:... Start Date: 05/29/20 Status: Ordered albuterol CFC free 90 mcg/inh inhalation aerosol 2, puffs, Inhalation, 4 times a day, PRN, # 25 Gm, Refills 5, Tot. Refills 5, Maintenance, 01/09/2018:29:00 EDT, Aerosol, Route to Pharmacy Electronically, [id number], [facility] #[id number], 168, cm, 01/10/20 15:21:00... Start Date: 01/10/20 Status: Ordered ibuprofen 600 mg oral tablet 600 mg, 1, tablet, By Mouth, 4 times a day, PRN, # 40 tablet, Refills 0, Tot. Refills 0, Maintenance, Pain, 06/10/20 10:28:00 EDT, Route to Pharmacy Electronically, [facility] #[id number], 168, cm, 06/10/20 9:28:00 EDT, Height, 83.58, kg, ... Start Date: 06/10/20 Status: Ordered Plus Iron oral tablet 1 tablet, By Mouth, Daily, # 30 tablet, 11 Refills, Maintenance, 05/22/20 14:31:00 EDT, Tablet, [facility] #[id number], 1 tablet By Mouth Daily, 168, cm, 05/22/20 14:15:00 EDT, Height, 83.7, kg,04/29/20 15:56:00 EDT, Dry Weight Start Date: 05/22/20 Status: Ordered promethazine 12.5 mg rectal suppository 1 supp = 12.5 mg, Rectally, Every 6 hours, PRN for nausea/vomiting, # 40 supp, 1 Refills, Maintenance, 05/29/20 13:45:00 EDT, Suppository, [facility] #[id number], 168, cm, 05/26/20 15:33:00 EDT,Height, 83.58, kg, [...] each, 1 Refills, Maintenance, 05/12/20 16:49:00 EDT, [facility] #[id number], 168, cm, 04/29/20 15:56:00 EDT, Height, 83.7, [...] maternal age) multigravida 35+(Confirmed) Active Care Management [facility] [phone](Confirmed) Active Posttraumatic stress disorder(Confirmed) Active (Confirmed) Active [...]
--- OUTSIDE RECORDS SUMMARY | 2023-01-04 21:39 | XMS_ITS | Continuity of Care Document ---
Author Name Unknown Organization [facility] Address [address] [place] [address]- Care Team Providers Care Reel Winder Name Role Phone Sadaf Dawkins MD Primary Care Physician Encounter [facility] Date(s): 05/21/21 - 06/20/[address] [address]- Allergies, Adverse Reactions, Alerts Substance Reaction Severity Status Milk Products Resolved Pork Active Immunizations Given and Recorded Vaccine Date Status Refusal Reason tetanus/diphtheria/pertussis, acel(Tdap) 10/24/13 Given Medications albuterol CFC free 90 mcg/inh inhalation aerosol 2, puffs, Inhalation, 4 times a day, PRN, # 1 each, Refills 11, Tot. Refills 11, Maintenance, 04/14/21 14:17:00 EDT, Aerosol, Route to Pharmacy Electronically, [id number], [facility] #[id number], 168, cm, 04/14/21 14:05:... Start Date: 04/14/21 [...]
--- OUTSIDE RECORDS SUMMARY | 2023-01-04 21:39 | XMS_ITS | Continuity of Care Document ---
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 Molding Machine Setter Name Role Phone Sadaf Dawkins MD Primary Care Physician [phone] [place] [facility] Date(s[place] 05/05/20 - 05/12/20 [facility] [address] [facility], [address] [place] [address]- [facility] Attending Physician: Lizy Stock MD Referring Physician: Danyelle Abraham CNM Allergies, Adverse Reactions, Alerts Substance Reaction Severity Status Milk Products Resolved Pork Active Immunizations Given and Recorded Vaccine Date Status Refusal Reason tetanus/diphtheria/pertussis, acel(Tdap) 10/24/13 Given Medications Abilify 10 mg oral tablet 10 mg, 1, tablet, By Mouth, Daily, # 30 tablet, Refills 0, Tot. Refills 0, Maintenance, 05/12/20 16:46:00 EDT, Route to Pharmacy Electronically, [facility] #[id number], 168, cm, 04/29/20 15:56:00 EDT, Height, 83.7, kg, 04/29/20 15:56:00 EDT, Dry... Start Date: 05/12/20 Status: Ordered Abilify 10 mg oral tablet 10 mg, 1, tablet, By Mouth, Daily, # 30 tablet, Refills 0, Tot. Refills 0, Maintenance, 04/15/20 15:25:00 EDT, Route to Pharmacy Electronically, [facility] #[id number], 168, cm, 04/15/20 15:17:00 EDT, Height, 85.4, kg, 04/15/20 15:17:00 EDT, Dry... Start Date: 04/15/20 Status: Ordered acetaminophen 325 mg oral tablet 650 mg, 2, tablet, By Mouth, Every 4 hours, PRN, # 30 tablet, Refills 0, Tot. Refills 0, Acute 10/08/20 10:34:00 EST, Pain , Mild, 01/23/20 10:33:00 EDT, Print Requisition Start Date: 01/23/20 Stop Date: 10/08/20 Status: Ordered Actigall 300 mg oral capsule 300 mg, 1, capsule, By Mouth, 3 times a day, # 60 capsule, Refills 1, Tot. Refills 1, Maintenance, 04/29/20 16:07:00 EDT, Route to Pharmacy Electronically, [facility] #[id number], 168, cm, 04/29/20 15:56:00 EDT, Height, 83.7, kg, 04/29/20 15:56:0... Start Date: 04/29/20 Status: Ordered albuterol CFC free 90 mcg/inh inhalation aerosol 2, puffs, Inhalation, 4 times a day, PRN, # 25 Gm, Refills 5, Tot. Refills 5, Maintenance, 01/09/2018:29:00 EDT, Aerosol, Route to Pharmacy Electronically, [id number], [facility] #[id number], 168, cm, 01/10/20 15:21:00... Start Date: 01/10/20 Status: Ordered Benadryl 25 mg oral capsule 2 capsule = 50 mg, By Mouth, 3 times a day, PRN for itching, # 100 capsule, 0 Refills, Maintenance,04/29/20 16:09:00 EDT, Capsule, [facility] #[id number], 168, cm, 04/29/20 15:56:00 EDT, Height, 83.7, kg, 04/29/20 15:56:00 EDT, Dry Weight Start Date: 04/29/20 Status: Ordered Knee Immobilizer See Instructions, # 1 Unknown, Maintenance, wear as needed on left knee, 01/23/20 13:02:00 EDT, Compound Start Date: 01/23/20 Status: Ordered Miconazole 7 vaginal suppository 1 sprays, Vaginally, Daily at bedtime, # 7 supp, 0 Refills, Maintenance, 01/10/20 18:30:00 EDT, Suppository, [facility] #[id number], 1 sprays Vaginally Daily at bedtime, 168, cm, 01/10/20 15:21:00 EDT, Height, 88.5, kg, 01/08/20 11:24:00 EDT, Dry... Start Date: 01/10/20 Status: Ordered Plus Iron oral tablet 1 tablet, By Mouth, Daily, # 30 tablet, 11 Refills, Maintenance, 01/10/20 18:29:00 EDT, Tablet, [facility] #[id number], 1 tablet By Mouth Daily, 168, cm, 01/10/20 15:21:00 EDT, Height, 88.5, kg,01/08/20 11:24:00 EDT, Dry Weight Start Date: 01/10/20 Status: Ordered promethazine 12.5 mg rectal suppository 1 supp = 12.5 mg, Rectally, Every 6 hours, PRN for nausea/vomiting, # 40 supp, 0 Refills, Maintenance, 03/25/20 14:05:00 EDT, Suppository, [facility] #[id number], 168, cm, 03/25/20 13:36:00 EDT,Height, 84, kg, 01/23/20 0:53:00 EDT, Dry Weight Start Date: 03/25/20 Status: Ordered shoe insoles shoe insoles, See [...] 05/28/20 15:33:00 EDT, 04/27/20 15:31:00 EDT, Tablet, [facility]... Start Date: 04/27/20 Stop Date: 05/28/20 Status: Ordered Vitamin B6 50 mg oral tablet 50 mg, 1, tablet, By Mouth, Daily, for 21 days, # 21 tablet, Refills 2, Tot. Refills 2, Acute 06/29/20 15:32:00 EDT, 04/27/20 15:32:00 EDT, Route to Pharmacy Electronically, [facility] #[id number], 168, cm, 04/15/20 15:17:00 EDT, Height, 85.4, kg... Start Date: 04/27/20 Stop Date: 06/29/20 Status: Ordered Walker See Instructions, # 1 Unknown, Maintenance, wheeled walker for use as needed for walking, 01/23/20 15:07:00 EDT, Compound Start Date: 01/23/20 Status: Ordered Zofran 4 mg oral tablet See Instructions, 1 tablet By Mouth Daily, # 20 each, 1 Refills, Maintenance, 05/12/20 16:49:00 EDT, [facility] #[id number], 168, cm, 04/29/20 15:56:00 EDT, Height, 83.7, [...] maternal age) multigravida 35+(Confirmed) Active Care Management [facility] [phone](Confirmed) Active Posttraumatic stress disorder(Confirmed) Active (Confirmed) Active [...]
--- OUTSIDE RECORDS SUMMARY | 2023-01-04 21:39 | XMS_ITS | Continuity of Care Document ---
Author Name Unknown Organization [facility] Address [address] [place] [address]- Care Team Providers Care Owner Oral Surgeon Name Role Phone Sadaf Dawkins MD Primary Care Physician [place] [facility] [place]/23/21 - 04/22/[address] [address] Allergies, Adverse Reactions, Alerts Substance Reaction Severity Status Milk Products Resolved Pork Active Immunizations Given and Recorded Vaccine Date Status Refusal Reason tetanus/diphtheria/pertussis, acel(Tdap) 10/24/13 Given Medications albuterol CFC free 90 mcg/inh inhalation aerosol 2, puffs, Inhalation, 4 times a day, PRN, # 1 each, Refills 11, Tot. Refills 11, Maintenance, 04/14/21 14:17:00 EDT, Aerosol, Route to Pharmacy Electronically, [id number], [facility] #[id number], 168, cm, 04/14/21 14:05:... Start Date: 04/14/21 [...] maternal age) multigravida 35+(Confirmed) Active Care Management [facility] (Confirmed) Active Posttraumatic stress disorder(Confirmed) Active [...]
--- OUTSIDE RECORDS SUMMARY | 2023-01-04 21:39 | XMS_ITS | Continuity of Care Document ---
Author Name Unknown Organization [facility] Address [address] [place] [address]- Care Team Providers Care General Intern Name Role Phone Sadaf Dawkins MD Primary Care Physician Encounter [facility] [place] Date(s): 12/11/19 - 01/11/20 [facility] [address] [address]- [facility] Attending Physician: Not on Staff, Attending MD Allergies, Adverse Reactions, Alerts Substance Reaction Severity Status Milk Products Resolved Pork Active Immunizations Given and Recorded Vaccine Date Status Refusal Reason tetanus/diphtheria/pertussis, acel(Tdap) 10/24/13 Given Medications albuterol CFC free 90 mcg/inh inhalation aerosol 2, puffs, Inhalation, 4 times a day, PRN, # 25 Gm, Refills 5, Tot. Refills 5, Maintenance, 01/09/2018:29:00 EDT, Aerosol, Route to Pharmacy Electronically, [id number], [facility] #[id number], 168, cm, 01/10/20 15:21:00... Start Date: 01/10/20 Status: Ordered Miconazole 7 vaginal suppository 1 sprays, Vaginally, Daily at bedtime, # 7 supp, 0 Refills, Maintenance, 01/10/20 18:30:00 EDT, Suppository, [facility] #[id number], 1 sprays Vaginally Daily at bedtime, 168, cm, 01/10/20 15:21:00 EDT, Height, 88.5, kg, 01/08/20 11:24:00 EDT, Dry... Start Date: 01/10/20 Status: Ordered Plus Iron oral tablet 1 tablet, By Mouth, Daily, # 30 tablet, 11 Refills, Maintenance, 01/10/20 18:29:00 EDT, Tablet, [facility] #[id number], 1 tablet By Mouth Daily, 168, cm, 01/10/20 15:21:00 EDT, Height, 88.5, kg,01/08/20 11:24:00 EDT, Dry Weight Start Date: 01/10/20 Status: Ordered Reglan 5 mg oral tablet 1 tablet = 5 mg, By Mouth, 3 times a day before meals and bedtime, for 14 days, # 56 tablet, 0 Refills, Acute 01/24/20 18:48:00 EDT, 01/10/20 18:48:00 EDT, Tablet, [facility] #[id number], 168, cm, 01/10/20 15:21:00 EDT, Height, 88.5, kg, 01/08/20... Start Date: 01/10/20 Stop Date: 01/24/20 Status: Ordered shoe insoles shoe insoles, See [...] maternal age) multigravida 35+(Confirmed) Active Care Management [facility] [phone](Confirmed) Active Posttraumatic stress disorder(Confirmed) Active (Confirmed) Active [...]
--- OUTSIDE RECORDS SUMMARY | 2023-01-04 21:39 | XMS_ITS | Continuity of Care Document ---
Author Name Unknown Organization [facility] ter Address [address] [place] [address]- Care Team Providers Care Chip Drier Name Role Phone Sadaf Dawkins MD Primary Care Physician [phone] [place] [facility] [place] - 06/10/[address] [address]- [facility] Discharge Disposition: A-D/C Home Attending Physician: Sita Garner DO Admitting Physician: Sita Garner DO Referring Physician: Danyelle Abraham CNM Allergies, Adverse Reactions, Alerts Substance Reaction Severity Status Milk Products Resolved Pork Active Immunizations Given and Recorded Vaccine Date Status Refusal Reason tetanus/diphtheria/pertussis, acel(Tdap) 10/24/13 Given Medications Abilify 10 mg oral tablet 10 mg, 1, tablet, By Mouth, Daily, # 30 tablet, Refills 0, Tot. Refills 0, Maintenance, 05/22/20 14:30:00 EDT, Route to Pharmacy Electronically, [facility] #[id number], 168, cm, 05/22/20 14:15:00 EDT, Height, 83.7, kg, 04/29/20 15:56:00 EDT, Dry... Start Date: 05/22/20 Status: Ordered Actigall 300 mg oral capsule 300 mg, 1, capsule, By Mouth, 3 times a day, # 90 capsule, Refills 1, Tot. Refills 1, Maintenance, 05/29/20 13:47:00 EDT, Route to Pharmacy Electronically, [facility] #[id number], 168, cm, 05/26/20 15:33:00 EDT, Height, 83.58, kg, 05/26/20 15:33:... Start Date: 05/29/20 Status: Ordered albuterol CFC free 90 mcg/inh inhalation aerosol 2, puffs, Inhalation, 4 times a day, PRN, # 25 Gm, Refills 5, Tot. Refills 5, Maintenance, 01/09/2018:29:00 EDT, Aerosol, Route to Pharmacy Electronically, [id number], [facility] #[id number], 168, cm, 01/10/20 15:21:00... Start Date: 01/10/20 Status: Ordered ibuprofen 600 mg oral tablet 600 mg, 1, tablet, By Mouth, 4 times a day, PRN, # 40 tablet, Refills 0, Tot. Refills 0, Maintenance, Pain, 06/10/20 10:28:00 EDT, Route to Pharmacy Electronically, [facility] #[id number], 168, cm, 06/10/20 9:28:00 EDT, Height, 83.58, kg, ... Start Date: 06/10/20 Status: Ordered Plus Iron oral tablet 1 tablet, By Mouth, Daily, # 30 tablet, 11 Refills, Maintenance, 05/22/20 14:31:00 EDT, Tablet, [facility] #[id number], 1 tablet By Mouth Daily, 168, cm, 05/22/20 14:15:00 EDT, Height, 83.7, kg,04/29/20 15:56:00 EDT, Dry Weight Start Date: 05/22/20 Status: Ordered promethazine 12.5 mg rectal suppository 1 supp = 12.5 mg, Rectally, Every 6 hours, PRN for nausea/vomiting, # 40 supp, 1 Refills, Maintenance, 05/29/20 13:45:00 EDT, Suppository, [facility] #[id number], 168, cm, 05/26/20 15:33:00 EDT,Height, 83.58, kg, [...] each, 1 Refills, Maintenance, 05/12/20 16:49:00 EDT, [facility] #[id number], 168, cm, 04/29/20 15:56:00 EDT, Height, 83.7, [...] maternal age) multigravida 35+(Confirmed) Active Care Management [facility] [phone](Confirmed) Active Posttraumatic stress disorder(Confirmed) Active (Confirmed) Active Sarcoid(Confirmed) 2 Active Urinary incontinence(Confirmed) Active 1Hx suicide attempt 2Possible dx sarcoid. Hx recurrent right uveitis. Elevated MELISSA level. PET w/ increased uptake in parotids. Vital Signs Most recent to oldest [Reference Range]: 1 2 3 Height 168 cm (06/10/20 9:00 AM) 168 cm (06/10/20 1:00 AM) 168 cm (06/09/20 4:46 PM) Weight 83.58 kg (06/07/20 9:09 PM) Oxygen Saturation [94-100 %] 100 % (06/10/20 1:00 AM) 99 % (06/09/20 3:00 AM) 100 % (06/08/20 10:00 PM) Pulse Rate [55-90 bpm] 87 bpm (06/10/20 9:00 AM) 77 bpm (06/10/20 1:00 AM) 71 bpm (06/09/20 4:46 PM) Body Mass Index [18.5-24.99] 29.61 *H* (06/07/20 9:09 PM) Blood Pressure [90-138/55-84 mm Hg] 128/67mm Hg (06/10/20 9:00 AM) 113/72mm Hg (06/10/20 1:00 AM) 108/59mm Hg (06/09/20 4:46 PM) Respiratory Rate [16-30 br/min] 20 br/min (06/10/20 10:32 AM) 20 br/min (06/10/20 10:32 AM) 20 br/min (06/10/20 9:07 AM) Temperature [96.8-100.4 DegF] 97.7 DegF (06/10/20 9:00 AM) 98.0 DegF (06/10/20 1:00 AM) 98.5 DegF (06/09/20 4:46 PM) Mode of Delivery (Oxygen) Room air (06/10/20 1:00 AM) Room air (06/09/20 3:00 AM) Room air (06/08/20 10:00 PM) Blood pressure sites Arm, right (06/09/20 4:46 PM) Arm, right (06/09/20 10:48 AM) Arm, left (06/08/20 5:07 PM) Temperature Route Oral (06/10/20 9:00 AM) Oral (06/10/20 1:00 AM) Oral (06/09/20 4:46 PM) Dry Weight 83.58 kg (06/07/20 9:09 PM) Social History Social History Type Response Smoking Status Never (less than 100 in lifetime); Tobacco user in household: No entered on: 01/08/20 Sex Female 1Has been off since 2006
--- OUTSIDE RECORDS SUMMARY | 2023-01-04 21:39 | XMS_ITS | Continuity of Care Document ---
Author Name Unknown Organization [facility] Address [address] [address]- Care Team Providers Care Environmental Health Safety Manager Name Role Phone Sadaf Dawkins MD Primary Care Physician [phone] Encounter [facility] [place] Date(s): 04/17/20 - 05/17/20 [facility] [address] [place] [address]- [facility] Allergies, Adverse Reactions, Alerts Substance Reaction Severity Status Milk Products Resolved Pork Active Immunizations Given and Recorded Vaccine Date Status Refusal Reason tetanus/diphtheria/pertussis, acel(Tdap) 10/24/13 Given Medications Abilify 10 mg oral tablet 10 mg, 1, tablet, By Mouth, Daily, # 30 tablet, Refills 0, Tot. Refills 0, Maintenance, 05/12/20 16:46:00 EDT, Route to Pharmacy Electronically, [facility] #[id number], 168, cm, 04/29/20 15:56:00 EDT, Height, 83.7, kg, 04/29/20 15:56:00 EDT, Dry... Start Date: 05/12/20 Status: Ordered Abilify 10 mg oral tablet 10 mg, 1, tablet, By Mouth, Daily, # 30 tablet, Refills 0, Tot. Refills 0, Maintenance, 04/15/20 15:25:00 EDT, Route to Pharmacy Electronically, [facility] #[id number], 168, cm, 04/15/20 15:17:00 EDT, Height, 85.4, [...] 04/29/20 16:07:00 EDT, Route to Pharmacy Electronically, [facility] #[id number], 168, cm, 04/29/20 15:56:00 EDT, Height, 83.7, kg, 04/29/20 15:56:0... Start Date: 04/29/20 Status: Ordered albuterol CFC free 90 mcg/inh inhalation aerosol 2, puffs, Inhalation, 4 times a day, PRN, # 25 Gm, Refills 5, Tot. Refills 5, Maintenance, 01/09/2018:29:00 EDT, Aerosol, Route to Pharmacy Electronically, [id number], [facility] #[id number], 168, cm, 01/10/20 15:21:00... Start Date: 01/10/20 Status: Ordered Benadryl 25 mg oral capsule 2 capsule = 50 mg, By Mouth, 3 times a day, PRN for itching, # 100 capsule, 0 Refills, Maintenance,04/29/20 16:09:00 EDT, Capsule, [facility] #[id number], 168, cm, 04/29/20 15:56:00 EDT, Height, 83.7, kg, 04/29/20 15:56:00 EDT, Dry Weight Start Date: 04/29/20 Status: Ordered Knee Immobilizer See Instructions, # 1 Unknown, Maintenance, wear as needed on left knee, 01/23/20 13:02:00 EDT, Compound Start Date: 01/23/20 Status: Ordered Miconazole 7 vaginal suppository 1 sprays, Vaginally, Daily at bedtime, # 7 supp, 0 Refills, Maintenance, 01/10/20 18:30:00 EDT, Suppository, [facility] #[id number], 1 sprays Vaginally Daily at bedtime, 168, cm, 01/10/20 15:21:00 EDT, Height, 88.5, kg, 01/08/20 11:24:00 EDT, Dry... Start Date: 01/10/20 Status: Ordered Plus Iron oral tablet 1 tablet, By Mouth, Daily, # 30 tablet, 11 Refills, Maintenance, 01/10/20 18:29:00 EDT, Tablet, [facility] #[id number], 1 tablet By Mouth Daily, 168, cm, 01/10/20 15:21:00 EDT, Height, 88.5, kg,01/08/20 11:24:00 EDT, Dry Weight Start Date: 01/10/20 Status: Ordered promethazine 12.5 mg rectal suppository 1 supp = 12.5 mg, Rectally, Every 6 hours, PRN for nausea/vomiting, # 40 supp, 0 Refills, Maintenance, 03/25/20 14:05:00 EDT, Suppository, [facility] #[id number], 168, cm, 03/25/20 13:36:00 EDT,Height, 84, kg, [...] 05/28/20 15:33:00 EDT, 04/27/20 15:31:00 EDT, Tablet, [facility]... Start Date: 04/27/20 Stop Date: 05/28/20 Status: Ordered Vitamin B6 50 mg oral tablet 50 mg, 1, tablet, By Mouth, Daily, for 21 days, # 21 tablet, Refills 2, Tot. Refills 2, Acute 06/29/20 15:32:00 EDT, 04/27/20 15:32:00 EDT, Route to Pharmacy Electronically, [facility] #[id number], 168, cm, 04/15/20 15:17:00 EDT, Height, 85.4, kg... Start Date: 04/27/20 Stop Date: 06/29/20 Status: Ordered Walker See Instructions, # 1 Unknown, Maintenance, wheeled walker for use as needed for walking, 01/23/20 15:07:00 EDT, Compound Start Date: 01/23/20 Status: Ordered Zofran 4 mg oral tablet See Instructions, 1 tablet By Mouth Daily, # 20 each, 1 Refills, Maintenance, 05/12/20 16:49:00 EDT, [facility] #[id number], 168, cm, 04/29/20 15:56:00 EDT, Height, 83.7, [...] Management [facility] [phone](Confirmed) Active Posttraumatic stress disorder(Confirmed) Active (Confirmed) Active [...]
--- OUTSIDE RECORDS SUMMARY | 2023-01-04 21:39 | XMS_ITS | Continuity of Care Document ---
Author Name Unknown Organization [facility] Address [address] [place] [address]- Care Team Providers Care Fancy Wire Drawer Name Role Phone Sadaf Dawkins MD Primary Care Physician Encounter [facility] [place] Date(s): 08/06/21 - 09/05/21 [facility] [address] [place], [place] [address] Attending Physician: Ora Brown Admitting Physician: [...] 16:07:00 EST, Aerosol, Route to Pharmacy Electronically, [id number], [facility] #[id number], 168, cm, 08/20/21 15:40:... Start Date: 08/20/21 [...] multigravida 35+(Confirmed) Active Obese class I(Confirmed) Active Care Management [facility] [place] (Confirmed) Active Posttraumatic stress disorder(Confirmed) Active (Confirmed) [...]
--- OUTSIDE RECORDS SUMMARY | 2023-01-04 21:39 | XMS_ITS | Continuity of Care Document ---
Author Name Unknown Organization [facility] Address [address] [place] [address]- Care Team Providers Care Maintainer Plant Name Role Phone Sadaf Dawkins MD Primary Care Physician [place] [facility] [place](s[place] 07/13/20 - 08/12/[address] [address] [place] Allergies, Adverse Reactions, Alerts Substance Reaction Severity Status Milk Products Resolved Pork Active Immunizations Given and Recorded Vaccine Date Status Refusal Reason tetanus/diphtheria/pertussis, acel(Tdap) 10/24/13 Given Medications Abilify 10 mg oral tablet 10 mg, 1, tablet, By Mouth, Daily, # 30 tablet, Refills 0, Tot. Refills 0, Maintenance, 05/22/20 14:30:00 EDT, Route to Pharmacy Electronically, [facility] #[id number], 168, cm, 05/22/20 14:15:00 EDT, Height, 83.7, kg, 04/29/20 15:56:00 EDT, Dry... Start Date: 05/22/20 Status: Ordered Actigall 300 mg oral capsule 300 mg, 1, capsule, By Mouth, 3 times a day, # 90 capsule, Refills 1, Tot. Refills 1, Maintenance, 05/29/20 13:47:00 EDT, Route to Pharmacy Electronically, [facility] #[id number], 168, cm, 05/26/20 15:33:00 EDT, Height, 83.58, kg, 05/26/20 15:33:... Start Date: 05/29/20 Status: Ordered albuterol CFC free 90 mcg/inh inhalation aerosol 2, puffs, Inhalation, 4 times a day, PRN, # 25 Gm, Refills 5, Tot. Refills 5, Maintenance, 01/09/2018:29:00 EDT, Aerosol, Route to Pharmacy Electronically, [id number], [facility] #[id number], 168, cm, 01/10/20 15:21:00... Start Date: 01/10/20 Status: Ordered Diflucan 150 mg oral tablet See Instructions, 1 tablet By Mouth now, then repeat in 5 days if symptoms persist, # 2 tablet, 0 Refills, Maintenance, 07/31/20 9:54:00 EDT, Tablet, [facility] #[id number], 168, cm, 07/27/20 17:38:00 EDT, Height, 86.3, kg, 07/27/20 17:59:00 EDT,... Start Date: 07/31/20 Status: Ordered ibuprofen 600 mg oral tablet 600 mg, 1, tablet, By Mouth, 4 times a day, PRN, # 40 tablet, Refills 0, Tot. Refills 0, Maintenance, Pain, 06/10/20 10:28:00 EDT, Route to Pharmacy Electronically, [facility] #[id number], 168, cm, 06/10/20 9:28:00 EDT, Height, 83.58, kg, ... Start Date: 06/10/20 Status: Ordered Plus Iron oral tablet 1 tablet, By Mouth, Daily, # 30 tablet, 11 Refills, Maintenance, 05/22/20 14:31:00 EDT, Tablet, [facility] #25348, 1 tablet By Mouth Daily, 168, cm, 05/22/20 14:15:00 EDT, Height, 83.7, kg,04/29/20 15:56:00 EDT, Dry Weight Start Date: 05/22/20 Status: Ordered promethazine 12.5 mg rectal suppository 1 supp = 12.5 mg, Rectally, Every 6 hours, PRN for nausea/vomiting, # 40 supp, 1 Refills, Maintenance, 05/29/20 13:45:00 EDT, Suppository, [facility] #[id number], 168, cm, 05/26/20 15:33:00 EDT,Height, 83.58, kg, [...] each, 1 Refills, Maintenance, 05/12/20 16:49:00 EDT, [facility] #[id number], 168, cm, 04/29/20 15:56:00 EDT, Height, 83.7, [...] Care Management [facility] [phone](Confirmed) Active Posttraumatic stress disorder(Confirmed) Active (Confirmed) Active [...]
--- OUTSIDE RECORDS SUMMARY | 2023-01-04 21:39 | XMS_ITS | Continuity of Care Document ---
Author Name Unknown Organization [facility] Address [address] [place] [address]- Care Team Providers Care Cat Breeder Name Role Phone Checo John Primary Care Physician Encounter [facility] Date(s): 01/19/22 - 02/18/22 [facility] [address] [place] [address]- Allergies, Adverse Reactions, Alerts Substance Reaction Severity [...] 16:07:00 EST, Aerosol, Route to Pharmacy Electronically, [id number], [id number], 168, cm, 08/20/21 15:40:... Start Date: 08/20/21 [...] Care Management [facility] Scar[facility] Walton [phone](Confirmed) Active Posttraumatic stress disorder(Confirmed) Active (Confirmed) Active [...]
--- OUTSIDE RECORDS SUMMARY | 2023-01-04 21:39 | XMS_ITS | Continuity of Care Document ---
Author Name Unknown Organization [facility] Address [address] [place] [address]- Care Team Providers Care Priming Mixture Carrier Name Role Phone Sadaf Dawkins MD Primary Care Physician Encounter [facility] [place] Date(s): 04/14/21 - 05/14/[address] [address]- Attending Physician: Admtr, [id number] Allergies, Adverse Reactions, Alerts Substance Reaction Severity Status Milk Products Resolved Pork Active Immunizations Given and Recorded Vaccine Date Status Refusal Reason tetanus/diphtheria/pertussis, acel(Tdap) 10/24/13 Given Medications albuterol CFC free 90 mcg/inh inhalation aerosol 2, puffs, Inhalation, 4 times a day, PRN, # 1 each, Refills 11, Tot. Refills 11, Maintenance, 04/14/21 14:17:00 EDT, Aerosol, Route to Pharmacy Electronically, [id number], [facility] #[id number], 168, cm, 04/14/21 14:05:... Start Date: 04/14/21 [...] maternal age) multigravida 35+(Confirmed) Active Care Management [facility] (Confirmed) Active Posttraumatic stress disorder(Confirmed) Active [...]
--- OUTSIDE RECORDS SUMMARY | 2023-01-04 21:39 | XMS_ITS | Continuity of Care Document ---
Author Name Unknown Organization [facility] Address [address] [place] [address]- Care Team Providers Care City Assessor Name Role Phone Sadaf Dawkins MD Primary Care Physician [phone] [place] [facility]05[place] - 06/04/[address] [address] Allergies, Adverse Reactions, Alerts Substance Reaction Severity Status Milk Products Resolved Pork Active Immunizations Given and Recorded Vaccine Date Status Refusal Reason tetanus/diphtheria/pertussis, acel(Tdap) 10/24/13 Given Medications albuterol CFC free 90 mcg/inh inhalation aerosol 2, puffs, Inhalation, 4 times a day, PRN, # 1 each, Refills 11, Tot. Refills 11, Maintenance, 04/14/21 14:17:00 EDT, Aerosol, Route to Pharmacy Electronically, [id number], [facility] #[id number], 168, cm, 04/14/21 14:05:... Start Date: 04/14/21 [...]
--- OUTSIDE RECORDS SUMMARY | 2023-01-04 21:39 | XMS_ITS | Continuity of Care Document ---
Author Name Unknown Organization [facility] ter Address [address] [place] [address]- Care Team Providers Care Mobile Engineer Name Role Phone Sadaf Dawkins MD Primary Care Physician [phone] Encounter [facility] [place] Date(s): 01/22/20 - 01/23/[address] [address]- [facility] Encounter Diagnosis Knee pain(Final) - 01/23/20 Hematoma of frontal scalp(Final) - 01/23/20 Discharge Disposition: A-D/C Home Attending Physician: Sue Kaufman MD Admitting Physician: Sue Kaufman MD Referring Physician: Not on Staff, Referring MD Allergies, Adverse Reactions, Alerts Substance Reaction Severity Status NKA Active Medications acetaminophen 325 mg oral tablet 650 mg, 2, tablet, By Mouth, Every 4 hours, PRN, # 30 tablet, Refills 0, Tot. Refills 0, Acute 10/08/20 10:34:00 EST, Pain , Mild, 01/23/20 10:33:00 EDT, Print Requisition Start Date: 01/23/20 Stop Date: 10/08/20 Status: Ordered Knee Immobilizer See Instructions, # 1 Unknown, Maintenance, wear as needed on left knee, 01/23/20 13:02:00 EDT, Compound Start Date: 01/23/20 Status: Ordered oxyCODONE 5 mg oral capsule 1 capsule = 5 mg, By Mouth, Every 6 hours, PRN as needed for pain, # 5 capsule, 0 Refills, Acute 01/25/20 15:42:00 EDT, 01/23/20 15:42:00 EDT, Capsule, Partial fill upon patient request Start Date: 01/23/20 Stop Date: 01/25/20 Status: Ordered Walker See Instructions, # 1 Unknown, Maintenance, wheeled walker for use as needed for walking, 01/23/20 15:07:00 EDT, Compound Start Date: 01/23/20 Status: Ordered Results Radiology Reports * Exam Date Time Procedure Performing Provider Status 01/23/20 7:21 AM Hand Min 3 Views Right Omari Ortiz (Verified) Notes: (Hand Min 3 Views Right) Reason For Exam: with Pain;Trauma RESULT: Hand Min 3 Views Right Hand Min 3 Views Right, 3 views Indication: 39-year-old female with pain RIGHT hand after trauma. COMPARISON: None. FINDINGS: No acute fracture or dislocation. No arthritic changes. Normal soft tissues. No radiopaque foreign body. IMPRESSION: No acute abnormality. I have personally reviewed the images and I agree with this report. WSN: [id number] Ordering Physician: Dalila Martin Dictated By: Lurdes Zuniga MD Dictated Date/Time: 01/23/20 8:06 am Reviewed By: Lamont Bautista MD Signed By: Lamont Bautista MD Signed Date/Time: 01/23/20 8:11 am Transcribed By: LILLY Transcribed Date/Time: 01/23/20 7:40 am * Exam Date Time Procedure Performing Provider Status 01/22/20 8:10 PM Knee 1 or 2 Views Left Jered Page (Verified) Notes: (Knee 1 or 2 Views Left) Reason For Exam: with Pain;Trauma RESULT: Knee 1 or 2 Views Left Knee 1 or 2 Views Left, views Reason: Trauma; with Pain; Clinical Question(s): Fracture COMPARISON: Left femur, same day. TECHNIQUE: AP and crosstable lateral views. FINDINGS: There is no evidence of acute or healing fracture, dislocation or bone lesion. No arthritic changes. No osteochondral defects or intra-articular loose bodies. No evidence of joint effusion. There is soft tissue swelling and edema anterior to the patella and patellar ligament. IMPRESSION: No evidence of fracture. Anterior soft tissue swelling/contusion. WSN: [id number] Ordering Physician: Vicky January Dictated By: Armando Paez MD Dictated Date/Time: 01/22/20 8:18 pm Reviewed By: Armando Paez MD Signed By: Armando Paez MD Signed Date/Time: 01/22/20 8:18 pm Transcribed By: LILLY Transcribed Date/Time: 01/22/20 8:18 pm * Exam Date Time Procedure Performing Provider Status 01/22/20 8:10 PM XR Femur 2 Views Left Jered Page (Verified) Notes: (XR Femur 2 Views Left) Reason For Exam: with Pain;Trauma RESULT: Femur 2 Views Left Femur 2 Views Left Reason: Trauma; with Pain; Clinical Question(s): Fracture COMPARISON: AP pelvis and left knee, 01/22/2020. TECHNIQUE: AP and crosstable lateral views obtained. FINDINGS: No fracture, dislocation or bone lesion. Visualized portions of the joints are normal. Normal soft tissues. IMPRESSION: Normal. WSN: [id number] Ordering Physician: January Dictated By: Armando Paez MD Dictated Date/Time: 01/22/20 8:19 pm Reviewed By: Armando Paez MD Signed By: Armando Paez MD Signed Date/Time: 01/22/20 8:19 pm Transcribed By: LILLY Transcribed Date/Time: 01/22/20 8:16 pm * Exam Date Time Procedure Performing Provider Status 01/22/20 7:31 PM Pelvis 1 or 2 Views Vielka Lee; Aut h (Verified) Notes: (Pelvis 1 or 2 Views) Reason For Exam: with Pain;Trauma RESULT: Pelvis 1 or 2 Views Pelvis 1 or 2 Views Reason: Trauma; with Pain; Clinical Question(s): Fracture COMPARISON: None. FINDINGS: There is no fracture or dislocation. Normal hips and sacroiliac joints. Normal soft tissues. IMPRESSION: Normal. WSN: [id number] Ordering Physician: January Dictated By: Magaly White MD Dictated Date/Time: 01/22/20 7:35 pm Reviewed By: Magaly White MD Signed By: Magaly White MD Signed Date/Time: 01/22/20 7:35 pm Transcribed By: LILLY Transcribed Date/Time: 01/22/20 7:33 pm * Exam Date Time Procedure Performing Provider Status 01/22/20 7:31 PM Chest Portable Kibe , Vielak; Auth (Ve rified) Notes: (Chest Portable) Reason For Exam: Pain;Other: RESULT: Chest Portable Chest Portable Reason: Pain; Clinical Question(s): Fracture, pneumothorax, pulmonary contusion COMPARISON: None. FINDINGS: LINES AND TUBES: None. LUNGS AND PLEURA: Clear lungs. Normal pulmonary vascularity. No pleural effusion. No pneumothorax. HEART, MEDIASTINUM AND DAVIS: Heart is normal in size. Normal mediastinal and hilar contour. BONES AND SOFT TISSUES: No fracture or dislocation. No displaced rib fracture. IMPRESSION: No acute abnormality. I have personally reviewed the images and I agree with this report. WSN: [id number] Ordering Physician: January Dictated By: Jovan Franz MD Dictated Date/Time: 01/22/20 7:47 pm Reviewed By: Magaly White MD Signed By: Magaly White MD Signed Date/Time: 01/22/20 7:52 pm Transcribed By: LILLY Transcribed Date/Time: 01/22/20 7:33 pm Vital Signs Most recent to oldest [Reference Range]: 1 2 3 Height 168 cm (01/23/20 4:49 PM) 168 cm (01/23/20 9:05 AM) 168 cm (01/23/20 3:28 AM) Weight 84.0 kg (01/22/20 11:03 PM) Oxygen Saturation [94-100 %] 96 % (01/23/20 4:49 PM) 95 % (01/23/20 9:05 AM) 100 % (01/23/20 3:28 AM) Pulse Rate [55-90 bpm] 79 bpm (01/23/20 4:49 PM) 82 bpm (01/23/20 9:05 AM) 65 bpm (01/23/20 3:28 AM) Body Mass Index [18.5-24.99] 29.76 *H* (01/22/20 11:03 PM) Blood Pressure [90-138/55-84 mm Hg] 110/68mm Hg (01/23/20 4:49 PM) 117/67mm Hg (01/23/20 9:05 AM) 99/57mm Hg (01/23/20 3:28 AM) Respiratory Rate [16-30 br/min] 20 br/min (01/23/20 4:49 PM) 18 br/min (01/23/20 2:00 PM) 20 br/min (01/23/20 9:49 AM) Temperature [96.8-100.4 DegF] 97.7 DegF (01/23/20 4:49 PM) 98.3 DegF (01/23/20 9:05 AM) 97.6 DegF (01/23/20 3:28 AM) Mode of Delivery (Oxygen) Room air (01/23/20 4:49 PM) Room air (01/23/20 9:05 AM) Room air (01/23/20 3:28 AM) Blood pressure sites Arm, left (01/23/20 4:49 PM) Arm, left (01/23/20 9:05 AM) Arm, right (01/23/20 3:28 AM) Temperature Route Oral (01/23/20 4:49 PM) Oral (01/23/20 9:05 AM) Oral (01/23/20 3:28 AM) Dry Weight 84.0 kg (01/22/20 11:03 PM) Weight Obtained Via Bed scale (01/22/20 11:03 PM) Dry Weight Obtained Via Bed scale (01/22/20 11:03 PM)
--- OUTSIDE RECORDS SUMMARY | 2023-01-04 21:39 | XMS_ITS | Continuity of Care Document ---
Author Name Unknown Organization [facility] Address [address] [place] [address]- Care Team Providers Care Distribution Technician Name Role Phone Sadaf Dawkins MD Primary Care Physician Encounter [facility] Date(s): 06/10/20 - 07/10/20 [facility] [address] [address]- [facility] Allergies, Adverse Reactions, Alerts Substance Reaction Severity Status Milk Products Resolved Pork Active Immunizations Given and Recorded Vaccine Date Status Refusal Reason tetanus/diphtheria/pertussis, acel(Tdap) 10/24/13 Given Medications Abilify 10 mg oral tablet 10 mg, 1, tablet, By Mouth, Daily, # 30 tablet, Refills 0, Tot. Refills 0, Maintenance, 05/22/20 14:30:00 EDT, Route to Pharmacy Electronically, [facility] #[id number], 168, cm, 05/22/20 14:15:00 EDT, Height, 83.7, kg, 04/29/20 15:56:00 EDT, Dry... Start Date: 05/22/20 Status: Ordered Actigall 300 mg oral capsule 300 mg, 1, capsule, By Mouth, 3 times a day, # 90 capsule, Refills 1, Tot. Refills 1, Maintenance, 05/29/20 13:47:00 EDT, Route to Pharmacy Electronically, [facility] #[id number], 168, cm, 05/26/20 15:33:00 EDT, Height, 83.58, kg, 05/26/20 15:33:... Start Date: 05/29/20 Status: Ordered albuterol CFC free 90 mcg/inh inhalation aerosol 2, puffs, Inhalation, 4 times a day, PRN, # 25 Gm, Refills 5, Tot. Refills 5, Maintenance, 01/09/2018:29:00 EDT, Aerosol, Route to Pharmacy Electronically, [id number], [facility] #[id number], 168, cm, 01/10/20 15:21:00... Start Date: 01/10/20 Status: Ordered ibuprofen 600 mg oral tablet 600 mg, 1, tablet, By Mouth, 4 times a day, PRN, # 40 tablet, Refills 0, Tot. Refills 0, Maintenance, Pain, 06/10/20 10:28:00 EDT, Route to Pharmacy Electronically, [facility] #01821, 168, cm, 06/10/20 9:28:00 EDT, Height, 83.58, kg, ... Start Date: 06/10/20 Status: Ordered Plus Iron oral tablet 1 tablet, By Mouth, Daily, # 30 tablet, 11 Refills, Maintenance, 05/22/20 14:31:00 EDT, Tablet, [facility] #[id number], 1 tablet By Mouth Daily, 168, cm, 05/22/20 14:15:00 EDT, Height, 83.7, kg,04/29/20 15:56:00 EDT, Dry Weight Start Date: 05/22/20 Status: Ordered promethazine 12.5 mg rectal suppository 1 supp = 12.5 mg, Rectally, Every 6 hours, PRN for nausea/vomiting, # 40 supp, 1 Refills, Maintenance, 05/29/20 13:45:00 EDT, Suppository, [facility] #85128, 168, cm, 05/26/20 15:33:00 EDT,Height, 83.58, kg, [...] each, 1 Refills, Maintenance, 05/12/20 16:49:00 EDT, [facility] #66131, 168, cm, 04/29/20 15:56:00 EDT, Height, 83.7, [...] maternal age) multigravida 35+(Confirmed) Active Care Management [facility] , [facility] [phone](Confirmed) Active Posttraumatic stress disorder(Confirmed) Active (Confirmed) Active [...]
--- OUTSIDE RECORDS SUMMARY | 2023-01-04 21:39 | XMS_ITS | Continuity of Care Document ---
Author Name Unknown Organization [facility] Address [address] [place] [address]- Care Team Providers Care Golf Ball Inspector Name Role Phone Sadaf Dawkins MD Primary Care Physician Encounter 10/29/20 - 12/02/20 [facility] and [address] [address]- Attending Physician: Not on Staff, Attending MD [...] 05/22/20 14:30:00 EDT, Route to Pharmacy Electronically, [facility] #[id number], 168, cm, 05/22/20 14:15:00 EDT, Height, 83.7, kg, 04/29/20 15:56:00 EDT, Dry... Start Date: 05/22/20 Status: Ordered Actigall 300 mg oral capsule 300 mg, 1, capsule, By Mouth, 3 times a day, # 90 capsule, Refills 1, Tot. Refills 1, Maintenance, 05/29/20 13:47:00 EDT, Route to Pharmacy Electronically, [facility] #[id number], 168, cm, 05/26/20 15:33:00 EDT, Height, 83.58, kg, 05/26/20 15:33:... Start Date: 05/29/20 Status: Ordered albuterol CFC free 90 mcg/inh inhalation aerosol 2, puffs, Inhalation, 4 times a day, PRN, # 25 Gm, Refills 5, Tot. Refills 5, Maintenance, 01/09/2018:29:00 EDT, Aerosol, Route to Pharmacy Electronically, [id number], [facility] #[id number], 168, cm, 01/10/20 15:21:00... Start Date: 01/10/20 Status: Ordered Diflucan 150 mg oral tablet 1 tablet = 150 mg, By Mouth, Once, # 1 tablet, 0 Refills, Soft Stop, 11/11/20 13:24:00 EST, Tablet,[facility] #[id number], Partial fill upon patient request if the prescription is for a schedule II opioid drug., 168, cm, 10/29/20 9:46:00 EST, He... Start Date: 11/11/20 Status: Ordered ibuprofen 600 mg oral tablet 600 mg, 1, tablet, By Mouth, 4 times a day, PRN, # 40 tablet, Refills 0, Tot. Refills 0, Maintenance, Pain, 06/10/20 10:28:00 EDT, Route to Pharmacy Electronically, [facility] #[id number], 168, cm, 06/10/20 9:28:00 EDT, Height, 83.58, kg, ... Start Date: 06/10/20 Status: Ordered Plus Iron oral tablet 1 tablet, By Mouth, Daily, # 30 tablet, 11 Refills, Maintenance, 05/22/20 14:31:00 EDT, Tablet, [facility] #68403, 1 tablet By Mouth Daily, 168, cm, 05/22/20 14:15:00 EDT, Height, 83.7, kg,04/29/20 15:56:00 EDT, Dry Weight Start Date: 05/22/20 Status: Ordered promethazine 12.5 mg rectal suppository 1 supp = 12.5 mg, Rectally, Every 6 hours, PRN for nausea/vomiting, # 40 supp, 1 Refills, Maintenance, 05/29/20 13:45:00 EDT, Suppository, [facility] #[id number], 168, cm, 05/26/20 15:33:00 EDT,Height, 83.58, kg, [...] each, 1 Refills, Maintenance, 05/12/20 16:49:00 EDT, [facility] #60150, 168, cm, 04/29/20 15:56:00 EDT, Height, 83.7, [...] 35+(Confirmed) Active Care Management [facility] [phone](Confirmed) Active Posttraumatic stress disorder(Confirmed) Active (Confirmed) Active [...]
--- OUTSIDE RECORDS SUMMARY | 2023-01-04 21:39 | XMS_ITS | Continuity of Care Document ---
Author Name Unknown Organization [facility] Address [address] [place] [address]- Care Team Providers Care Unisaw Operator Name Role Phone Sadaf Dawkins MD Primary Care Physician Encounter 11/02/20 - 12/02/20 [facility] and [address] [address] Attending Physician: Ora Brown Admitting Physician: [...] 05/22/20 14:30:00 EDT, Route to Pharmacy Electronically, [facility] #[id number], 168, cm, 05/22/20 14:15:00 EDT, Height, 83.7, kg, 04/29/20 15:56:00 EDT, Dry... Start Date: 05/22/20 Status: Ordered Actigall 300 mg oral capsule 300 mg, 1, capsule, By Mouth, 3 times a day, # 90 capsule, Refills 1, Tot. Refills 1, Maintenance, 05/29/20 13:47:00 EDT, Route to Pharmacy Electronically, [facility] #[id number], 168, cm, 05/26/20 15:33:00 EDT, Height, 83.58, kg, 05/26/20 15:33:... Start Date: 05/29/20 Status: Ordered albuterol CFC free 90 mcg/inh inhalation aerosol 2, puffs, Inhalation, 4 times a day, PRN, # 25 Gm, Refills 5, Tot. Refills 5, Maintenance, 01/09/2018:29:00 EDT, Aerosol, Route to Pharmacy Electronically, [id number], [facility] #85441, 168, cm, 01/10/20 15:21:00... Start Date: 01/10/20 Status: Ordered Diflucan 150 mg oral tablet 1 tablet = 150 mg, By Mouth, Once, # 1 tablet, 0 Refills, Soft Stop, 11/11/20 13:24:00 EST, Tablet,[facility] #[id number], Partial fill upon patient request if the prescription is for a schedule II opioid drug., 168, cm, 10/29/20 9:46:00 EST, He... Start Date: 11/11/20 Status: Ordered ibuprofen 600 mg oral tablet 600 mg, 1, tablet, By Mouth, 4 times a day, PRN, # 40 tablet, Refills 0, Tot. Refills 0, Maintenance, Pain, 06/10/20 10:28:00 EDT, Route to Pharmacy Electronically, [facility] #[id number], 168, cm, 06/10/20 9:28:00 EDT, Height, 83.58, kg, ... Start Date: 06/10/20 Status: Ordered Plus Iron oral tablet 1 tablet, By Mouth, Daily, # 30 tablet, 11 Refills, Maintenance, 05/22/20 14:31:00 EDT, Tablet, [facility] #[id number], 1 tablet By Mouth Daily, 168, cm, 05/22/20 14:15:00 EDT, Height, 83.7, kg,04/29/20 15:56:00 EDT, Dry Weight Start Date: 05/22/20 Status: Ordered promethazine 12.5 mg rectal suppository 1 supp = 12.5 mg, Rectally, Every 6 hours, PRN for nausea/vomiting, # 40 supp, 1 Refills, Maintenance, 05/29/20 13:45:00 EDT, Suppository, [facility] #[id number], 168, cm, 05/26/20 15:33:00 EDT,Height, 83.58, kg, [...] each, 1 Refills, Maintenance, 05/12/20 16:49:00 EDT, [facility] #83124, 168, cm, 04/29/20 15:56:00 EDT, Height, 83.7, [...] Active Care Management [facility] [phone](Confirmed) Active Posttraumatic stress disorder(Confirmed) Active (Confirmed) Active [...]
--- OUTSIDE RECORDS SUMMARY | 2023-01-04 21:39 | XMS_ITS | Continuity of Care Document ---
Author Name Unknown Organization [facility] Address [address] [place] [address], [address] [place] [address]- Care Team Providers Care Notch Grinder Name Role Phone Sadaf Dawkins MD Primary Care Physician [phone] [id number] Date[facility]s): [facility]10[facility] - 03[facility]22/20 [facility] [address] [facility], [address] [place] [address]- [facility] Attending Physician: Lilia Miller MD Referring Physician: Geovanna Ruiz CNM Allergies, Adverse Reactions, Alerts Substance Reaction [...] 01/09/2018:29:00 EDT, Aerosol, Route to Pharmacy Electronically, [id number], [facility] #[id number], 168, cm, 01/10/20 15:21:00... Start Date: 01/10/20 Status: Ordered Knee Immobilizer See Instructions, # 1 Unknown, Maintenance, wear as needed on left knee, 01/23/20 13:02:00 EDT, Compound Start Date: 01/23/20 Status: Ordered Miconazole 7 vaginal suppository 1 sprays, Vaginally, Daily at bedtime, # 7 supp, 0 Refills, Maintenance, 01/10/20 18:30:00 EDT, Suppository, [facility] #38398, 1 sprays Vaginally Daily at bedtime, 168, cm, 01/10/20 15:21:00 EDT, Height, 88.5, kg, 01/08/20 11:24:00 EDT, Dry... Start Date: 01/10/20 Status: Ordered Plus Iron oral tablet 1 tablet, By Mouth, Daily, # 30 tablet, 11 Refills, Maintenance, 01/10/20 18:29:00 EDT, Tablet, [facility] #31770, 1 tablet By Mouth Daily, 168, cm, [...] each, 1 Refills, Maintenance, 02/26/20 16:44:00 EDT, [facility] #36138, 168, cm, 02/26/20 16:17:00 EDT, Height, 84, [...] 35+(Confirmed) Active Care Management [facility] [phone](Confirmed) Active Posttraumatic stress disorder(Confirmed) Active (Confirmed) Active [...]
--- OUTSIDE RECORDS SUMMARY | 2023-01-04 21:39 | XMS_ITS | Continuity of Care Document ---
Author Name Unknown Organization [facility] Address [address] [place] [address]- Care Team Providers Care Electric Welder Name Role Phone Sadaf Dawkins MD Primary Care Physician En[facility] Date(s): 12/22/20 - 01/21/21 [facility] [address] [place] [address]- Attending Physician: Ora Brown Admitting Physician: Ora [...] 05/22/20 14:30:00 EDT, Route to Pharmacy Electronically, [facility] #[id number], 168, cm, 05/22/20 14:15:00 EDT, Height, 83.7, kg, 04/29/20 15:56:00 EDT, Dry... Start Date: 05/22/20 Status: Ordered Actigall 300 mg oral capsule 300 mg, 1, capsule, By Mouth, 3 times a day, # 90 capsule, Refills 1, Tot. Refills 1, Maintenance, 05/29/20 13:47:00 EDT, Route to Pharmacy Electronically, [facility] #[id number], 168, cm, 05/26/20 15:33:00 EDT, Height, 83.58, kg, 05/26/20 15:33:... Start Date: 05/29/20 Status: Ordered albuterol CFC free 90 mcg/inh inhalation aerosol 2, puffs, Inhalation, 4 times a day, PRN, # 25 Gm, Refills 5, Tot. Refills 5, Maintenance, 01/09/2018:29:00 EDT, Aerosol, Route to Pharmacy Electronically, [id number], [facility] #38263, 168, cm, 01/10/20 15:21:00... Start Date: 01/10/20 Status: Ordered Diflucan 150 mg oral tablet 1 tablet = 150 mg, By Mouth, Once, # 1 tablet, 0 Refills, Soft Stop, 11/11/20 13:24:00 EST, Tablet,[facility] #[id number], Partial fill upon patient request if the prescription is for a schedule II opioid drug., 168, cm, 10/29/20 9:46:00 EST, He... Start Date: 11/11/20 Status: Ordered ibuprofen 600 mg oral tablet 600 mg, 1, tablet, By Mouth, 4 times a day, PRN, # 40 tablet, Refills 0, Tot. Refills 0, Maintenance, Pain, 06/10/20 10:28:00 EDT, Route to Pharmacy Electronically, [facility] #[id number], 168, cm, 06/10/20 9:28:00 EDT, Height, 83.58, kg, ... Start Date: 06/10/20 Status: Ordered Plus Iron oral tablet 1 tablet, By Mouth, Daily, # 30 tablet, 11 Refills, Maintenance, 05/22/20 14:31:00 EDT, Tablet, [facility] #96154, 1 tablet By Mouth Daily, 168, cm, 05/22/20 14:15:00 EDT, Height, 83.7, kg,04/29/20 15:56:00 EDT, Dry Weight Start Date: 05/22/20 Status: Ordered promethazine 12.5 mg rectal suppository 1 supp = 12.5 mg, Rectally, Every 6 hours, PRN for nausea/vomiting, # 40 supp, 1 Refills, Maintenance, 05/29/20 13:45:00 EDT, Suppository, [facility] #46799, 168, cm, 05/26/20 15:33:00 EDT,Height, 83.58, kg, [...] each, 1 Refills, Maintenance, 05/12/20 16:49:00 EDT, [facility] #50832, 168, cm, 04/29/20 15:56:00 EDT, Height, 83.7, [...] multigravida 35+(Confirmed) Active Care Management [facility] [phone](Confirmed) Active Posttraumatic stress disorder(Confirmed) Active (Confirmed) Active [...]
--- OUTSIDE RECORDS SUMMARY | 2023-01-04 21:40 | XMS_ITS | Continuity of Care Document ---
Author Name Unknown Organization [facility] Address [address] [place] [address]- Care Team Providers Care Pattern Grader Supervisor Name Role Phone Checo John Primary Care Physician Encounter [facility] Date(s): 01/31/22 - 03/02/22 [facility] [place] [address], [place] [address] Allergies, Adverse Reactions, Alerts [...] 16:07:00 EST, Aerosol, Route to Pharmacy Electronically, [id number], [facility] #[id number], 168, cm, 08/20/21 15:40:... Start Date: 08/20/21 [...] multigravida 35+(Confirmed) Active Obese class I(Confirmed) Active [facility] Care Management [facility] , Scarlett Walton [phone](Confirmed) Active Posttraumatic stress disorder(Confirmed) Active (Confirmed) Active Urinary incontinence(Confirmed) Active Ventricular ectopy(Confirmed) Active 1Hx suicide attempt Social History Social History Type Response Smoking Status Former smoker, quit more than 30 days ago entered on: 11/11/21 Sex 1Has been off since 2006
--- OUTSIDE RECORDS SUMMARY | 2023-01-04 21:40 | XMS_ITS | Continuity of Care Document ---
Author Name Unknown Organization [facility] Address [address] [place] [address]- Care Team Providers Care Pantograph Machine Operator Name Role Phone Checo John Primary Care Physician [place] [facility] [place] - 11/27/22 [facility] [address] [place] [address] Allergies, Adverse Reactions, Alerts Substance Reaction [...] 16:07:00 EST, Aerosol, Route to Pharmacy Electronically, [id number], [facility] #[id number], 168, cm, 08/20/21 15:40:... Start Date: 08/20/21 [...] Refills, Soft Stop, 07/08/22 12:02:00 EDT, Tablet, [facility] #71123, Partial fill upon patient request if the [...] Confirmed Active Obese class I Confirmed Active [facility] [phone] Confirmed Active Posttraumatic stress disorder Confirmed Active Confirmed Active Urinary incontinence Confirmed Active Ventricular ectopy Confirmed Active 1Hx suicide attempt Social History Social History Type Response Smoking Status Former smoker, quit more than 30 days ago entered on: 11/11/21 Sex 1Has been off since 2006 Patient Care team information Care Team Personnel Name: Jerome WIND COMMISSIONING TECHNICIAN, Era Alvarez Position: Reference Physician Member Role: Primary Care Nurse Address: Address: [address] [place] [address]- Name: Mally Ham RN Position: S RN Member Role: Primary Care Nurse Name: Checo John Position: [facility] PCO Associate Professional Member Role: PCP Address: Address: [address] [place] [address] [place] [address]- [place] Name: Rossana Avalos RN Position: [facility] SN RN Member Role: Primary Care Nurse Care Team Related Persons Name: PASQUALE REID Address: home [address] [place] [address] Name: ANICETO LUNA Address: home [address] [place] [address] Name: NAIMA LUNA Address: Address: home [address] [place] [address] [place] Name: PT STATES NO ONE, NONE
--- OUTSIDE RECORDS SUMMARY | 2023-01-04 21:40 | XMS_ITS | Continuity of Care Document ---
Author Name Unknown Organization [facility] Address [address] [place] [address]- Care Team Providers Care Greenkeeper Name Role Phone Sadaf Dawkins MD Primary Care Physician En[place] [facility] Date(s): 04/23/20 - 06/05/[address] [address]- [facility] Attending Physician: Chandana Mallory MD Admitting Physician: Chandana Mallory MD Allergies, Adverse Reactions, Alerts Substance Reaction Severity Status Milk Products Resolved Pork Active Immunizations Given and Recorded Vaccine Date Status Refusal Reason tetanus/diphtheria/pertussis, acel(Tdap) 10/24/13 Given Medications Abilify 10 mg oral tablet 10 mg, 1, tablet, By Mouth, Daily, # 30 tablet, Refills 0, Tot. Refills 0, Maintenance, 05/22/20 14:30:00 EDT, Route to Pharmacy Electronically, [facility] #[id number], 168, cm, 05/22/20 14:15:00 EDT, Height, 83.7, kg, 04/29/20 15:56:00 EDT, Dry... Start Date: 05/22/20 Status: Ordered Actigall 300 mg oral capsule 300 mg, 1, capsule, By Mouth, 3 times a day, # 90 capsule, Refills 1, Tot. Refills 1, Maintenance, 05/29/20 13:47:00 EDT, Route to Pharmacy Electronically, [facility] #[id number], 168, cm, 05/26/20 15:33:00 EDT, Height, 83.58, kg, 05/26/20 15:33:... Start Date: 05/29/20 Status: Ordered albuterol CFC free 90 mcg/inh inhalation aerosol 2, puffs, Inhalation, 4 times a day, PRN, # 25 Gm, Refills 5, Tot. Refills 5, Maintenance, 01/09/2018:29:00 EDT, Aerosol, Route to Pharmacy Electronically, [id number], [facility] #71712, 168, cm, 01/10/20 15:21:00... Start Date: 01/10/20 Status: Ordered Plus Iron oral tablet 1 tablet, By Mouth, Daily, # 30 tablet, 11 Refills, Maintenance, 05/22/20 14:31:00 EDT, Tablet, [facility] #27747, 1 tablet By Mouth Daily, 168, cm, 05/22/20 14:15:00 EDT, Height, 83.7, kg,04/29/20 15:56:00 EDT, Dry Weight Start Date: 05/22/20 Status: Ordered promethazine 12.5 mg rectal suppository 1 supp = 12.5 mg, Rectally, Every 6 hours, PRN for nausea/vomiting, # 40 supp, 1 Refills, Maintenance, 05/29/20 13:45:00 EDT, Suppository, [facility] #42283, 168, cm, 05/26/20 15:33:00 EDT,Height, 83.58, kg, 05/26/20 15:33:00 EDT, Dry Weight Start Date: 05/29/20 Status: Ordered Zofran 4 mg oral tablet See Instructions, 1 tablet By Mouth Daily, # 20 each, 1 Refills, Maintenance, 05/12/20 16:49:00 EDT, [facility] #47530, 168, cm, 04/29/20 15:56:00 EDT, Height, 83.7, [...] Care Management [facility] , Nela Byrd [facility] [phone](Confirmed) Active Posttraumatic stress disorder(Confirmed) Active (Confirmed) Active [...]
--- OUTSIDE RECORDS SUMMARY | 2023-01-04 21:40 | XMS_ITS | Continuity of Care Document ---
Author Name Unknown Organization [facility] Address [address] [place] [address]- Care Team Providers Care Apn Name Role Phone Checo John Primary Care Physician Encounter [facility] Date(s): 03/11/22 - 04/10/22 [facility] [address] [place] [address]- Allergies, Adverse Reactions, Alerts Substance Reaction Severity [...] 16:07:00 EST, Aerosol, Route to Pharmacy Electronically, [id number], [facility][id number], 168, cm, 08/20/21 15:40:... Start Date: 08/20/21 [...] Obese class I(Confirmed) Active N Care Management [facility] Jolanta Scarlett Anton [phone](Confirmed) Active Posttraumatic stress disorder(Confirmed) Active (Confirmed) Active Urinary incontinence(Confirmed) Active Ventricular ectopy(Confirmed) Active 1Hx suicide attempt Social History Social History Type Response Smoking Status Former smoker, quit more than 30 days ago entered on: 11/11/21 Sex 1Has been off since 2006
--- OUTSIDE RECORDS SUMMARY | 2023-01-04 21:40 | XMS_ITS | Continuity of Care Document ---
Author Name Unknown Organization [facility] Address [address] [place] [address], [address] [place] [address]- Care Team Providers Care Stone Hand Name Role Phone Sadaf Dawkins MD Primary Care Physician Encounter [facility] Date(s): 05/13/20 - 06/21/20 [facility] [address] [facility], [address] [place] [address]- [facility] Attending Physician: Lilia Miller MD Referring [...] Route to Pharmacy Electronically, [facility] #[id number], 168, cm, 05/22/20 14:15:00 EDT, Height, 83.7, kg, 04/29/20 15:56:00 EDT, Dry... Start Date: 05/22/20 Status: Ordered Actigall 300 mg oral capsule 300 mg, 1, capsule, By Mouth, 3 times a day, # 90 capsule, Refills 1, Tot. Refills 1, Maintenance, 05/29/20 13:47:00 EDT, Route to Pharmacy Electronically, [facility] #[id number], 168, cm, 05/26/20 15:33:00 EDT, Height, 83.58, kg, 05/26/20 15:33:... Start Date: 05/29/20 Status: Ordered albuterol CFC free 90 mcg/inh inhalation aerosol 2, puffs, Inhalation, 4 times a day, PRN, # 25 Gm, Refills 5, Tot. Refills 5, Maintenance, 01/09/2018:29:00 EDT, Aerosol, Route to Pharmacy Electronically, [id number], [facility] #69721, 168, cm, 01/10/20 15:21:00... Start Date: 01/10/20 Status: Ordered ibuprofen 600 mg oral tablet 600 mg, 1, tablet, By Mouth, 4 times a day, PRN, # 40 tablet, Refills 0, Tot. Refills 0, Maintenance, Pain, 06/10/20 10:28:00 EDT, Route to Pharmacy Electronically, [facility] #00436, 168, cm, 06/10/20 9:28:00 EDT, Height, 83.58, kg, ... Start Date: 06/10/20 Status: Ordered Plus Iron oral tablet 1 tablet, By Mouth, Daily, # 30 tablet, 11 Refills, Maintenance, 05/22/20 14:31:00 EDT, Tablet, [facility] #92436, 1 tablet By Mouth Daily, 168, cm, 05/22/20 14:15:00 EDT, Height, 83.7, kg,04/29/20 15:56:00 EDT, Dry Weight Start Date: 05/22/20 Status: Ordered promethazine 12.5 mg rectal suppository 1 supp = 12.5 mg, Rectally, Every 6 hours, PRN for nausea/vomiting, # 40 supp, 1 Refills, Maintenance, 05/29/20 13:45:00 EDT, Suppository, [facility] #89660, 168, cm, 05/26/20 15:33:00 EDT,Height, 83.58, kg, [...] each, 1 Refills, Maintenance, 05/12/20 16:49:00 EDT, [facility] #[id number], 168, cm, 04/29/20 15:56:00 EDT, Height, 83.7, [...] Care Management [facility] [phone](Confirmed) Active Posttraumatic stress disorder(Confirmed) Active (Confirmed) Active [...]
--- OUTSIDE RECORDS SUMMARY | 2023-01-04 21:40 | XMS_ITS | Continuity of Care Document ---
Author Name Unknown Organization [facility] Address [address] [address]- Care Team Providers Care Optical Scientist Name Role Phone Sadaf Dawkins MD Primary Care Physician Encounter [facility] Date(s): 01/10/20 - 03/08/20 [facility] [address] [address]- [facility] Attending Physician: Juaquin Wilkins MD Admitting Physician: Juaquin Wilkins MD Referring Physician: Geovanna Ruiz CNM Allergies, [...] 01/09/2018:29:00 EDT, Aerosol, Route to Pharmacy Electronically, [id number], [facility] #[id number], 168, cm, 01/10/20 15:21:00... Start Date: 01/10/20 Status: Ordered Knee Immobilizer See Instructions, # 1 Unknown, Maintenance, wear as needed on left knee, 01/23/20 13:02:00 EDT, Compound Start Date: 01/23/20 Status: Ordered Miconazole 7 vaginal suppository 1 sprays, Vaginally, Daily at bedtime, # 7 supp, 0 Refills, Maintenance, 01/10/20 18:30:00 EDT, Suppository, [facility] #[id number], 1 sprays Vaginally Daily at bedtime, 168, cm, 01/10/20 15:21:00 EDT, Height, 88.5, kg, 01/08/20 11:24:00 EDT, Dry... Start Date: 01/10/20 Status: Ordered Plus Iron oral tablet 1 tablet, By Mouth, Daily, # 30 tablet, 11 Refills, Maintenance, 01/10/20 18:29:00 EDT, Tablet, [facility] #[id number], 1 tablet By Mouth Daily, 168, cm, [...] each, 1 Refills, Maintenance, 02/26/20 16:44:00 EDT, [facility] #[id number], 168, cm, 02/26/20 16:17:00 EDT, Height, 84, [...] Management [facility] , Nela Byrd CC [phone](Confirmed) Active Posttraumatic stress disorder(Confirmed) Active (Confirmed) Active [...]
--- OUTSIDE RECORDS SUMMARY | 2023-01-04 21:40 | XMS_ITS | Continuity of Care Document ---
Author Name Unknown Organization [facility] [place] Address [address] [place] [address]- Care Team Providers Care Tag Marker Name Role Phone Checo John Primary Care Physician Encounter [facility] Date(s): 02/10/22 - 03/12/22 [facility] [place] [address], [place] [address] Allergies, Adverse Reactions, Alerts Substance Reaction [...] 16:07:00 EST, Aerosol, Route to Pharmacy Electronically, [id number], [facility][id number], 168, cm, 08/20/21 15:40:... Start Date: 08/20/21 [...] 35+(Confirmed) Active Obese class I(Confirmed) Active [facility] Care Management [facility] , Scarlett Walton [phone](Confirmed) Active Posttraumatic stress disorder(Confirmed) Active (Confirmed) Active Urinary incontinence(Confirmed) Active Ventricular ectopy(Confirmed) Active 1Hx suicide attempt Social History Social History Type Response Smoking Status Former smoker, quit more than 30 days ago entered on: 11/11/21 Sex 1Has been off since 2006
--- OUTSIDE RECORDS SUMMARY | 2023-01-04 21:40 | XMS_ITS | Continuity of Care Document ---
Author Name Unknown Organization [facility] Address [address] [place] [address], [address] [address]- Care Team Providers Care Commercial Portfolio Manager Name Role Phone Sadaf Dawkins MD Primary Care Physician Encounter [facility] Date(s): 05/14/20 - 07/05/20 [facility] [address] [facility], [address] [place] [address]- [facility] Attending Physician: Lilia Miller MD Referring Physician: [...] 05/22/20 14:30:00 EDT, Route to Pharmacy Electronically, [facility] #[id number], 168, cm, 05/22/20 14:15:00 EDT, Height, 83.7, kg, 04/29/20 15:56:00 EDT, Dry... Start Date: 05/22/20 Status: Ordered Actigall 300 mg oral capsule 300 mg, 1, capsule, By Mouth, 3 times a day, # 90 capsule, Refills 1, Tot. Refills 1, Maintenance, 05/29/20 13:47:00 EDT, Route to Pharmacy Electronically, [facility] #[id number], 168, cm, 05/26/20 15:33:00 EDT, Height, 83.58, kg, 05/26/20 15:33:... Start Date: 05/29/20 Status: Ordered albuterol CFC free 90 mcg/inh inhalation aerosol 2, puffs, Inhalation, 4 times a day, PRN, # 25 Gm, Refills 5, Tot. Refills 5, Maintenance, 01/09/2018:29:00 EDT, Aerosol, Route to Pharmacy Electronically, [id number], [facility] #[id number], 168, cm, 01/10/20 15:21:00... Start Date: 01/10/20 Status: Ordered ibuprofen 600 mg oral tablet 600 mg, 1, tablet, By Mouth, 4 times a day, PRN, # 40 tablet, Refills 0, Tot. Refills 0, Maintenance, Pain, 06/10/20 10:28:00 EDT, Route to Pharmacy Electronically, [facility] #[id number], 168, cm, 06/10/20 9:28:00 EDT, Height, 83.58, kg, ... Start Date: 06/10/20 Status: Ordered Plus Iron oral tablet 1 tablet, By Mouth, Daily, # 30 tablet, 11 Refills, Maintenance, 05/22/20 14:31:00 EDT, Tablet, [facility] #[id number], 1 tablet By Mouth Daily, 168, cm, 05/22/20 14:15:00 EDT, Height, 83.7, kg,04/29/20 15:56:00 EDT, Dry Weight Start Date: 05/22/20 Status: Ordered promethazine 12.5 mg rectal suppository 1 supp = 12.5 mg, Rectally, Every 6 hours, PRN for nausea/vomiting, # 40 supp, 1 Refills, Maintenance, 05/29/20 13:45:00 EDT, Suppository, [facility] #33325, 168, cm, 05/26/20 15:33:00 EDT,Height, 83.58, kg, [...] each, 1 Refills, Maintenance, 05/12/20 16:49:00 EDT, [facility] #[id number], 168, cm, 04/29/20 15:56:00 EDT, Height, 83.7, [...] maternal age) multigravida 35+(Confirmed) Active Care Management [facility] Nela CC [phone](Confirmed) Active Posttraumatic stress disorder(Confirmed) Active (Confirmed) Active [...]
--- OUTSIDE RECORDS SUMMARY | 2023-01-04 21:40 | XMS_ITS | Continuity of Care Document ---
Author Name Unknown Organization [facility] Address [address] [place] [address]- Care Team Providers Care Advertising Operations Manager Name Role Phone Sadaf Dawkins MD Primary Care Phys[id number] 07/27/20 - 08/03/20 [facility] [address] [place] [address]- [facility] Attending Physician: Ye WOLF, Ishaan Referring Physician: Sadaf Dawkins MD Allergies, Adverse Reactions, Alerts Substance Reaction Severity Status Milk Products Resolved Pork Active Immunizations Given and Recorded Vaccine Date Status Refusal Reason tetanus/diphtheria/pertussis, acel(Tdap) 10/24/13 Given Medications Abilify 10 mg oral tablet 10 mg, 1, tablet, By Mouth, Daily, # 30 tablet, Refills 0, Tot. Refills 0, Maintenance, 05/22/20 14:30:00 EDT, Route to Pharmacy Electronically, [facility] #[id number], 168, cm, 05/22/20 14:15:00 EDT, Height, 83.7, kg, 04/29/20 15:56:00 EDT, Dry... Start Date: 05/22/20 Status: Ordered Actigall 300 mg oral capsule 300 mg, 1, capsule, By Mouth, 3 times a day, # 90 capsule, Refills 1, Tot. Refills 1, Maintenance, 05/29/20 13:47:00 EDT, Route to Pharmacy Electronically, [facility] #[id number], 168, cm, 05/26/20 15:33:00 EDT, Height, 83.58, kg, 05/26/20 15:33:... Start Date: 05/29/20 Status: Ordered albuterol CFC free 90 mcg/inh inhalation aerosol 2, puffs, Inhalation, 4 times a day, PRN, # 25 Gm, Refills 5, Tot. Refills 5, Maintenance, 01/09/2018:29:00 EDT, Aerosol, Route to Pharmacy Electronically, [id number], [facility] #[id number], 168, cm, 01/10/20 15:21:00... Start Date: 01/10/20 Status: Ordered Diflucan 150 mg oral tablet See Instructions, 1 tablet By Mouth now, then repeat in 5 days if symptoms persist, # 2 tablet, 0 Refills, Maintenance, 07/31/20 9:54:00 EDT, Tablet, [facility] #[id number], 168, cm, 07/27/20 17:38:00 EDT, Height, 86.3, kg, 07/27/20 17:59:00 EDT,... Start Date: 07/31/20 Status: Ordered ibuprofen 600 mg oral tablet 600 mg, 1, tablet, By Mouth, 4 times a day, PRN, # 40 tablet, Refills 0, Tot. Refills 0, Maintenance, Pain, 06/10/20 10:28:00 EDT, Route to Pharmacy Electronically, [facility] #[id number], 168, cm, 06/10/20 9:28:00 EDT, Height, 83.58, kg, ... Start Date: 06/10/20 Status: Ordered metroNIDAZOLE 500 mg oral tablet 1 tablet = 500 mg, By Mouth, Every 12 hours, for 7 days, do not drink alcohol may take with food tominimize abdominal discomfort, # 14 tablet, 0 Refills, Acute 08/07/20 9:54:00 EDT, 07/31/20 9:54:00EDT, Tablet, [facility] #[id number], 168, cm,... Start Date: 07/31/20 Stop Date: 08/07/20 Status: Ordered Miconazole 3 vaginal suppository 1 supp = 200 mg, Vaginally, Daily at bedtime, # 3 supp, 0 Refills, Acute 08/05/20 18:13:00 EDT, 07/29/20 18:12:00 EDT, [facility] #[id number], 168, cm, 07/27/20 17:38:00 EDT, Height, 86.3, kg, 07/27/20 17:59:00 EDT, Dry Weight Start Date: 07/29/20 Stop Date: 08/05/20 Status: Ordered Plus Iron oral tablet 1 tablet, By Mouth, Daily, # 30 tablet, 11 Refills, Maintenance, 05/22/20 14:31:00 EDT, Tablet, [facility] #[id number], 1 tablet By Mouth Daily, 168, cm, 05/22/20 14:15:00 EDT, Height, 83.7, kg,04/29/20 15:56:00 EDT, Dry Weight Start Date: 05/22/20 Status: Ordered promethazine 12.5 mg rectal suppository 1 supp = 12.5 mg, Rectally, Every 6 hours, PRN for nausea/vomiting, # 40 supp, 1 Refills, Maintenance, 05/29/20 13:45:00 EDT, Suppository, [facility] #[id number], 168, cm, 05/26/20 15:33:00 EDT,Height, 83.58, kg, [...] each, 1 Refills, Maintenance, 05/12/20 16:49:00 EDT, [facility] #85157, 168, cm, 04/29/20 15:56:00 EDT, Height, 83.7, [...] maternal age) multigravida 35+(Confirmed) Active Care Management [facility] , Nela Byrd [facility] [phone](Confirmed) Active Posttraumatic stress disorder(Confirmed) Active (Confirmed) Active Sarcoid(Confirmed) 2 Active Urinary incontinence(Confirmed) Active 1Hx suicide attempt 2Possible dx sarcoid. Hx recurrent right uveitis. Elevated MELISSA level. PET w/ increased uptake in parotids. Vital Signs Most recent to oldest [Reference Range]: 1 Height 168 cm (07/27/20 5:38 PM) Weight 86.3 kg (07/27/20 5:38 PM) Oxygen Saturation [94-100 %] 100 % (07/27/20 5:38 PM) Pulse Rate [55-90 bpm] 85 bpm (07/27/20 5:38 PM) Body Mass Index [18.5-24.99] 30.58 *>HHI* (07/27/20 5:38 PM) Blood Pressure [90-138/55-84 mm Hg] 112/ 72mm Hg (07/27/20 5:38 PM) Respiratory Rate [16-30 br/min] 16 br/mi n (07/27/20 5:38 PM) Temperature [96.8-100.4 DegF] 96.9 DegF (07/27/20 5:38 PM) Mode of Delivery (Oxygen) Room air (07/27/20 5:38 PM) Blood pressure sites Arm, right (07/27/20 5:38 PM) Temperature Route Temporal (07/27/20 5:38 PM) Dry Weight 86.3 kg (07/27/20 5:38 PM) Weight Obtained Via Standing scale (07/27/20 5:38 PM) Dry Weight Obtained Via Standing scale (07/27/20 5:38 PM) Social History Social History Type Response Smoking Status Former smoker; Type: Cigarettes; Tobacco use times per day: 1 pack/week; 1 entered on: 10/24/13 Sex 1Has been off since 2006
--- OUTSIDE RECORDS SUMMARY | 2023-01-04 21:40 | XMS_ITS | Continuity of Care Document ---
Author Name Unknown Organization [facility] Address [address] [address]- Care Team Providers Care Delphi Developer Name Role Phone Checo John Primary Care Physician [phone] Encounter [facility] R [id number] Date(s): 05/18/22 - 06/17/22 [facility] [address] [address]- Attending Physician: Ora Brown Admitting Physician: AdmtrOra [...] 16:07:00 EST, Aerosol, Route to Pharmacy Electronically, [id number], [facility] #[id number], 195, cm, 08/20/21 15:40:... Start Date: 08/20/21 Stop [...] I(Confirmed) Active [facility] Care Management [facility] , Scarlett Walton [phone](Confirmed) Active Posttraumatic stress disorder(Confirmed) Active (Confirmed) Active Urinary incontinence(Confirmed) Active Ventricular ectopy(Confirmed) Active 1Hx suicide attempt Social History Social History Type Response Smoking Status Former smoker, quit more than 30 days ago entered on: 11/11/21 Sex 1Has been off since 2006 Care Team Personnel Name: Checo John Address: [address] [place] [address] [place], [place] [address]
--- OUTSIDE RECORDS SUMMARY | 2023-01-04 21:40 | XMS_ITS | Continuity of Care Document ---
Author Name Unknown Organization [facility] Address [address] [place] [address]- Care Team Providers Care Traffic Signal Repairer Name Role Phone Checo John Primary Care Physician Encounter [facility] ACCT R [id number] Date(s): 07/08/22 - 07/15/22 [facility] [address] [place], [place] [address] Attending Physician: Andry Herrera DO Referring Physician: [...] 16:07:00 EST, Aerosol, Route to Pharmacy Electronically, [id number], [facility][id number], 168, cm, 08/20/21 15:40:... Start Date: 08/20/21 [...] Refills, Soft Stop, 07/08/22 12:02:00 EDT, Tablet, [facility] #[id number], Partial fill upon patient request if the [...] class I Confirmed Active N Care Management [facility], Scarlett Walton [phone] Confirmed Active Posttraumatic stress disorder Confirmed Active Confirmed Active Urinary incontinence Confirmed Active Ventricular ectopy Confirmed Active 1Hx suicide attempt Vital Signs Most recent to oldest [Reference Range]: 1 Height 168 cm (07/08/22 11:32 AM) Oxygen Saturation [94-100 %] 99 % (07/08/22 11:32 AM) Pulse Rate [55-90 bpm] 93 bpm *H* (07/08/22 11:32 AM) Blood Pressure [90-138/55-84 mm Hg] 124/ 69mm Hg (07/08/22 11:32 AM) Temperature [96.8-100.4 DegF] 97.1 DegF (07/08/22 11:32 AM) Mode of Delivery (Oxygen) Room air (07/08/22 11:32 AM) Blood pressure sites Arm, right (07/08/22 11:32 AM) Temperature Route Temporal (07/08/22 11:32 AM) Social History Social History Type Response Smoking Status Former smoker, quit more than 30 days ago entered on: 11/11/21 Sex 1Has been off since 2006 Patient Care team information Personnel Name: Checo John Address: Address: [address] [place] [address]
--- OUTSIDE RECORDS SUMMARY | 2023-01-04 21:40 | XMS_ITS | Continuity of Care Document ---
Author Name Unknown Organization [facility] Address [address] [place] [address]- Care Team Providers Care Local Company Truck Driver Name Role Phone Sadaf Dawkins MD Primary Care Physician Encounter [facility] Date(s): 07/27/21 - 08/26/[address] [address]- Allergies, Adverse Reactions, Alerts Substance Reaction Severity [...] 16:07:00 EST, Aerosol, Route to Pharmacy Electronically, [id number], [facility][id number], 616, cm, 08/20/21 15:40:... Start Date: 08/20/21 Stop [...] Active Obese class I(Confirmed) Active Care Management [facility] [...]
--- OUTSIDE RECORDS SUMMARY | 2023-01-04 21:40 | XMS_ITS | Continuity of Care Document ---
Author Name Unknown Organization [facility] Address [address] [address]- Care Team Providers Care Home Health Speech Therapist Name Role Phone Checo John Primary Care Physician Encounter [facility] ACCT R [id number] Date(s): 05/25/22 - 06/24/22 [facility] [address] [address]- [place] Allergies, Adverse Reactions, Alerts Substance Reaction [...] 16:07:00 EST, Aerosol, Route to Pharmacy Electronically, [id number], [facility] #[id number], 168, cm, 08/20/21 15:40:... Start Date: 08/20/21 [...] multigravida 35+(Confirmed) Active Obese class I(Confirmed) Active [facility] Care Management [facility] , Scarlett Walton [phone](Confirmed) Active Posttraumatic stress disorder(Confirmed) Active (Confirmed) Active Urinary incontinence(Confirmed) Active Ventricular ectopy(Confirmed) Active 1Hx suicide attempt Social History Social History Type Response Smoking Status Former smoker, quit more than 30 days ago entered on: 11/11/21 Sex 1Has been off since 2006 Care Team Personnel Name: Checo John Address: [address] [place] [address] [place], [place] [address]
--- OUTSIDE RECORDS SUMMARY | 2023-01-04 21:40 | XMS_ITS | Continuity of Care Document ---
Author Name Unknown Organization [facility] Address [address] [place] [address]- Care Team Providers Care Wood Finisher Name Role Phone Sadaf Dawkins MD Primary Care Physician En[facility] Date(s): 08/19/21 - 09/18/[address] [address]- Allergies, Adverse Reactions, Alerts Substance Reaction Severity [...] 16:07:00 EST, Aerosol, Route to Pharmacy Electronically, [id number], [facility] #[id number], 204, cm, 08/20/21 15:40:... Start Date: 08/20/21 Stop [...] multigravida 35+(Confirmed) Active Obese class I(Confirmed) Active [facility] Care Management [facility] , Scarlett Anton [phone](Confirmed) Active Posttraumatic stress disorder(Confirmed) Active (Confirmed) Active [...]
--- OUTSIDE RECORDS SUMMARY | 2023-01-04 21:40 | XMS_ITS | Continuity of Care Document ---
Author Name Unknown Organization [facility] Address [address] [place] [address]- Care Team Providers Care Preanalytics Team [place] Name Role Phone Sadaf Dawkins MD Primary Care Physician Encounter [facility] Date(s): 07/14/21 - 08/13/[address] [address] Allergies, Adverse Reactions, Alerts Substance Reaction Severity Status Milk Products Resolved Pork Active Immunizations Given and Recorded Vaccine Date Status Refusal Reason tetanus/diphtheria/pertussis, acel(Tdap) 10/24/13 Given Medications albuterol CFC free 90 mcg/inh inhalation aerosol 2, puffs, Inhalation, 4 times a day, PRN, # 1 each, Refills 11, Tot. Refills 11, Maintenance, 04/14/21 14:17:00 EDT, Aerosol, Route to Pharmacy Electronically, [id number], [facility] #[id number], 168, cm, 04/14/21 14:05:... Start Date: 04/14/21 [...] 35+(Confirmed) Active Care Management [facility] (Confirmed) Active Posttraumatic stress disorder(Confirmed) [...]
--- OUTSIDE RECORDS SUMMARY | 2023-01-04 21:40 | XMS_ITS | Continuity of Care Document ---
Author Name Unknown Organization [facility] Address [address] [place] [address]- Care Team Providers Care Director Of Securities And Real Estate Name Role Phone Sadaf Dawkins MD Primary Care Physician [phone] Encounter [facility] Date(s): 04/19/21 - 05/19/[address] [address] Allergies, Adverse [...] 14:17:00 EDT, Aerosol, Route to Pharmacy Electronically, [id number], [facility] #[id number], 168, cm, 04/14/21 14:05:... Start Date: 04/14/21 [...] Active Care Management [facility] (Confirmed) Active Posttraumatic stress disorder(Confirmed) Active [...]
--- OUTSIDE RECORDS SUMMARY | 2023-01-04 21:40 | XMS_ITS | Continuity of Care Document ---
Author Name Unknown Organization [facility] Address [address] [place] [address]- Care Team Providers Care Barrel Assembler Helper Name Role Phone Sadaf Dawkins MD Primary Care Physician [phone] Encounter [facility] Date(s): 06/17/21 - 08/13/[address] [address]- Attending Physician: Not on Staff, Attending MD Referring Physician: Austin Solis III, MD Allergies, Adverse Reactions, Alerts Substance Reaction Severity Status Milk Products Resolved Pork Active Immunizations Given and Recorded Vaccine Date Status Refusal Reason tetanus/diphtheria/pertussis, acel(Tdap) 10/24/13 Given Medications albuterol CFC free 90 mcg/inh inhalation aerosol 2, puffs, Inhalation, 4 times a day, PRN, # 1 each, Refills 11, Tot. Refills 11, Maintenance, 04/14/21 14:17:00 EDT, Aerosol, Route to Pharmacy Electronically, [id number], [facility] #[id number], 168, cm, 04/14/21 14:05:... Start Date: 04/14/21 [...] maternal age) multigravida 35+(Confirmed) Active Care Management [facility] (Confirmed) Active Posttraumatic stress disorder(Confirmed) [...]
--- OUTSIDE RECORDS SUMMARY | 2023-01-04 21:40 | XMS_ITS | Continuity of Care Document ---
Author Name Unknown Organization [facility] Address [address] [place] [address]- Care Team Providers Care Plant Safety Engineer Name Role Phone Checo John Primary Care Physician Encounter [facility] Date(s): 11/30/22 - 12/30/22 [facility] [address] [place], [place] [address] Attending Physician: Ora Brown Admitting Physician: AdmtrOra [...] 16:07:00 EST, Aerosol, Route to Pharmacy Electronically, [id number], [facility][id number], 130, cm, 08/20/21 15:40:... Start Date: 08/20/21 Stop [...] Refills, Soft Stop, 07/08/22 12:02:00 EDT, Tablet, [facility][id number], Partial fill upon patient request if the prescription is for a schedule... Start Date: 07/08/22 Status: Ordered fluconazole 150 mg oral tablet 1 tablet = 150 mg, By Mouth, Once, Repeat dose if still having symptoms in 72 hours, # 2 tablet, 0 Refills, Soft Stop, 12/06/22 9:23:00 EST, Tablet, [facility]55507, Partial fill upon patient request if the [...] Confirmed Active Obese class I Confirmed Active [facility] [phone] Confirmed Active Posttraumatic stress disorder Confirmed Active [...] Member Role: Primary Care Nurse Address: Address: [address] [place] [address] [place] Name: Mally Ham RN Position: S RN Member Role: Primary Care Nurse Name: Checo John [facility] PCO Associate Professional Member Role: PCP Address: Address: [address] [place] [address] [place] [address]- Name: Rossana Avalos RN Position[facility] RN Member Role: Primary Care Nurse Care Team Related Persons Name: PASQUALE REID Address: home [address] [place] [address] Name: ANICETO LUNA Address: home [address] [place] [address] Name: NAIMA LUNA Address: Address: home [address] [place] [address] [place] Name: PT STATES NO ONE, NONE
--- OUTSIDE RECORDS SUMMARY | 2023-01-04 21:40 | XMS_ITS | Continuity of Care Document ---
Author Name Unknown Organization [facility] Address [address] [place] [address]- Care Team Providers Care Waste Water Treatment Plant Operator Name Role Phone Checo John Primary Care Physician En[facility] Date(s): 05/25/22 - 06/24/22 [facility] [address] [place] [address] Allergies, Adverse Reactions, Alerts Substance Reaction [...] 16:07:00 EST, Aerosol, Route to Pharmacy Electronically, [id number], [facility][id number], 168, cm, 08/20/21 15:40:... Start Date: 08/20/21 [...] multigravida 35+(Confirmed) Active Obese class I(Confirmed) Active [facility] Care Management [facility] , Scarlett Walton [phone](Confirmed) Active Posttraumatic stress disorder(Confirmed) Active (Confirmed) Active Urinary incontinence(Confirmed) Active Ventricular ectopy(Confirmed) Active 1Hx suicide attempt Social History Social History Type Response Smoking Status Former smoker, quit more than 30 days ago entered on: 11/11/21 Sex 1Has been off since 2006 Care Team Personnel Name: Checo John Address: [address] [place] [address] Primary [place], [place] [address]
--- OUTSIDE RECORDS SUMMARY | 2023-01-04 21:40 | XMS_ITS | Continuity of Care Document ---
Author Name Unknown Organization [facility] Address [address] [place] [address]- Care Team Providers Care Combination Technician Name Role Phone Checo John Primary Care Physician [phone] Encounter [facility] NBR [id number] Date(s): 11/17/21 - 12/17/21 [facility] [address] [place] [address]- [place] Allergies, Adverse Reactions, Alerts Substance Reaction [...] 16:07:00 EST, Aerosol, Route to Pharmacy Electronically, [id number], [facility] #[id number], 168, cm, 08/20/21 15:40:... Start Date: 08/20/21 [...] I(Confirmed) Active [facility] Care Management [facility] , Scarlett Walton [phone](Confirmed) Active Posttraumatic stress disorder(Confirmed) Active (Confirmed) Active Sarcoid(Confirmed) 2 Active Urinary incontinence(Confirmed) Active Ventricular ectopy(Confirmed) Active 1Hx suicide attempt 2Possible dx sarcoid. Hx recurrent right uveitis. Elevated MELISSA level. PET w/ increased uptake in parotids. Vital Signs Most recent to oldest [Reference Range]: 1 Height 168 cm (11/22/21 8:42 AM) Weight 91.4 kg (11/22/21 8:42 AM) Social History Social History Type Response Smoking Status Former smoker, quit more than 30 days ago entered on: 11/11/21 Sex 1Has been off since 2006
--- OUTSIDE RECORDS SUMMARY | 2023-01-04 21:40 | XMS_ITS | Continuity of Care Document ---
Author Name Unknown Organization [facility] Address [address] [address]- Care Team Providers Care Marketing Segment Manager Name Role Phone Sadaf Dawkins MD Primary Care Physician En[facility] [place] Date(s): 06/05/20 - 07/05/20 [facility] [address] [address]- [facility] Allergies, Adverse Reactions, Alerts Substance Reaction Severity Status Milk Products Resolved Pork Active Immunizations Given and Recorded Vaccine Date Status Refusal Reason tetanus/diphtheria/pertussis, acel(Tdap) 10/24/13 Given Medications Abilify 10 mg oral tablet 10 mg, 1, tablet, By Mouth, Daily, # 30 tablet, Refills 0, Tot. Refills 0, Maintenance, 05/22/20 14:30:00 EDT, Route to Pharmacy Electronically, [facility] #[id number], 168, cm, 05/22/20 14:15:00 EDT, Height, 83.7, kg, 04/29/20 15:56:00 EDT, Dry... Start Date: 05/22/20 Status: Ordered Actigall 300 mg oral capsule 300 mg, 1, capsule, By Mouth, 3 times a day, # 90 capsule, Refills 1, Tot. Refills 1, Maintenance, 05/29/20 13:47:00 EDT, Route to Pharmacy Electronically, [facility] #[id number], 168, cm, 05/26/20 15:33:00 EDT, Height, 83.58, kg, 05/26/20 15:33:... Start Date: 05/29/20 Status: Ordered albuterol CFC free 90 mcg/inh inhalation aerosol 2, puffs, Inhalation, 4 times a day, PRN, # 25 Gm, Refills 5, Tot. Refills 5, Maintenance, 01/09/2018:29:00 EDT, Aerosol, Route to Pharmacy Electronically, [id number], [facility] #[id number], 168, cm, 01/10/20 15:21:00... Start Date: 01/10/20 Status: Ordered ibuprofen 600 mg oral tablet 600 mg, 1, tablet, By Mouth, 4 times a day, PRN, # 40 tablet, Refills 0, Tot. Refills 0, Maintenance, Pain, 06/10/20 10:28:00 EDT, Route to Pharmacy Electronically, [facility] #[id number], 168, cm, 06/10/20 9:28:00 EDT, Height, 83.58, kg, ... Start Date: 06/10/20 Status: Ordered Plus Iron oral tablet 1 tablet, By Mouth, Daily, # 30 tablet, 11 Refills, Maintenance, 05/22/20 14:31:00 EDT, Tablet, [facility] #[id number], 1 tablet By Mouth Daily, 168, cm, 05/22/20 14:15:00 EDT, Height, 83.7, kg,04/29/20 15:56:00 EDT, Dry Weight Start Date: 05/22/20 Status: Ordered promethazine 12.5 mg rectal suppository 1 supp = 12.5 mg, Rectally, Every 6 hours, PRN for nausea/vomiting, # 40 supp, 1 Refills, Maintenance, 05/29/20 13:45:00 EDT, Suppository, [facility] #[id number], 168, cm, 05/26/20 15:33:00 EDT,Height, 83.58, kg, [...] each, 1 Refills, Maintenance, 05/12/20 16:49:00 EDT, [facility] #[id number], 168, cm, 04/29/20 15:56:00 EDT, Height, 83.7, [...] multigravida 35+(Confirmed) Active Care Management [facility] , Nela Byrd [phone](Confirmed) Active Posttraumatic stress disorder(Confirmed) Active (Confirmed) Active [...]
--- OUTSIDE RECORDS SUMMARY | 2023-01-04 21:40 | XMS_ITS | Continuity of Care Document ---
Author Name Unknown Organization [facility] Address [address] [place] [address]- Care Team Providers Care Head Mva Reactor Operator Name Role Phone Checo John Primary Care Physician Encounter [facility] Date(s): 02/14/22 - 03/16/22 [facility] [address] [place], [place] [address] Allergies, Adverse Reactions, Alerts Substance Reaction [...] 16:07:00 EST, Aerosol, Route to Pharmacy Electronically, [id number], [facility][id number], 168, cm, 08/20/21 15:40:... Start Date: 08/20/21 [...] multigravida 35+(Confirmed) Active Obese class I(Confirmed) Active [facility] Care Management [facility] , Scarlett Walton [phone](Confirmed) Active Posttraumatic stress disorder(Confirmed) Active (Confirmed) Active Urinary incontinence(Confirmed) Active Ventricular ectopy(Confirmed) Active 1Hx suicide attempt Social History Social History Type Response Smoking Status Former smoker, quit more than 30 days ago entered on: 11/11/21 Sex 1Has been off since 2006
--- OUTSIDE RECORDS SUMMARY | 2023-01-04 21:40 | XMS_ITS | Continuity of Care Document ---
Author Name Unknown Organization [facility] Address [address] [place] [address], [address] [place] [address]- Care Team Providers Care Stock Lifter Name Role Phone Sadaf Dawkins MD Primary Care Physician En[facility] Date(s): 03/17/21 - 04/16/21 [facility] [employer] [address] [facility] [place] [facility], [address] [place] [address]- Attending Physician: Ora Brown Admitting Physician: AdmtrOra Referring Physician: Admtr, ArQuita Allergies, Adverse Reactions, Alerts Substance Reaction Severity Status Milk Products Resolved Pork Active Immunizations Given and Recorded Vaccine Date Status Refusal Reason tetanus/diphtheria/pertussis, acel(Tdap) 10/24/13 Given Medications albuterol CFC free 90 mcg/inh inhalation aerosol 2, puffs, Inhalation, 4 times a day, PRN, # 1 each, Refills 11, Tot. Refills 11, Maintenance, 04/14/21 14:17:00 EDT, Aerosol, Route to Pharmacy Electronically, [id number], [facility] #[id number], 168, cm, 04/14/21 14:05:... Start Date: 04/14/21 [...] Management [facility] [place] (Confirmed) Active Posttraumatic stress disorder(Confirmed) Active (Confirmed) [...]
--- OUTSIDE RECORDS SUMMARY | 2023-01-04 21:40 | XMS_ITS | Continuity of Care Document ---
Author Name Unknown Organization [facility] Address [address] [place] [address]- Care Team Providers Care Geospatial Developer Name Role Phone Checo John Primary Care Physician [place] [facility] [place] [facility] [place] [id number] Date(s): 06/24/22 - 07/01/22 [facility] [address] [place] [address]- Attending Physician: Andry Herrera DO Referring Physician: [...] 16:07:00 EST, Aerosol, Route to Pharmacy Electronically, [id number], [facility] #[id number], 168, cm, 08/20/21 15:40:... Start Date: 08/20/21 [...] multigravida 35+(Confirmed) Active Obese class I(Confirmed) Active [facility] Care Management [facility] , Scarlett Walton [phone](Confirmed) Active Posttraumatic stress disorder(Confirmed) Active (Confirmed) Active Urinary incontinence(Confirmed) Active Ventricular ectopy(Confirmed) Active 1Hx suicide attempt Social History Social History Type Response Smoking Status Former smoker, quit more than 30 days ago entered on: 11/11/21 Sex 1Has been off since 2006 Care Team Personnel Name: Checo John Address: [address] [place] [address] [place], [place] [address]
--- OUTSIDE RECORDS SUMMARY | 2023-01-04 21:40 | XMS_ITS | Continuity of Care Document ---
Author Name Unknown Organization [facility] Address [address] [address]- Care Team Providers Care Systems Program Manager Name Role Phone Sadaf Dawkins MD Primary Care Physician [place] [facility] Date(s): 05/11/20 - 06/10/20 [facility] [address] [address]- [facility] Allergies, Adverse Reactions, Alerts Substance Reaction Severity Status Milk Products Resolved Pork Active Immunizations Given and Recorded Vaccine Date Status Refusal Reason tetanus/diphtheria/pertussis, acel(Tdap) 10/24/13 Given Medications Abilify 10 mg oral tablet 10 mg, 1, tablet, By Mouth, Daily, # 30 tablet, Refills 0, Tot. Refills 0, Maintenance, 05/22/20 14:30:00 EDT, Route to Pharmacy Electronically, [facility] #[id number], 168, cm, 05/22/20 14:15:00 EDT, Height, 83.7, kg, 04/29/20 15:56:00 EDT, Dry... Start Date: 05/22/20 Status: Ordered Actigall 300 mg oral capsule 300 mg, 1, capsule, By Mouth, 3 times a day, # 90 capsule, Refills 1, Tot. Refills 1, Maintenance, 05/29/20 13:47:00 EDT, Route to Pharmacy Electronically, [facility] #[id number], 168, cm, 05/26/20 15:33:00 EDT, Height, 83.58, kg, 05/26/20 15:33:... Start Date: 05/29/20 Status: Ordered albuterol CFC free 90 mcg/inh inhalation aerosol 2, puffs, Inhalation, 4 times a day, PRN, # 25 Gm, Refills 5, Tot. Refills 5, Maintenance, 01/09/2018:29:00 EDT, Aerosol, Route to Pharmacy Electronically, [id number], [facility] #[id number], 168, cm, 01/10/20 15:21:00... Start Date: 01/10/20 Status: Ordered ibuprofen 600 mg oral tablet 600 mg, 1, tablet, By Mouth, 4 times a day, PRN, # 40 tablet, Refills 0, Tot. Refills 0, Maintenance, Pain, 06/10/20 10:28:00 EDT, Route to Pharmacy Electronically, [facility] #[id number], 168, cm, 06/10/20 9:28:00 EDT, Height, 83.58, kg, ... Start Date: 06/10/20 Status: Ordered Plus Iron oral tablet 1 tablet, By Mouth, Daily, # 30 tablet, 11 Refills, Maintenance, 05/22/20 14:31:00 EDT, Tablet, [facility] #[id number], 1 tablet By Mouth Daily, 168, cm, 05/22/20 14:15:00 EDT, Height, 83.7, kg,04/29/20 15:56:00 EDT, Dry Weight Start Date: 05/22/20 Status: Ordered promethazine 12.5 mg rectal suppository 1 supp = 12.5 mg, Rectally, Every 6 hours, PRN for nausea/vomiting, # 40 supp, 1 Refills, Maintenance, 05/29/20 13:45:00 EDT, Suppository, [facility] #[id number], 168, cm, 05/26/20 15:33:00 EDT,Height, 83.58, kg, [...] each, 1 Refills, Maintenance, 05/12/20 16:49:00 EDT, [facility] #[id number], 168, cm, 04/29/20 15:56:00 EDT, Height, 83.7, [...] [place] [facility] , Nela Byrd CC [phone](Confirmed) Active Posttraumatic stress disorder(Confirmed) Active (Confirmed) Active [...]
--- OUTSIDE RECORDS SUMMARY | 2023-01-04 21:40 | XMS_ITS | Continuity of Care Document ---
Author Name Unknown Organization [facility] [place] Address [address] [place] [address]- Care Team Providers Care Nursing Clinical Director Name Role Phone Checo John Primary Care Physician [phone] Encounter [facility] Date(s): 02/25/22 - 03/27/22 [facility] [place] [address] [place], [place] [address] Allergies, Adverse Reactions, Alerts Substance [...] 16:07:00 EST, Aerosol, Route to Pharmacy Electronically, [id number], [id number], 168, cm, 08/20/21 15:40:... Start Date: 08/20/21 [...] multigravida 35+(Confirmed) Active Obese class I(Confirmed) Active [facility] Care Management [facility] , Scarlett Walton [phone](Confirmed) Active Posttraumatic stress disorder(Confirmed) Active (Confirmed) Active Urinary incontinence(Confirmed) Active Ventricular ectopy(Confirmed) Active 1Hx suicide attempt Social History Social History Type Response Smoking Status Former smoker, quit more than 30 days ago entered on: 11/11/21 Sex 1Has been off since 2006
--- OUTSIDE RECORDS SUMMARY | 2023-01-04 21:40 | XMS_ITS | Continuity of Care Document ---
Author Name Unknown Organization [facility] Address [address] [place] [address]- Care Team Providers Care Card Grinder Helper Name Role Phone Sadaf Dawkins MD Primary Care Physician [phone] [place] [facility] Date(s): 05/13/21 - 06/12/[address] [address] Allergies, Adverse Reactions, Alerts Substance Reaction Severity Status Milk Products Resolved Pork Active Immunizations Given and Recorded Vaccine Date Status Refusal Reason tetanus/diphtheria/pertussis, acel(Tdap) 10/24/13 Given Medications albuterol CFC free 90 mcg/inh inhalation aerosol 2, puffs, Inhalation, 4 times a day, PRN, # 1 each, Refills 11, Tot. Refills 11, Maintenance, 04/14/21 14:17:00 EDT, Aerosol, Route to Pharmacy Electronically, [id number], [facility] #[id number], 168, cm, 04/14/21 14:05:... Start Date: 04/14/21 [...]
--- OUTSIDE RECORDS SUMMARY | 2023-01-04 21:40 | XMS_ITS | Continuity of Care Document ---
Author Name Unknown Organization [facility] Address [address] [place] [address]- Care Team Providers Care Senior Restaurant Manager Name Role Phone Sadaf Dawkins MD Primary Care Physician [phone] Encounter [facility] [place] Date(s): 05/07/21 - 06/06/[address] [address] Allergies, Adverse Reactions, Alerts Substance Reaction Severity Status Milk Products Resolved Pork Active Immunizations Given and Recorded Vaccine Date Status Refusal Reason tetanus/diphtheria/pertussis, acel(Tdap) 10/24/13 Given Medications albuterol CFC free 90 mcg/inh inhalation aerosol 2, puffs, Inhalation, 4 times a day, PRN, # 1 each, Refills 11, Tot. Refills 11, Maintenance, 04/14/21 14:17:00 EDT, Aerosol, Route to Pharmacy Electronically, [id number], [facility] #[id number], 168, cm, 04/14/21 14:05:... Start Date: 04/14/21 [...] 35+(Confirmed) Active Care Management [facility] [place] (Confirmed) Active Posttraumatic stress disorder(Confirmed) [...]
--- OUTSIDE RECORDS SUMMARY | 2023-01-04 21:40 | XMS_ITS | Continuity of Care Document ---
Author Name Unknown Organization [facility] Address [address] [place] [address]- Care Team Providers Care Certified Flex Endoscope Reprocessor Name Role Phone Sadaf Dawkins MD Primary Care Physician Encounter [facility] [place] Date(s): 04/06/21 - 05/06/[address] [address] Allergies, Adverse Reactions, Alerts Substance Reaction Severity Status Milk Products Resolved Pork Active Immunizations Given and Recorded Vaccine Date Status Refusal Reason tetanus/diphtheria/pertussis, acel(Tdap) 10/24/13 Given Medications albuterol CFC free 90 mcg/inh inhalation aerosol 2, puffs, Inhalation, 4 times a day, PRN, # 1 each, Refills 11, Tot. Refills 11, Maintenance, 04/14/21 14:17:00 EDT, Aerosol, Route to Pharmacy Electronically, [id number], [facility] #[id number], 168, cm, 04/14/21 14:05:... Start Date: 04/14/21 [...] 35+(Confirmed) Active Care Management [facility] [place] (Confirmed) Active Posttraumatic stress disorder(Confirmed) Active [...]
--- OUTSIDE RECORDS SUMMARY | 2023-01-04 21:40 | XMS_ITS | Continuity of Care Document ---
Author Name Unknown Organization [facility] Primary [facility] [place] Address [address] [place] [address]- Care Team Providers Care Healthcare Liaison Name Role Phone Checo John Primary Care Physician Encounter [facility] NBR [id number] Date(s): 11/17/21 - 12/17/21 [facility] Care [place] [address] [place], [place] [address] Allergies, Adverse Reactions, Alerts Substance [...] 16:07:00 EST, Aerosol, Route to Pharmacy Electronically, [id number], [facility] #[id number], 168, cm, 08/20/21 15:40:... Start Date: 08/20/21 [...] Obese class I(Confirmed) Active [facility] Care Management [facility] , Scarlett Anton [phone](Confirmed) Active Posttraumatic stress disorder(Confirmed) Active (Confirmed) Active [...]
--- OUTSIDE RECORDS SUMMARY | 2023-01-04 21:40 | XMS_ITS | Continuity of Care Document ---
Author Name Unknown Organization [facility] Address [address] [place] [address]- Care Team Providers Care Oil Well Perforator Operator Name Role Phone Sadaf Dawkins MD Primary Care Physician [place] [facility] [place] Date(s): 08/03/21 - 09/02/[address] [address] Allergies, Adverse Reactions, Alerts Substance [...] 16:07:00 EST, Aerosol, Route to Pharmacy Electronically, [id number], [facility] #[id number], 775, cm, 08/20/21 15:40:... Start Date: 08/20/21 Stop [...] Active Obese class I(Confirmed) Active Care Management [facility] [place] (Confirmed) Active Posttraumatic stress disorder(Confirmed) Active [...]
--- OUTSIDE RECORDS SUMMARY | 2023-01-04 21:40 | XMS_ITS | Continuity of Care Document ---
Author Name Unknown Organization [facility] Address [address] [address]- Care Team Providers Care Inter Com Servicer Name Role Phone Sadaf Dawkins MD Primary Care Physician Encounter [facility] [place] [facility] Date(s): 12/31/19 - 02/07/20 [facility] and [facility] [address] [place] [address] [facility] Attending Physician: Amanda Rutherford CNM Admitting Physician: Amanda Rutherford CNM Referring Physician: Amanda Rutherford CNM Allergies, Adverse Reactions, Alerts Substance Reaction [...] 01/09/2018:29:00 EDT, Aerosol, Route to Pharmacy Electronically, [id number], [facility] #[id number], 168, cm, 01/10/20 15:21:00... Start Date: 01/10/20 [...] 0 Refills, Maintenance, 01/10/20 18:30:00 EDT, Suppository, [facility] #[id number], 1 sprays Vaginally Daily at bedtime, 168, cm, 01/10/20 15:21:00 EDT, Height, 88.5, kg, 01/08/20 11:24:00 EDT, Dry... Start Date: 01/10/20 Status: Ordered Plus Iron oral tablet 1 tablet, By Mouth, Daily, # 30 tablet, 11 Refills, Maintenance, 01/10/20 18:29:00 EDT, Tablet, [facility] #78706, 1 tablet By Mouth Daily, 168, cm, 01/10/20 15:21:00 EDT, Height, 88.5, kg,01/08/20 11:24:00 EDT, Dry Weight Start Date: 01/10/20 Status: Ordered shoe insoles shoe insoles, See Instructions, # 2 each, Refills 0, Tot. Refills 0, Maintenance, dx: foot pain ICD10: M79.672 duration: 99 weeks, 05/02/19 17:41:54 EDT, Compound Start Date: 7/25/19 Status: Ordered Walker See Instructions, # 1 [...] [facility] , Nela MarkhamLivier CC [phone](Confirmed) Active Posttraumatic stress disorder(Confirmed) Active (Confirmed) Active [...]
--- OUTSIDE RECORDS SUMMARY | 2023-01-04 21:40 | XMS_ITS | Continuity of Care Document ---
Author Name Unknown Organization [facility] [place] Address [address] [place] [address]- Care Team Providers Care Churn Driller Name Role Phone Checo John Primary Care Physician [phone] Encounter [facility] NBR [id number] Date(s): 01/11/22 - 03/05/22 [facility] [place] [address] [place], [place] [address] Attending Physician: Violetta Rios MD Allergies, Adverse Reactions, Alerts Substance Reaction [...] 16:07:00 EST, Aerosol, Route to Pharmacy Electronically, [id number], [facility] #66175, 168, cm, 08/20/21 15:40:... Start Date: 08/20/21 [...] multigravida 35+(Confirmed) Active Obese class I(Confirmed) Active [facility] Care Management [facility] , Scarlett Anton [phone](Confirmed) Active Posttraumatic stress disorder(Confirmed) Active (Confirmed) Active Urinary incontinence(Confirmed) Active Ventricular ectopy(Confirmed) Active 1Hx suicide attempt Social History Social History Type Response Smoking Status Former smoker, quit more than 30 days ago entered on: 11/11/21 Sex 1Has been off since 2006
--- OUTSIDE RECORDS SUMMARY | 2023-01-04 21:40 | XMS_ITS | Continuity of Care Document ---
Author Name Unknown Organization [facility] Address [address] [place] [address]- Care Team Providers Care Pet Stylist Name Role Phone Sadaf Dawkins MD Primary Care Physician [phone] Encounter [facility] [place] Date(s): 04/28/21 - 05/28/[address] [address] Allergies, Adverse Reactions, Alerts Substance Reaction Severity Status Milk Products Resolved Pork Active Immunizations Given and Recorded Vaccine Date Status Refusal Reason tetanus/diphtheria/pertussis, acel(Tdap) 10/24/13 Given Medications albuterol CFC free 90 mcg/inh inhalation aerosol 2, puffs, Inhalation, 4 times a day, PRN, # 1 each, Refills 11, Tot. Refills 11, Maintenance, 04/14/21 14:17:00 EDT, Aerosol, Route to Pharmacy Electronically, [id number], [facility] #[id number], 168, cm, 04/14/21 14:05:... Start Date: 04/14/21 [...] [facility] [place] (Confirmed) Active Posttraumatic stress disorder(Confirmed) [...]
--- OUTSIDE RECORDS SUMMARY | 2023-01-04 21:40 | XMS_ITS | Continuity of Care Document ---
Author Name Unknown Organization [facility]era n[facility] Address [address] [place] [address], [address] [place] [address]- Care Team Providers Care Pleat Patternmaker Name Role Phone Sadaf Dawkins MD [id number]s): [facility]/26/20 - 03/27/20 [facility] [address] [facility], [address] [place] [address]- [facility] Attending Physician: AdmOra landon Admitting Physician: AdmtrOra Referring Physician: Admtr, Ora [...] 01/09/2018:29:00 EDT, Aerosol, Route to Pharmacy Electronically, [id number], [facility] #[id number], 168, cm, 01/10/20 15:21:00... Start Date: 01/10/20 Status: Ordered Knee Immobilizer See Instructions, # 1 Unknown, Maintenance, wear as needed on left knee, 01/23/20 13:02:00 EDT, Compound Start Date: 01/23/20 Status: Ordered Miconazole 7 vaginal suppository 1 sprays, Vaginally, Daily at bedtime, # 7 supp, 0 Refills, Maintenance, 01/10/20 18:30:00 EDT, Suppository, [facility] #[id number], 1 sprays Vaginally Daily at bedtime, 168, cm, 01/10/20 15:21:00 EDT, Height, 88.5, kg, 01/08/20 11:24:00 EDT, Dry... Start Date: 01/10/20 Status: Ordered Plus Iron oral tablet 1 tablet, By Mouth, Daily, # 30 tablet, 11 Refills, Maintenance, 01/10/20 18:29:00 EDT, Tablet, [facility] #[id number], 1 tablet By Mouth Daily, 168, cm, 01/10/20 15:21:00 EDT, Height, 88.5, kg,01/08/20 11:24:00 EDT, Dry Weight Start Date: 01/10/20 Status: Ordered promethazine 12.5 mg rectal suppository 1 supp = 12.5 mg, Rectally, Every 6 hours, PRN for nausea/vomiting, # 40 supp, 0 Refills, Maintenance, 03/25/20 14:05:00 EDT, Suppository, [facility] #[id number], 168, cm, 03/25/20 13:36:00 EDT,Height, 84, kg, 01/23/20 0:53:00 EDT, Dry Weight Start Date: 03/25/20 Status: Ordered promethazine 25 mg oral tablet 1 tablet = 25 mg, By Mouth, 2 times a day, # 60 tablet, 0 Refills, Maintenance, 03/25/20 14:05:00 EDT, Tablet, [facility] #[id number], 168, cm, 03/25/20 13:36:00 EDT, Height, 84, kg, 01/23/20 0:53:00 EDT, Dry Weight [...] each, 1 Refills, Maintenance, 02/26/20 16:44:00 EDT, [facility] #[id number], 168, cm, 02/26/20 16:17:00 EDT, Height, 84, [...] Care Management [facility] Nela CC [phone](Confirmed) Active Posttraumatic stress disorder(Confirmed) Active (Confirmed) Active [...]
--- OUTSIDE RECORDS SUMMARY | 2023-01-04 21:40 | XMS_ITS | Continuity of Care Document ---
Author Name Unknown Organization [facility] Address [address] [address]- Care Team Providers Care Satellite Instruction Facilitator Name Role Phone Sadaf Dawkins MD Primary Care Physician En[place] [facility] [place] Date(s): 04/29/20 - 05/29/20 [facility] and [address] [address]- [facility] Allergies, Adverse Reactions, Alerts Substance Reaction Severity Status Milk Products Resolved Pork Active Immunizations Given and Recorded Vaccine Date Status Refusal Reason tetanus/diphtheria/pertussis, acel(Tdap) 10/24/13 Given Medications Abilify 10 mg oral tablet 10 mg, 1, tablet, By Mouth, Daily, # 30 tablet, Refills 0, Tot. Refills 0, Maintenance, 05/22/20 14:30:00 EDT, Route to Pharmacy Electronically, [facility] #[id number], 168, cm, 05/22/20 14:15:00 EDT, Height, 83.7, kg, 04/29/20 15:56:00 EDT, Dry... Start Date: 05/22/20 Status: Ordered Actigall 300 mg oral capsule 300 mg, 1, capsule, By Mouth, 3 times a day, # 90 capsule, Refills 1, Tot. Refills 1, Maintenance, 05/29/20 13:47:00 EDT, Route to Pharmacy Electronically, [facility] #[id number], 168, cm, 05/26/20 15:33:00 EDT, Height, 83.58, kg, 05/26/20 15:33:... Start Date: 05/29/20 Status: Ordered albuterol CFC free 90 mcg/inh inhalation aerosol 2, puffs, Inhalation, 4 times a day, PRN, # 25 Gm, Refills 5, Tot. Refills 5, Maintenance, 01/09/2018:29:00 EDT, Aerosol, Route to Pharmacy Electronically, [id number], [facility] #[id number], 168, cm, 01/10/20 15:21:00... Start Date: 01/10/20 Status: Ordered Plus Iron oral tablet 1 tablet, By Mouth, Daily, # 30 tablet, 11 Refills, Maintenance, 05/22/20 14:31:00 EDT, Tablet, [facility] #[id number], 1 tablet By Mouth Daily, 168, cm, 05/22/20 14:15:00 EDT, Height, 83.7, kg,04/29/20 15:56:00 EDT, Dry Weight Start Date: 05/22/20 Status: Ordered promethazine 12.5 mg rectal suppository 1 supp = 12.5 mg, Rectally, Every 6 hours, PRN for nausea/vomiting, # 40 supp, 1 Refills, Maintenance, 05/29/20 13:45:00 EDT, Suppository, [facility] #[id number], 168, cm, 05/26/20 15:33:00 EDT,Height, 83.58, kg, 05/26/20 15:33:00 EDT, Dry Weight Start Date: 05/29/20 Status: Ordered Zofran 4 mg oral tablet See Instructions, 1 tablet By Mouth Daily, # 20 each, 1 Refills, Maintenance, 05/12/20 16:49:00 EDT, [facility] #[id number], 168, cm, 04/29/20 15:56:00 EDT, Height, 83.7, [...] Management [facility] , Nela Byrd CC [phone](Confirmed) Active Posttraumatic stress disorder(Confirmed) Active (Confirmed) Active [...]
--- OUTSIDE RECORDS SUMMARY | 2023-01-04 21:40 | XMS_ITS | Continuity of Care Document ---
Author Name Unknown Organization [facility] Terry thompsons [facility] Address [address] [place] [address], [address] [place] [address]- Care Team Providers Care Plant Engineering Supervisor Name Role Phone Sadaf Dawkins MD Primary Care Physician Encounter [facility] [place] Date(s): 02/26/20 - 03/04/20 [facility] [address] [facility], [address] [place] [address]- [facility] Attending Physician: Lilia Miller MD Referring Physician: [...] 01/09/2018:29:00 EDT, Aerosol, Route to Pharmacy Electronically, [id number], [facility] #[id number], 168, cm, 01/10/20 15:21:00... Start Date: 01/10/20 Status: Ordered Knee Immobilizer See Instructions, # 1 Unknown, Maintenance, wear as needed on left knee, 01/23/20 13:02:00 EDT, Compound Start Date: 01/23/20 Status: Ordered Miconazole 7 vaginal suppository 1 sprays, Vaginally, Daily at bedtime, # 7 supp, 0 Refills, Maintenance, 01/10/20 18:30:00 EDT, Suppository, [facility] #61076, 1 sprays Vaginally Daily at bedtime, 168, cm, 01/10/20 15:21:00 EDT, Height, 88.5, kg, 01/08/20 11:24:00 EDT, Dry... Start Date: 01/10/20 Status: Ordered Plus Iron oral tablet 1 tablet, By Mouth, Daily, # 30 tablet, 11 Refills, Maintenance, 01/10/20 18:29:00 EDT, Tablet, [facility] #96102, 1 tablet By Mouth Daily, 168, cm, [...] each, 1 Refills, Maintenance, 02/26/20 16:44:00 EDT, [facility] #[id number], 168, cm, 02/26/20 16:17:00 EDT, Height, 84, [...] Care Management [facility] , Nela MarkhamLivier CC [phone](Confirmed) Active Posttraumatic stress disorder(Confirmed) Active (Confirmed) Active [...]
--- OUTSIDE RECORDS SUMMARY | 2023-01-04 21:40 | XMS_ITS | Continuity of Care Document ---
Author Name Unknown Organization [facility] Address [address] [place] [address]- Care Team Providers Care Clam Dredge Boat Captain Name Role Phone Sadaf Dawkins MD Primary Care Physician [place] [facility] [place] Date(s): 11/03/20 - 12/03/20 [facility] [address] [place], [place] [address] Allergies, Adverse Reactions, Alerts Substance Reaction Severity Status Milk Products Resolved Pork Active Immunizations Given and Recorded Vaccine Date Status Refusal Reason tetanus/diphtheria/pertussis, acel(Tdap) 10/24/13 Given Medications Abilify 10 mg oral tablet 10 mg, 1, tablet, By Mouth, Daily, # 30 tablet, Refills 0, Tot. Refills 0, Maintenance, 05/22/20 14:30:00 EDT, Route to Pharmacy Electronically, [facility] #[id number], 168, cm, 05/22/20 14:15:00 EDT, Height, 83.7, kg, 04/29/20 15:56:00 EDT, Dry... Start Date: 05/22/20 Status: Ordered Actigall 300 mg oral capsule 300 mg, 1, capsule, By Mouth, 3 times a day, # 90 capsule, Refills 1, Tot. Refills 1, Maintenance, 05/29/20 13:47:00 EDT, Route to Pharmacy Electronically, [facility] #[id number], 168, cm, 05/26/20 15:33:00 EDT, Height, 83.58, kg, 05/26/20 15:33:... Start Date: 05/29/20 Status: Ordered albuterol CFC free 90 mcg/inh inhalation aerosol 2, puffs, Inhalation, 4 times a day, PRN, # 25 Gm, Refills 5, Tot. Refills 5, Maintenance, 01/09/2018:29:00 EDT, Aerosol, Route to Pharmacy Electronically, [id number], [facility] #[id number], 168, cm, 01/10/20 15:21:00... Start Date: 01/10/20 Status: Ordered Diflucan 150 mg oral tablet 1 tablet = 150 mg, By Mouth, Once, # 1 tablet, 0 Refills, Soft Stop, 11/11/20 13:24:00 EST, Tablet,[facility] #[id number], Partial fill upon patient request if the prescription is for a schedule II opioid drug., 168, cm, 10/29/20 9:46:00 EST, He... Start Date: 11/11/20 Status: Ordered ibuprofen 600 mg oral tablet 600 mg, 1, tablet, By Mouth, 4 times a day, PRN, # 40 tablet, Refills 0, Tot. Refills 0, Maintenance, Pain, 06/10/20 10:28:00 EDT, Route to Pharmacy Electronically, [facility] #02603, 168, cm, 06/10/20 9:28:00 EDT, Height, 83.58, kg, ... Start Date: 06/10/20 Status: Ordered Plus Iron oral tablet 1 tablet, By Mouth, Daily, # 30 tablet, 11 Refills, Maintenance, 05/22/20 14:31:00 EDT, Tablet, [facility] #97351, 1 tablet By Mouth Daily, 168, cm, 05/22/20 14:15:00 EDT, Height, 83.7, kg,04/29/20 15:56:00 EDT, Dry Weight Start Date: 05/22/20 Status: Ordered promethazine 12.5 mg rectal suppository 1 supp = 12.5 mg, Rectally, Every 6 hours, PRN for nausea/vomiting, # 40 supp, 1 Refills, Maintenance, 05/29/20 13:45:00 EDT, Suppository, [facility] #[id number], 168, cm, 05/26/20 15:33:00 EDT,Height, 83.58, kg, [...] each, 1 Refills, Maintenance, 05/12/20 16:49:00 EDT, [facility] #40351, 168, cm, 04/29/20 15:56:00 EDT, Height, 83.7, [...] Active Care Management [facility] Nela CC [phone](Confirmed) Active Posttraumatic stress disorder(Confirmed) Active (Confirmed) Active [...]
--- OUTSIDE RECORDS SUMMARY | 2023-01-04 21:41 | XMS_ITS | Continuity of Care Document ---
Author Name Unknown Organization [facility] ter Address [address] [place] [address]- Care Team Providers Care Theater Education Teacher Name Role Phone Sadaf Dawkins MD Primary Care Physician Encounter [facility] [place] Date(s): 10/03/19 - 10/03/[address] [address]- [place] Attending Physician: Maykel WOLF, [address] Allergies, Adverse Reactions, Alerts Substance Reaction Severity Status Milk Products Active Pork Active Immunizations Given and Recorded Vaccine Date Status Refusal Reason tetanus/diphtheria/pertussis, acel(Tdap) 10/24/13 Given Medications albuterol CFC free 90 mcg/inh inhalation aerosol 2, puffs, Inhalation, 4 times a day, PRN, # 25 Gm, Refills 5, Tot. Refills 5, Maintenance, 05/02/1916:45:21 EDT, Aerosol, Route to Pharmacy Electronically, [id number], [facility] #[id number] Start Date: 05/02/19 Status: Ordered Banophen 50 mg oral capsule 2 capsule, By Mouth, Daily at bedtime, PRN NEEDED FOR INSOMNIA, # 60 capsule, 0 Refills, Soft Stop, 09/30/19 7:45:00 EST, [facility] #05051, 168, cm, 08/20/19 13:51:00 EST, Height, 97.9,kg, 05/21/19 16:53:00 EDT, Dry Weight Start Date: 09/30/19 Status: Ordered cloNIDine 0.1 mg oral tablet 0.1 mg, 1, tablet, By Mouth, 3 times a day, # 90 tablet, Refills 4, Tot. Refills 4, Maintenance, 05/09/19 12:24:02 EDT, Route to Pharmacy Electronically, [id number], [facility] #[id number] Start Date: 05/09/19 Stop Date: 10/06/19 Status: [...] EST, Suspension Start Date: 08/20/19 Status: Ordered divalproex sodium 500 mg oral [...] Maintenance, 07/16/16 22:20:46, Route to Pharmacy Electronically, [id number], [facility] [address] Start Date: 07/16/16 Status: Ordered Flagyl 500 mg oral tablet 1 tablet = 500 mg, By Mouth, Every 12 hours, for 7 days, # 14 tablet, 0 Refills, Acute 10/10/19 11:04:00 EST, 10/03/19 11:04:00 EST, Tablet, [facility] #[id number], 168, cm, 10/03/19 10:33:00 EST, Height, 93.3, kg, 10/03/19 10:33:00 EST, Dry Weight Start Date: 10/03/19 Stop Date: 10/10/19 Status: Ordered prazosin 5 mg oral capsule 5 mg, 1, capsule, By Mouth, Daily at bedtime, # 30 capsule, Refills 4, Tot. Refills 4, Maintenance,05/09/19 12:25:10 EDT, Route to Pharmacy Electronically, [id number], [id number] Start Date: 05/09/19 Stop Date: 10/06/19 Status: [...] of marijuana use(Confirmed) Active Care Management [facility] , Nela Byrd CC [phone](Confirmed) Active Posttraumatic stress disorder(Confirmed) Active Sarcoid(Confirmed) 2 Active Urinary incontinence(Confirmed) Active 1Hx suicide attempt 2Possible dx sarcoid. Hx recurrent right uveitis. Elevated MELISSA level. PET w/ increased uptake in parotids. Social History Social History Type Response Smoking Status Never smoker entered on: 10/26/14 Sex 1Has been off since 2006
--- OUTSIDE RECORDS SUMMARY | 2023-01-04 21:41 | XMS_ITS | Continuity of Care Document ---
Author Name Unknown Organization [facility] Address [address] [place] [address]- Care Team Providers Care Artificial Breeding Distributor Name Role Phone Sadaf Dawkins MD Primary Care Physician Encounter [facility] [place] Date(s): 04/26/21 - 05/26/[address] [address] Allergies, Adverse Reactions, Alerts Substance Reaction Severity Status Milk Products Resolved Pork Active Immunizations Given and Recorded Vaccine Date Status Refusal Reason tetanus/diphtheria/pertussis, acel(Tdap) 10/24/13 Given Medications albuterol CFC free 90 mcg/inh inhalation aerosol 2, puffs, Inhalation, 4 times a day, PRN, # 1 each, Refills 11, Tot. Refills 11, Maintenance, 04/14/21 14:17:00 EDT, Aerosol, Route to Pharmacy Electronically, [id number], [facility] #[id number], 168, cm, 04/14/21 14:05:... Start Date: 04/14/21 [...] Active Care Management [facility] (Confirmed) Active Posttraumatic stress [...]
--- OUTSIDE RECORDS SUMMARY | 2023-01-04 21:41 | XMS_ITS | Continuity of Care Document ---
Author Name Unknown Organization [facility] Address [address] [place] [id number] Care Team Providers Care Crystal Lapper Name Role Phone No PCP, NO PCP Primary Care Physician Unavailab le Encounter Date(s): 01/24/22 - 01/24/[address] [address] Encounter Diagnosis URI (upper respiratory infection)(Discharge Diagnosis) - 01/24/22 Discharge Disposition: Home Attending Physician: Quentin Calderon DO Allergies, Adverse Reactions, Alerts No Known Allergies Assessment and Plan Extracted from: Title:ED Provider Note Author:Adriana Mcallister PA-C Date:01/24/22 1.??URI (upper respiratory i nfection)?? (J06.9: Acute upper respiratory infection, unspecified) Orders: Afrin 0.05% nasal spray, 2 sprays, Nasal, BID, # 15 mL, 0 Refill(s), Maintenance Coronavirus (SARS-CoV-2) Molecular-Rapid Test, Nasopharyngeal Swab, collect Stat, 01/24/22 17:49:00 EDT, Once, Nurse collect, Suspected CoV-2 Discharge Patient, 01/24/22 18:08:00 EDT, Home, Condition Stable 01/24/2022 18:08:03 ?? Condition:?? improved ?? Disposition:?? home Discharge Vitals:?? 01/24/22 18:28?? T:??36.7 Deg C Temperature Oral??HR:??70 bpm Peripheral Pulse Rate??RR:??18??BP:??122/74??SpO2:??99 %??OT:??Room air Oxygen Therapy? Medications Afrin 0.05% nasal spray 2 sprays, Nasal, BID, # 15 mL, 0 Refill(s), Maintenance Start Date: 01/24/22 Stop Date: 01/27/22 Status: Ordered Mental Status 01/24/22 Eye Opening Response [place] Spontaneous ly - 4 Best Verbal Response Ángela Oriented - 5 Best Motor Response [place] Obeys comman ds - 6 Ángela Coma Score 15 Results Laboratory List Name Date Coronavirus (SARS-CoV-2) Molecular-Rapid Test 01/24/22 Most recent to oldest [Reference Range]: 1 SARS-CoV-2 (COVID-19) [Negative] Negativ e (01/24/22 6:08 PM) Vital Signs Most recent to oldest [Reference Range]: 1 2 Height/Length Measured 168 cm (01/24/22 3:41 PM) Actual Weight 92.5 kg (01/24/22 3:41 PM) Blood Pressure [91-140/90 mmHg] 122/74mm Hg (01/24/22 6:28 PM) 146/81mmHg *HI* (01/24/22 3:41 PM) Body Mass Index Measured 32.77 kg/m2 (01/24/22 3:41 PM) SpO2 [90-100 %] 99 % (01/24/22 6:28 PM) 100 % (01/24/22 3:41 PM) Temperature Oral [36.1-37.9 Deg C] 36.7 Deg C (01/24/22 6:28 PM) Temperature Tympanic 36.8 Deg C (01/24/22 3:41 PM) Peripheral Pulse Rate [50-100 bpm] 70 bp m (01/24/22 6:28 PM) 99 bpm (01/24/22 3:41 PM) Respiratory Rate [12-20 br/min] 18 br/mi n (01/24/22 6:28 PM) 18 br/min (01/24/22 3:41 PM) Social History Social History Type Response Smoking Status Never (less than 100 in lifetime) entered on: 01/24/22 Sex Hospital Discharge Instructions Patient Education 01/24/2022 18:02:10 Upper Respiratory Infection, Adult, Fxcu-rt-Dlkj Upper Respiratory Infection, Adult An upper respiratory infection (URI) affects the nose, throat, and upper air passages. URIs are caused by germs (viruses). The most common type of URI is often called the common cold. Medicines cannot cure URIs, but you can do things at home to relieve your symptoms. URIs usually get better within 7???10 days. Follow these instructions at home: Activity ??? Rest as needed. ??? If you have a fever, stay home from work or school until your fever is gone, or until your doctor says you may return to work or school. ??? You should stay home until you cannot spread the infection anymore (you are not contagious). ??? Your doctor may have you wear a face mask so you have less risk of spreading the infection. Relieving symptoms ??? Gargle with a salt-water mixture 3???4 times a day or as needed. To make a salt-water mixture, completely dissolve ?1 tsp of salt in 1 cup of warm water. ??? Use a cool-mist humidifier to add moisture to the air. This can help you breathe more easily. Eating and drinking ??? Drink enough fluid to keep your pee (urine) pale yellow. ??? Eat soups and other clear broths. General instructions ??? Take gmnx-jtw-kbocpkx and prescription medicines only as told by your doctor. These include cold medicines, fever reducers, and cough suppressants. ??? Do not use any products that contain nicotine or tobacco. These include cigarettes and e-cigarettes. If you need help quitting, ask your doctor. ??? Avoid being where people are smoking (avoid secondhand smoke). ??? Make sure you get regular shots and get the flu shot every year. ??? Keep all follow-up visits as told by your doctor. This is important. How to avoid spreading infection to others ??? Wash your hands often with soap and water. If you do not have soap and water, use hand reporting coordinator. ??? Avoid touching your mouth, face, eyes, or nose. ??? Cough or sneeze into a tissue or your sleeve or elbow. Do not cough or sneeze into your hand orinto the air. Contact a doctor if: ??? You are getting worse, not better. ??? You have any of these: ??? A fever. ??? Chills. ??? Brown or red mucus in your nose. ??? Yellow or brown fluid (discharge)coming from your nose. ??? Pain in your face, especially when you bend forward. ??? Swollen neck glands. ??? Pain with swallowing. ??? White areas in the back of your throat. Get help right away if: ??? You have shortness of breath that gets worse. ??? You have very bad or constant: ??? Headache. ??? Ear pain. ??? Pain in your forehead, behind your eyes, and over your cheekbones (sinus pain). ??? Chest pain. ??? You have long-lasting (chronic) lung disease along with any of these: ??? Wheezing. ??? Long-lasting cough. ??? Coughing up blood. ??? A change in your usual mucus. ??? You have a stiff neck. ??? You have changes in your: ??? Vision. ??? Hearing. ??? Thinking. ??? Mood. Summary ??? An upper respiratory infection (URI) is caused by a germ called a virus. The most common type of URI is often called the common cold. ??? URIs usually get better within 7???10 days. ??? Take vmmc-mzb-rddoxzd and prescription medicines only as told by your doctor. This information is not intended to replace advice given to you by your health care provider. Make sure you discuss any questions you have with your health care provider. Document Revised: 06/03/2021 Document Reviewed: 06/03/2021 [employer] Patient Education ?? 2020 [employer] Follow Up Care 01/24/2022 15:41:18 With:Follow up with primary care provider Address:Unknown When:1 to 2 days With:[facility] Address: [address] [address] [phone] When:1 to 2 days Care Team Personnel Name: No PCP, NO PCP
--- OUTSIDE RECORDS SUMMARY | 2023-01-04 21:41 | XMS_ITS | Continuity of Care Document ---
Author Name Unknown Organization [facility] Address [address] [place] [address]- Care Team Providers Care Front Attendant Name Role Phone Checo John Primary Care Physician Encounter [facility] Date(s): 05/05/22 - 06/04/22 [facility] [place] [address] [place] [address]- Allergies, Adverse Reactions, Alerts Substance Reaction Severity [...] 16:07:00 EST, Aerosol, Route to Pharmacy Electronically, [id number], [id number], 168, cm, 08/20/21 15:40:... Start Date: 08/20/21 [...] Active Obese class I(Confirmed) Active [facility] Care Management Nathan Stover , Scarlett Walton [phone](Confirmed) Active Posttraumatic stress disorder(Confirmed) Active (Confirmed) Active Urinary incontinence(Confirmed) Active Ventricular ectopy(Confirmed) Active 1Hx suicide attempt Social History Social History Type Response Smoking Status Former smoker, quit more than 30 days ago entered on: 11/11/21 Sex 1Has been off since 2006 Care Team Personnel Name: Checo John Address: [address] [place] [id number]
--- OUTSIDE RECORDS SUMMARY | 2023-01-04 21:41 | XMS_ITS | Continuity of Care Document ---
Author Name Unknown Organization [facility] Address [address] [place] [id number] Care Team Providers Care Business Performance Analyst Name Role Phone No PCP, NO PCP Primary Care Physician Unavailab le Encounter Date(s): 01/24/22 - 01/24/[address] [address] Discharge Disposition: Left Without Being Seen Attending Physician: Dmitriy Sanchez MD Allergies, Adverse Reactions, Alerts No Known Allergies Assessment and Plan Extracted from: Title:ED Provider Note Author:Adriana Mcallister PA-C Date:01/24/22 Orders: Discharge Patient, 01/24/22 13:42:00 EDT, Against Medical Advice, pt LWBS Medications Afrin 0.05% nasal spray 2 sprays, Nasal, BID, # 15 mL, 0 Refill(s), Maintenance Start Date: 01/24/22 Stop Date: 01/27/22 Status: Ordered Vital Signs Most recent to oldest [Reference Range]: 1 Actual Weight 92.1 kg (01/24/22 11:07 AM) Blood Pressure [91-140/90 mmHg] 113/69mm Hg (01/24/22 11:07 AM) SpO2 [90-100 %] 100 % (01/24/22 11:07 AM) Temperature Tympanic 36.7 Deg C (01/24/22 11:07 AM) Peripheral Pulse Rate [50-100 bpm] 81 bp m (01/24/22 11:07 AM) Respiratory Rate [12-20 br/min] 16 br/mi n (01/24/22 11:07 AM) Social History Social History Type Response Smoking Status Never (less than 100 in lifetime) entered on: 01/24/22 Sex Care Team Personnel Name: No PCP, NO PCP
--- OUTSIDE RECORDS SUMMARY | 2023-01-04 21:41 | XMS_ITS | Continuity of Care Document ---
Author Name Unknown Organization [facility] Address [address] [place] [address]- Care Team Providers Care Belt Glass Sander Name Role Phone Checo John Primary Care Physician [phone] Encounter [facility] Date(s): 10/29/22 - 12/28/22 [facility] [address] [place] [address] Attending Physician: Logan Billingsley MD Admitting Physician: Logan Billingsley MD Allergies, Adverse Reactions, Alerts Substance Reaction [...] 16:07:00 EST, Aerosol, Route to Pharmacy Electronically, [id number], [facility] #[id number], 168, cm, 08/20/21 15:40:... Start Date: 08/20/21 [...] Refills, Soft Stop, 07/08/22 12:02:00 EDT, Tablet, [facility] #[id number], Partial fill upon patient request if the prescription is for a schedule... Start Date: 07/08/22 Status: Ordered fluconazole 150 mg oral tablet 1 tablet = 150 mg, By Mouth, Once, Repeat dose if still having symptoms in 72 hours, # 2 tablet, 0 Refills, Soft Stop, 12/06/22 9:23:00 EST, Tablet, [facility] #[id number], Partial fill upon patient request if the [...] class I Confirmed Active N [facility] [phone] Confirmed Active Posttraumatic stress disorder Confirmed Active [...] Member Role: Primary Care Nurse Address: Address: [address] [place] [address]- [place] Name: Mally Ham RN Position: [facility] RN Member Role: Primary Care Nurse Name: Checo John Position: [facility] PCO Associate Professional Member Role: PCP Address: Address: [address] [place] [address] [place] [address]- Name: Rossana Avalos RN Position: [facility] SN RN Member Role: Primary Care Nurse Care Team Related Persons Name: PASQUALE REID Address: home [address] [place] [address] Name: ANICETO LUNA Address: home [address] [place] [address] Name: NAIMA LUNA Address: Address: home [address] [place] [address] [place] Name: PT STATES NO ONE, NONE
--- OUTSIDE RECORDS SUMMARY | 2023-01-04 21:41 | XMS_ITS | Continuity of Care Document ---
Author Name Unknown Organization [facility] Address [address] [place] [address]- Care Team Providers Care Oil Expeller Operator Name Role Phone Sadaf Dawkins MD Primary Care Physician Encounter [facility] Date(s): 01/26/21 - 02/25/[address] [address]- Attending Physician: Admtr, Ar8 Allergies, Adverse Reactions, Alerts Substance Reaction Severity Status Milk Products Resolved Pork Active Immunizations Given and Recorded Vaccine Date Status Refusal Reason tetanus/diphtheria/pertussis, acel(Tdap) 10/24/13 Given Medications Abilify 10 mg oral tablet 10 mg, 1, tablet, By Mouth, Daily, # 30 tablet, Refills 0, Tot. Refills 0, Maintenance, 05/22/20 14:30:00 EDT, Route to Pharmacy Electronically, [facility] #[id number], 168, cm, 05/22/20 14:15:00 EDT, Height, 83.7, kg, 04/29/20 15:56:00 EDT, Dry... Start Date: 05/22/20 Status: Ordered Actigall 300 mg oral capsule 300 mg, 1, capsule, By Mouth, 3 times a day, # 90 capsule, Refills 1, Tot. Refills 1, Maintenance, 05/29/20 13:47:00 EDT, Route to Pharmacy Electronically, [facility] #[id number], 168, cm, 05/26/20 15:33:00 EDT, Height, 83.58, kg, 05/26/20 15:33:... Start Date: 05/29/20 Status: Ordered albuterol CFC free 90 mcg/inh inhalation aerosol 2, puffs, Inhalation, 4 times a day, PRN, # 25 Gm, Refills 5, Tot. Refills 5, Maintenance, 01/09/2018:29:00 EDT, Aerosol, Route to Pharmacy Electronically, [id number], [facility] #[id number], 168, cm, 01/10/20 15:21:00... Start Date: 01/10/20 Status: Ordered Diflucan 150 mg oral tablet 1 tablet = 150 mg, By Mouth, Once, # 1 tablet, 0 Refills, Soft Stop, 11/11/20 13:24:00 EST, Tablet,[facility] #[id number], Partial fill upon patient request if the prescription is for a schedule II opioid drug., 168, cm, 10/29/20 9:46:00 EST, He... Start Date: 11/11/20 Status: Ordered ibuprofen 600 mg oral tablet 600 mg, 1, tablet, By Mouth, 4 times a day, PRN, # 40 tablet, Refills 0, Tot. Refills 0, Maintenance, Pain, 06/10/20 10:28:00 EDT, Route to Pharmacy Electronically, [facility] #[id number], 168, cm, 06/10/20 9:28:00 EDT, Height, 83.58, kg, ... Start Date: 06/10/20 Status: Ordered Plus Iron oral tablet 1 tablet, By Mouth, Daily, # 30 tablet, 11 Refills, Maintenance, 05/22/20 14:31:00 EDT, Tablet, [facility] #[id number], 1 tablet By Mouth Daily, 168, cm, 05/22/20 14:15:00 EDT, Height, 83.7, kg,04/29/20 15:56:00 EDT, Dry Weight Start Date: 05/22/20 Status: Ordered promethazine 12.5 mg rectal suppository 1 supp = 12.5 mg, Rectally, Every 6 hours, PRN for nausea/vomiting, # 40 supp, 1 Refills, Maintenance, 05/29/20 13:45:00 EDT, Suppository, [facility] #[id number], 168, cm, 05/26/20 15:33:00 EDT,Height, 83.58, kg, [...] each, 1 Refills, Maintenance, 05/12/20 16:49:00 EDT, [facility] #[id number], 168, cm, 04/29/20 15:56:00 EDT, Height, 83.7, [...] maternal age) multigravida 35+(Confirmed) Active Care Management [facility] (Confirmed) Active Posttraumatic stress disorder(Confirmed) [...]
--- OUTSIDE RECORDS SUMMARY | 2023-01-04 21:41 | XMS_ITS | Continuity of Care Document ---
Author Name Unknown Organization [facility] [employer] [facility] Address [address] [place] [address]- Care Team Providers Care Market Research Executive Name Role Phone Checo John Primary Care Physician Encounter [facility] [id number] Date(s): 11/11/21 - 11/18/21 [facility] [address] [place] [address]- Attending Physician: Checo John Allergies, Adverse Reactions, [...] 16:07:00 EST, Aerosol, Route to Pharmacy Electronically, [id number], [facility] #[id number], 168, cm, 08/20/21 15:40:... Start Date: 08/20/21 [...] multigravida 35+(Confirmed) Active Obese class I(Confirmed) Active [facility] Care Management [facility] , Scarlett Walton [phone](Confirmed) Active Posttraumatic stress disorder(Confirmed) Active (Confirmed) Active Sarcoid(Confirmed) 2 Active Urinary incontinence(Confirmed) Active 1Hx suicide attempt 2Possible dx sarcoid. Hx recurrent right uveitis. Elevated MELISSA level. PET w/ increased uptake in parotids. Vital Signs Most recent to oldest [Reference Range]: 1 Height 168 cm (11/11/21 11:12 AM) Weight 91.8 kg (11/11/21 11:12 AM) Body Mass Index [18.5-24.99] 32.53 *>HHI* (11/11/21 11:12 AM) Blood Pressure [90-138/55-84 mm Hg] 130/ 78mm Hg (11/11/21 11:12 AM) Liters per Minute 0 L/min (11/11/21 11:12 AM) Mode of Delivery (Oxygen) Room air (11/11/21 11:12 AM) Blood pressure sites Arm, left (11/11/21 11:12 AM) Weight Obtained Via Pediatric scale (11/11/21 11:12 AM) Social History Social History Type Response Smoking Status Former smoker, quit more than 30 days ago entered on: 11/11/21 Sex 1Has been off since 2006
--- OUTSIDE RECORDS SUMMARY | 2023-01-04 21:41 | XMS_ITS | Continuity of Care Document ---
Author Name Unknown Organization [facility] Address [address] [place] [address], [address] [place] [address]- Care Team Providers Care Quality Review Specialist Name Role Phone Sadaf Dawkins MD Primary Care Physician [place] [facility] Date(s): 05/29/20 - 06/05/20 [facility] Terry Whitaker[facility] [address] [facility] [place] [address]- [facility] Attending Physician: Lizy Stock MD Referring Physician: [...] 05/22/20 14:30:00 EDT, Route to Pharmacy Electronically, [facility] #[id number], 168, cm, 05/22/20 14:15:00 EDT, Height, 83.7, kg, 04/29/20 15:56:00 EDT, Dry... Start Date: 05/22/20 Status: Ordered Actigall 300 mg oral capsule 300 mg, 1, capsule, By Mouth, 3 times a day, # 90 capsule, Refills 1, Tot. Refills 1, Maintenance, 05/29/20 13:47:00 EDT, Route to Pharmacy Electronically, [facility] #[id number], 168, cm, 05/26/20 15:33:00 EDT, Height, 83.58, kg, 05/26/20 15:33:... Start Date: 05/29/20 Status: Ordered albuterol CFC free 90 mcg/inh inhalation aerosol 2, puffs, Inhalation, 4 times a day, PRN, # 25 Gm, Refills 5, Tot. Refills 5, Maintenance, 01/09/2018:29:00 EDT, Aerosol, Route to Pharmacy Electronically, [id number], [facility] #[id number], 168, cm, 01/10/20 15:21:00... Start Date: 01/10/20 Status: Ordered Plus Iron oral tablet 1 tablet, By Mouth, Daily, # 30 tablet, 11 Refills, Maintenance, 05/22/20 14:31:00 EDT, Tablet, [facility] #[id number], 1 tablet By Mouth Daily, 168, cm, 05/22/20 14:15:00 EDT, Height, 83.7, kg,04/29/20 15:56:00 EDT, Dry Weight Start Date: 05/22/20 Status: Ordered promethazine 12.5 mg rectal suppository 1 supp = 12.5 mg, Rectally, Every 6 hours, PRN for nausea/vomiting, # 40 supp, 1 Refills, Maintenance, 05/29/20 13:45:00 EDT, Suppository, [facility] #[id number], 168, cm, 05/26/20 15:33:00 EDT,Height, 83.58, kg, 05/26/20 15:33:00 EDT, Dry Weight Start Date: 05/29/20 Status: Ordered Zofran 4 mg oral tablet See Instructions, 1 tablet By Mouth Daily, # 20 each, 1 Refills, Maintenance, 05/12/20 16:49:00 EDT, [facility] #[id number], 168, cm, 04/29/20 15:56:00 EDT, Height, 83.7, [...] Active Care Management [facility] , Nela Byrd [facility] [phone](Confirmed) Active Posttraumatic stress disorder(Confirmed) Active (Confirmed) Active [...]
--- OUTSIDE RECORDS SUMMARY | 2023-01-04 21:41 | XMS_ITS | Continuity of Care Document ---
Author Name Unknown Organization [facility] Address [address] [address]- Care Team Providers Care Natural Resource Economist Name Role Phone Checo John Primary Care Physician [phone] [facility] ACCT R [id number] Date(s): 11/24/22 - 12/01/22 [facility] [address] [address]- Attending Physician: Norman Vera MD Admitting Physician: [...] 16:07:00 EST, Aerosol, Route to Pharmacy Electronically, [id number], [facility] #[id number], 168, cm, 08/20/21 15:40:... Start Date: 08/20/21 [...] Refills, Soft Stop, 07/08/22 12:02:00 EDT, Tablet, [id number], Partial fill upon patient request if the [...] class I Confirmed Active [facility] [phone] Confirmed Active Posttraumatic stress disorder Confirmed Active Confirmed Active Urinary incontinence Confirmed Active Ventricular ectopy Confirmed Active 1Hx suicide attempt Vital Signs Most recent to oldest [Reference Range]: 1 Height 168 cm (11/24/22 10:50 AM) Pulse Rate [55-90 bpm] 86 bpm (11/24/22 10:50 AM) Blood Pressure [90-138/55-84 mm Hg] 127/ 82mm Hg (11/24/22 10:50 AM) Blood pressure sites Arm, left (11/24/22 10:50 AM) Social History Social History Type Response Smoking Status Former smoker, quit more than 30 days ago entered on: 11/11/21 Sex 1Has been off since 2006 Cardiology Outpatient Note * Norman Vera MD: PERFORM Event Display: Cardiology Note Office Authored Date: Patient: ??JUAN C LUNA ? Age:??42 Years?Sex:??Female?:??1980?? Patient Hx Provider Clinical Summary Pre-operative cardiovascular examination History of PVCs, 2%??burden and asymptomatic Question of sarcoidosis of the eye, with history of iritis work-up??still in process.?? No known lung or cardiac involvement. Asthma Obesity ?? 42-year-old woman??referred for cardiac pre-operative evaluation in advance of??liposuction and breast lift procedure.?? Cardiac evaluation requested because of history of PVCs.?? These apparently were seen on a prior EKG which prompted a Holter monitor in 2020 which demonstrated??2% burden of PVCs, sometimes in a bigeminal pattern, without sustained VT and no symptoms. ?? She has since had an echocardiogram which appears??reassuring, normal biventricular size and function and no significant valve disease. ?? No evidence of coronary ischemia??or arrhythmias with treadmill exercise stress test. ??Above average functional capacity. ??Magnesium level and lipids are also acceptable. ?? She reports??good functional capacity, can complete 2 flights of stairs without dyspnea. ??No angina.?? Not on any systemic steroids, no history of stroke, heart failure, CAD, stents??of her coronaries,??insulin use, and her??kidney function is normal. ?? Impression and Plan: No evidence of coronary ischemia??or arrhythmias with treadmill exercise stress test. ??Above average functional capacity.? Additional cardiovascular testing is not indicated in advance of surgery. ??She is an acceptable??cardiac risk for surgery. ??Metabolic equivalents level greater than 4. ??Revised cardiac risk index is 0, suggesting low cardiac risk for a moderate risk procedure. ?? RTC one year Physical Exam Vitals & Measurements IA:??86?? BP:??127/82?? HT:??168??cm?? Weight lb/oz: 200 lb 3 oz GENERAL: ??Alert and oriented x3, no acute distress. HEENT: Mucous membranes pink and moist. ?? NECK: ??No JVD?? LUNGS: Clear to auscultation bilaterally. ??No crackles, wheezing, rhonchi. ?? HEART: ??Regular rate and rhythm, normal S1, S2. ??No murmurs, rubs, or gallops.?? ABDOMEN: Soft, nontender, nondistended.?? EXTREMITIES: ??No pitting edema, cyanosis, clubbing. ?? PULSES: 2+ radials SKIN: Warm and well perfused. ?? NEURO: ??Oriented to person, time, and place, following commands, and moving all extremities.?? MUSCULOSKELETAL: ??Negative.?? Allergies Pork Home Medications albuterol CFC free 90 mcg/inh inhalation aerosol, 2 puffs, Inhalation, 4 times a day, PRN, 11 refills Depakote ER, 250 mg, By Mouth, Daily fluconazole 150 mg oral tablet, 150 mg= 1 tablet, By Mouth, Once, Repeat dose if still having symptoms in 72 hours Lab Results Cardiology Labs WBC: 9.2 k/mm3 (06/27/22) RBC:??3.14 m/mm3??Low (06/27/22) Hgb:??8.2 Gm/dL??Low (06/27/22) Hct:??25.9 %??Low (06/27/22) MCV: 82.5 femtoliters (06/27/22) MCH:??26.1 pg??Low (06/27/22) MCHC:??31.7 g/dL??Low (06/27/22) Platelet Count:??489 k/mm3??High (06/27/22) RDW-SD: 45.6 femtoliters (06/27/22) Nucleated RBC (Automated): 0 #/100 WBC'S (06/27/22) Abs. Neut: 6.5 k/mm3 (06/27/22) Abs. Lymph: 1.9 k/mm3 (06/27/22) Abs. Hardy: 0.4 k/mm3 (06/27/22) Abs. Eo: 0.3 k/mm3 (06/27/22) Abs. Baso: 0 k/mm3 (06/27/22) Neut %: 71 % (06/27/22) Hardy %: 4.7 % (06/27/22) Eos %: 3.3 % (06/27/22) Baso %: 0.3 % (06/27/22) Imm Gran: 0.5 % (06/27/22) Abs. Imm Gran: 0.1 k/mm3 (06/27/22) INR: 1 (05/17/22) Protime (PT): 10.3 seconds (05/17/22) APTT: 26.3 seconds (05/17/22) Sodium: 138 mmol/L (06/27/22) Potassium: 4 mmol/L (06/27/22) Chloride: 101 mmol/L (06/27/22) Bicarbonate Level: 27 mmol/L (06/27/22) Glucose Level:??124 mg/dL??High (06/27/22) Hemoglobin A1C (Monitoring): 5.6 % (02/09/22) BUN: 7 mg/dL (06/27/22) Creatinine-Blood: 0.9 mg/dL (06/27/22) Calcium: 9.1 mg/dL (06/27/22) Protein, Total:??5.9 Gm/dL??Low (06/27/22) Albumin: 3.8 Gm/dL (06/27/22) Alkaline Phosphatase: 73 units/L (06/27/22) AST (SGOT): 21 units/L (06/27/22) ALT (SGPT): 25 units/L (06/27/22) Bilirubin, Total: 0.2 mg/dL (06/27/22) Cholesterol: 191 mg/dL (05/25/22) Triglycerides:??150 mg/dL??High (05/25/22) HDL Cholesterol: 45 mg/dL (05/25/22) LDL Cholesterol: 116 mg/dL (05/25/22) Non HDL Cholesterol: 146 mg/dL (05/25/22) Direct Low Density Lipoprotein: 129 mg/dL (05/25/22) TSH: 1.29 uIU/mL (02/09/22) Free T4: 0.95 ng/dL (02/09/22) Diagnostic Impression ECG ECG 12-Lead ?? 10:41:17 Please click on pdf link to open report ?? Signed By: Norman Vera MD Echo Echocardiogram - Complete ?? 14:32:04 Summary The left ventricle is normal in size, wall thickness and systolic function. The ejection fraction is 55-65%. ?? The right ventricle is normal in size and function. ?? There is no significant valve disease. ?? Comparison No prior study available for comparison. ?? Signature ?? Signed By: Epi WOLF, Omari Hung Problem List/Past Medical History Ongoing AMA (advanced maternal age) multigravida 35+ Anxiety Asthma [facility] Care Management [facility] Pooja Stover [phone] Bipolar disorder (manic depression) Chronic eczema History of abnormal cervical Pap smear History of depression History of marijuana use Intrahepatic cholestasis of Irritable bowel Latent tuberculosis Migraine Obese class I Posttraumatic stress disorder Sarcoidosis of skin Urinary incontinence Ventricular ectopy Historical Fracture of bone Procedure/Surgical History Complete repair of rotator cuff Social History Alcohol Use: Past. Frequency: 1-2 times per week. Type: Wine. Alcohol use in household: Yes., 01/08/2020 Frequency: 1-2 times per week. Type: Wine. Binge drinking: No., 10/24/2013 Employment/School Status: Employed. Other: [employer] 01/08/2020 Previous employment/school: [employer]., 10/24/2013 Exercise Self assessment: Good condition., 01/08/2020 Exercise frequency: 3-4 times/week. Exercise type: Aerobics., 10/24/2013 Home/Environment Living situation: Home/Independent. Lives with: Children, Spouse. DCF involvement: None., 01/08/2020 Nutrition/Health Diet: Regular., 01/08/2020 Sexual Sexually involved in last 6 months: No. Sexual orientation: Heterosexual. Gender identity: Female. Ever been sexually involved? Yes. STD/HIV prevention: Condom use most of the time. Other sexual concerns: History of gonnorhea at age 25.., 10/24/2013 Substance Abuse Use: Never. Substance abuse in household: No., 01/08/2020 Tobacco Use: Former smoker, quit more than 30 days ago., 11/11/2021 Use: Former smoker. Type: Cigarettes. Tobacco use times per day: 1 pack/week., 10/24/2013 Family History Mother: CAD - Coronary artery disease; Hypertension Father: Hyperlipidemia Pat. Grandmother: Stroke Pat. Grandfather: Cancer - unknown origin; Diabetes mellitus type I Brother: Schizophrenia ? 14-DEC-2013 07:24:12<$> Patient Care team information Care Team Personnel Name: Jerome MARTINEZ, Era Alvarez Position: Reference Physician Member Role: Primary Care Nurse Address: Address: [address] [place] [address]- [place] Name: Mally Ham RN Position: [facility] RN Member Role: Primary Care Nurse Name: Checo John Position: [facility] PCO Associate Professional Member Role: PCP Address: Address: [address] [place] [address]- [place] Name: Rossana Avalos RN Position: [facility] SN RN Member Role: Primary Care Nurse Care Team Related Persons Name: PASQUALE REID Address: home [address] [place] [address] Name: ANICETO LUNA Address: home [address] [place] [address] Name: NAIMA LUNA Address: Address: home [address] [place] [address] Name: PT STATES NO ONE, NONE
--- OUTSIDE RECORDS SUMMARY | 2023-01-04 21:41 | XMS_ITS | Continuity of Care Document ---
Author Name Unknown Organization [facility] Address [address] [place] [address]- Care Team Providers Care Personnel Arbitrator Name Role Phone Checo John Primary Care Physician Encounter [facility] Date(s): 01/20/22 - 02/19/22 [facility] [address] [place] [address]- Attending Physician: Ora Brown Admitting Physician: AdmOra [...] 16:07:00 EST, Aerosol, Route to Pharmacy Electronically, [id number], [facility][id number], 956, cm, 08/20/21 15:40:... Start Date: 08/20/21 Stop [...] multigravida 35+(Confirmed) Active Obese class I(Confirmed) Active [facility] Care Management Nathna Stover , Scarlett Walton [phone](Confirmed) Active Posttraumatic stress disorder(Confirmed) Active (Confirmed) Active [...]
--- OUTSIDE RECORDS SUMMARY | 2023-01-04 21:41 | XMS_ITS | Continuity of Care Document ---
Author Name Unknown Organization [facility] Address [address] [place] [address]- Care Team Providers Care Tafe Lecturer Name Role Phone Checo John Primary Care Physician Encounter [facility] Date(s): 08/17/22 - 08/17/[address] [address]- Discharge Disposition: A-D/C Walkout Attending Physician: Not [...] 16:07:00 EST, Aerosol, Route to Pharmacy Electronically, [id number], [facility][id number], 168, cm, 08/20/21 15:40:... Start Date: 08/20/21 [...] Refills, Soft Stop, 07/08/22 12:02:00 EDT, Tablet, [id number], Partial fill upon patient request if the [...] Confirmed Active Obese class I Confirmed Active [facility] Care Management [facility], Scarlett Anton [phone] Confirmed Active Posttraumatic stress disorder Confirmed Active Confirmed Active Urinary incontinence Confirmed Active Ventricular ectopy Confirmed Active 1Hx suicide attempt Vital Signs Most recent to oldest [Reference Range]: 1 Oxygen Saturation [94-100 %] 99 % (08/17/22 10:45 AM) Pulse Rate [55-90 bpm] 89 bpm (08/17/22 10:45 AM) Blood Pressure [90-138/55-84 mm Hg] 116/ 68mm Hg (08/17/22 10:45 AM) Respiratory Rate [16-30 br/min] 20 br/mi n (08/17/22 10:45 AM) Temperature [96.8-100.4 DegF] 99.9 DegF (08/17/22 10:45 AM) Mode of Delivery (Oxygen) Room air (08/17/22 10:45 AM) Blood pressure sites Arm, right (08/17/22 10:45 AM) Temperature Route Oral (08/17/22 10:45 AM) Social History Social History Type Response Smoking Status Former smoker, quit more than 30 days ago entered on: 11/11/21 Sex 1Has been off since 2006 Patient Care team information Care Team Personnel Name: Era Cano NP Position: [facility] PCO Associate Professional Member Role: Primary Care Nurse Name: Mally Ham RN Position: [facility] RN Member Role: Primary Care Nurse Name: Checo John Position: [facility] PCO Associate Professional Member Role: PCP Address: Address: [address] [place] [address]- Name: Rossana Avalos RN Position: [facility] SN RN Member Role: Primary Care Nurse Care Team Related Persons Name: PASQUALE REID Address: home [address] [place] [address] Name: ANICETO LUNA Address: home [address] [place] [address] Name: NAIMA LUNA Address: Address: [address] [place] [address] [place] Name: PT STATES NO ONE, NONE
--- OUTSIDE RECORDS SUMMARY | 2023-01-04 21:41 | XMS_ITS | Continuity of Care Document ---
Author Name Unknown Organization [facility] Address [address] [place] [address]- Care Team Providers Care Automatic Beading Lathe Operator Name Role Phone Sadaf Dawkins MD Primary Care Physician Encounter [facility] Date(s): 05/25/21 - 06/24/[address] [address] Allergies, Adverse Reactions, Alerts Substance Reaction Severity Status Milk Products Resolved Pork Active Immunizations Given and Recorded Vaccine Date Status Refusal Reason tetanus/diphtheria/pertussis, acel(Tdap) 10/24/13 Given Medications albuterol CFC free 90 mcg/inh inhalation aerosol 2, puffs, Inhalation, 4 times a day, PRN, # 1 each, Refills 11, Tot. Refills 11, Maintenance, 04/14/21 14:17:00 EDT, Aerosol, Route to Pharmacy Electronically, [id number], [facility] #[id number], 168, cm, 04/14/21 14:05:... Start Date: 04/14/21 [...] age) multigravida 35+(Confirmed) Active Care Management [facility] (Confirmed) Active Posttraumatic stress disorder(Confirmed) [...]
--- OUTSIDE RECORDS SUMMARY | 2023-01-04 21:41 | XMS_ITS | Continuity of Care Document ---
Author Name Unknown Organization [facility] Primary [facility] e [place] Address [address] [place] [address]- Care Team Providers Care Trimming Machine Operator Name Role Phone Checo John Primary Care Physician Encounter [facility] NBR [id number] Date(s): 02/11/22 - 03/13/22 [facility] [address], [place] [address] Attending Physician: Ora Brown Admitting Physician: Ora [...] 16:07:00 EST, Aerosol, Route to Pharmacy Electronically, [id number], [id number], 168, cm, 08/20/21 15:40:... Start Date: 08/20/21 [...] Obese class I(Confirmed) Active N Care Management [facility] [phone](Confirmed) Active Posttraumatic stress disorder(Confirmed) Active (Confirmed) Active Urinary incontinence(Confirmed) Active Ventricular ectopy(Confirmed) Active 1Hx suicide attempt Social History Social History Type Response Smoking Status Former smoker, quit more than 30 days ago entered on: 11/11/21 Sex 1Has been off since 2006
[2023-01-04 22:00] VITALS: BP 115/69; PULSE 96; RESP 16; TEMP 36.6; O2SAT 97
--- NOTE | 2023-01-04 22:04 | PC.NURSE ---
Dr. Brandt at bedside to drain fluid collection.
[2023-01-04] MEDS: Lidocaine HCl 1 % MPF 5 ML VIAL INFILTRATI (22:05)
--- NOTE | 2023-01-04 22:31 | MHC.EDTECH ---
this pct currency examiner with provider to drain fluid collection to left thigh .
== END 2023-01-04 23:30 | disposition home or self-care (01) ==
PROVIDERS: Emergency Provider Internal Medicine; PCP Physician Assistant
DX: S70.12XA Contusion of left thigh, initial encounter (principal); R60.0 Localized edema; X58.XXXA Exposure to other specified factors, initial encounter; Y93.9 Activity, unspecified; Y92.9 Unspecified place or not applicable; Y99.9 Unspecified external cause status; Z79.899 Other long term (current) drug therapy
CPT/HCPCS: 93971; 99284

== ENCOUNTER → 2023-01-10 13:53 | Outpatient (BNVA) | payer OTHER, SELFPAY | PROVIDERS: PCP Physician Assistant; Visit Provider Surgery | DX: M96.843 Postprocedural seroma of a musculoskeletal structure following other procedure (principal) | CPT/HCPCS: 10140; 99202 ==

== ENCOUNTER 2023-04-11 14:04 | Emergency (ER) | payer OTHER, SELFPAY ==
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
[2023-04-11 14:18] VITALS: BP 118/73; BP 128/74; PULSE 74; PULSE 77; RESP 15; TEMP 36.8; O2SAT 99; BMI 28.4
[2023-04-11 16:06] VITALS: BP 125/66; PULSE 74; RESP 16; O2SAT 100
== END 2023-04-11 16:09 ==
PROVIDERS: Emergency Provider Emergency Medicine Emergency Medical Services
DX: S20.219A Contusion of unspecified front wall of thorax, initial encounter (principal); Y04.2XXA Assault by strike against or bumped into by another person, initial encounter; Y93.9 Activity, unspecified; Y92.9 Unspecified place or not applicable; Y99.9 Unspecified external cause status; R07.81 Pleurodynia
CPT/HCPCS: 71101; 99283; 99284

== ENCOUNTER 2023-07-11 17:05 | Emergency (ER) | payer OTHER, SELFPAY ==
[2023-07-11 17:09] VITALS: BP 108/71; PULSE 93; RESP 18; TEMP 36.8; O2SAT 98
[2023-07-11 17:25] LABS: UPreg QC Valid YES; Urine Pregnancy POSITIVE (NEGATIVE)
[2023-07-11 17:26] LABS: Appearance Urine Cloudy; Color Urine Yellow; Glucose Urine UA Negative (Negative); Leukocyte Esterase Urine Negative (Negative); Nitrite Urine Negative (Negative); PH 5.5 (5.0-9.0); Specific Gravity - Urine >= 1.030 (1.005-1.025); UMIC TRIGGER UACC YES; Urine Blood Moderate (2+) (Negative); Urine Ketones Negative (Negative); Urine Protein 30 (1+) mg/dL (Neg-Trace)
[2023-07-11 17:40] LABS: Bacteria Urine 4+ (None Seen); UACC Culture Trigger YES
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
== END 2023-07-11 18:02 | disposition home or self-care (01) ==
PROVIDERS: Emergency Provider Student in an Organized Health Care Education/Training Program; PCP Physician Assistant
DX: O9A.311 Physical abuse complicating pregnancy, first trimester (principal); Y07.030 Male partner, current, perpetrator of maltreatment and neglect; O09.521 Supervision of elderly multigravida, first trimester; Z3A.09 9 weeks gestation of pregnancy
CPT/HCPCS: 81001; 81025; 87086; 99284

== ENCOUNTER 2023-07-17 14:24 | Emergency (ER) | payer OTHER, SELFPAY ==
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
[2023-07-17 14:44] VITALS: BP 125/86; PULSE 111; RESP 20; TEMP 37.4; O2SAT 97; BMI 29.0
[2023-07-17 15:32] VITALS: BP 101/71; PULSE 97; RESP 18; TEMP 36.9; O2SAT 96
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
--- NOTE | 2023-07-17 16:04 | MHC.EDTECH ---
This junior copywriter went into the patients room after seeing security walk back a male visitor. Patient has lab work in and this junior copywriter went in to complete this. While in the room, the patient was crying and visably upset. Patient stated to the visitor the following statements, I do not want you here. Please leave. You got what you wanted I don't have a baby anymore. This patient continued to tell the visitor to leave with no response from the visitor. The visitor asked did she lose the baby? This junior copywriter stated I do not know. Patient continued to ask the visitor to leave. The visitor stated I deserve to know whats going on. The patient stated You do not need to know anything. Once lab work was complete. This junior copywriter walked out of the room and asked for security to be called to remove the visitor at the request of the patient, immediately. A couple minutes after that, the visitor left the room and security assured that he left the department.
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
--- NOTE | 2023-07-17 17:36 | MHC.CARE ---
Pt was provided resource booklet, [facility] was also discussed. Pt was given contact information for [facility] to explore as pt requested discharge.
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
== END 2023-07-17 17:48 | disposition home or self-care (01) ==
PROVIDERS: Emergency Provider Emergency Medicine; PCP Physician Assistant
DX: O03.9 Complete or unspecified spontaneous abortion without complication (principal); R10.30 Lower abdominal pain, unspecified; N89.8 Other specified noninflammatory disorders of vagina; F33.1 Major depressive disorder, recurrent, moderate; Z3A.10 10 weeks gestation of pregnancy; Z79.899 Other long term (current) drug therapy
CPT/HCPCS: 0353U; 36415; 76801; 76817; 80053; 83735; 84702; 85025; 99284